=== PATIENT | female | born 1970 | race Caucasian/White ===

== ENCOUNTER 2018-10-07 07:32 | Outpatient (CLI) | payer BC, SELFPAY ==
[2018-10-07 10:44] LABS: ALT 25 U/L (12-78); AST 12 U/L (15-37); Albumin 3.5 g/dL (3.4-5.0); Alkaline Phosphatase 85 U/L (46-116); Anion Gap 7.2 mmol/L (3-11); BUN 14 mg/dL (7-18); Bilirubin, Total 0.3 mg/dL (0.2-1.0); CO2 27.8 mmol/L (21.0-32.0); CREATININE 0.94 mg/dL (0.55-1.02); Chloride 106 mmol/L (98-107); Cholesterol 191 mg/dL (50-200); Glucose 101 mg/dL (70-100); HDL Cholesterol 56 mg/dL (40-60); LDL CHOLESTEROL 108 mg/dL (<100); Potassium 4.4 mmol/L (3.5-5.1); Sodium 141 mmol/L (136-145); Total Protein 6.4 g/dL (6.4-8.2); Triglyceride 106 mg/dL (30-150)
== END 2018-10-07 07:52 ==
PROVIDERS: PCP Family Medicine; Visit Provider Family Medicine
DX: E78.5 Hyperlipidemia, unspecified (principal); I51.9 Heart disease, unspecified
CPT/HCPCS: 36415; 80053; 80061; 83721

== ENCOUNTER 2019-01-09 00:27 | Outpatient (CLI) | payer BC, SELFPAY ==
--- NOTE | 2019-01-09 14:17 | DI.US_ITS ---
SYMPTOMS/DIAGNOSIS: 6 MOS BULGE/PAIN RIGHT LATERAL TO UMBILICUS, ? 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 A reducible fat-containing hernia was demonstrated, increasing with Valsalva. IMPRESSION: Reducible fatty-containing hernia to the right of the umbilicus.
--- NOTE | 2019-01-09 15:15 | DI.MRI_ITS ---
SYMPTOMS/DIAGNOSIS: RIGHT KNEE PAIN FOR PAST 4 WEKS, INTERNAL DERANGEMENT, M23.91, CLICKS AND LIMITED EXTENSION S/P TWISTING INJURY 1 MO AGO MRI OF THE RIGHT KNEE: Fat-suppressed T2 axial, proton density and fat-suppressed T2 sagittal and coronal and proton density oblique sagittal sequences were performed. There are no plain films available for comparison. The cruciate and collateral ligaments and extensor mechanism appear intact. There is a moderate-sized joint effusion. There is also some edema seen anterior to the patellar tendon, as well as throughout the subcutaneous fat. There is abnormal signal in the posterior horn of the medial meniscus with both horizontal components as well as a radially oriented tear at the medial posterior horn. The medial meniscus is mildly peripherally displaced, particularly at the anterior horn. There are osteophytes from the medial femoral condyle and medial tibial plateau. There is mild degenerative signal change in the marrow, as well as mild cartilage thinning. Minimal cartilage thinning is seen involving the patellar cartilage inferiorly. The lateral meniscus appears intact. There is a tiny Anna's cyst. IMPRESSION: Complex tear of the posterior horn of the medial meniscus. Degenerative changes of the medial femorotibial joint. Mild patellofemoral degenerative changes.
== END 2019-01-09 00:47 ==
PROVIDERS: PCP Family Medicine; Visit Provider Family Medicine
DX: K45.8 Other specified abdominal hernia without obstruction or gangrene (principal); M25.561 Pain in right knee; M23.91 Unspecified internal derangement of right knee; S83.241A Other tear of medial meniscus, current injury, right knee, initial encounter; M17.11 Unilateral primary osteoarthritis, right knee
CPT/HCPCS: 73721; 76705

== ENCOUNTER 2019-03-07 08:12 | Day surgery (SDC) | payer BC, SELFPAY ==
[2019-03-07] VITALS (10 sets, daily range): BP systolic 90–132; BP diastolic 50–89; PULSE 62–83; RESP 9–18; TEMP 35–36.5; O2SAT 92–99
[2019-03-07] MEDS: Lactated Ringers 1,000 ML 80 ML IV (09:00)
[2019-03-07] MEDS: ceFAZolin 2 GM/50 ML BAG IVPB (09:26)
[2019-03-07] MEDS: Bupivacaine 0.5% Pres-Free 30 ML VIAL (10:18)
--- NOTE | 2019-03-07 10:28 | PDOC.DSDIS_ITS ---
Documented by User: YOMAIRA Galindo 03/07/19 10:33 Discharge Plan Disposition Patient Disposition: HOME Condition: Good Discharge Details Reason For Visit: Right knee arthroscopy Attending Provider: Jorge Lanza Primary Care Provider: Rubi Fernandez Home Meds and New Rx's Prescriptions: New hydrocodone-acetaminophen 5-325 mg tablet 1 tab PO Q6H PRN (Reason: pain) Qty: 6 RF: 0 acetaminophen 500 mg tablet 500 mg PO Q6H PRN (Reason: pain) Qty: 60 RF: 0 ondansetron 4 mg tablet,disintegrating 4 mg PO QID PRN (Reason: nausea and vomiting) Qty: 8 RF: 0 Continued lisinopril 20 mg tablet 20 mg PO DAILY Qty: 90 RF: 4 furosemide 40 mg tablet See Rx Instructions PO DAILY Qty: 135 RF: 5 potassium chloride 20 MEQ tablet,ER particles/crystals 20 meq PO DAILY Qty: 90 RF: 4 nitroglycerin 0.4 MG tablet, sublingual 0.4 mg Sublingual PRN Qty: 25 RF: 11 aspirin [Aspir-81] 81 MG tablet,delayed release (DR/EC) 81 mg PO DAILY Qty: 1 RF: 0 cetirizine [Zyrtec] 10 mg tablet 10 mg PO DAILY Qty: 90 RF: 12 atorvastatin 40 mg tablet 40 mg PO DAILY Qty: 90 RF: 11 ranitidine HCl 300 mg capsule 300 mg PO DAILY Qty: 90 RF: 3 ibuprofen 600 mg Tablet 600 mg PO TID PRNQty: 60 RF: 0 Discharge Instructions Stand Alone Forms: Pool Knee Arthroscopy, DSU Post op Instructions, Rosa Johnson (DSU) Referrals: Jorge Lanza MD [ [facility] STAFF PHYSICIAN] - Equipment/Supplies: Partial Weight Bearing Crutches Activity:: Activity as Tolerated Remove Dressings/Wound Care:: 72 hours Shower/Bathe:: 72 hours Diet:: As Tolerated Discharge Orders Discharge Orders: Discharge Order (Routine); Ordered 03/07/19 Ordered By: Kendell Marie Discharge Data Discharge Date/Time-TO BE ENTERED AT DEPARTURE: 03/07/19 14:15 DS: Diagnosis Discharge Diagnosis (1) Tear of medial meniscus of right knee: Status: Acute Documented by User: Jorge Lanza MD 03/08/19 06:41 Discharge Plan Disposition Patient Disposition: HOME Condition: Good Discharge Details Reason For Visit: Right knee arthroscopy Attending Provider: Jorge Lanza Primary Care Provider: Rubi Fernandez Home Meds and New Rx's Prescriptions: New hydrocodone-acetaminophen 5-325 mg tablet 1 tab PO Q6H PRN (Reason: pain) Qty: 6 RF: 0 acetaminophen 500 mg tablet 500 mg PO Q6H PRN (Reason: pain) Qty: 60 RF: 0 ondansetron 4 mg tablet,disintegrating 4 mg PO QID PRN (Reason: nausea and vomiting) Qty: 8 RF: 0 Continued lisinopril 20 mg tablet 20 mg PO DAILY Qty: 90 RF: 4 furosemide 40 mg tablet See Rx Instructions PO DAILY Qty: 135 RF: 5 potassium chloride 20 MEQ tablet,ER particles/crystals 20 meq PO DAILY Qty: 90 RF: 4 nitroglycerin 0.4 MG tablet, sublingual 0.4 mg Sublingual PRN Qty: 25 RF: 11 aspirin [Aspir-81] 81 MG tablet,delayed release (DR/EC) 81 mg PO DAILY Qty: 1 RF: 0 cetirizine [Zyrtec] 10 mg tablet 10 mg PO DAILY Qty: 90 RF: 12 atorvastatin 40 mg tablet 40 mg PO DAILY Qty: 90 RF: 11 ranitidine HCl 300 mg capsule 300 mg PO DAILY Qty: 90 RF: 3 ibuprofen 600 mg Tablet 600 mg PO TID PRNQty: 60 RF: 0 Discharge Instructions Stand Alone Forms: Pool Knee Arthroscopy, DSU Post op Instructions, Rosa Johnson (DSU) Referrals: Jorge Lanza MD [ [facility] STAFF PHYSICIAN] - Equipment/Supplies: Partial Weight Bearing Crutches Activity:: Activity as Tolerated Remove Dressings/Wound Care:: 72 hours Shower/Bathe:: 72 hours Diet:: As Tolerated Discharge Orders Discharge Orders: Discharge Order (Routine); Ordered 03/07/19 Ordered By: Kendell Marie Discharge Data Discharge Date/Time-TO BE ENTERED AT DEPARTURE: 03/07/19 14:15
[2019-03-07] MEDS: fentaNYL 100 MCG/2 ML VIAL IVP (11:14)
[2019-03-07] MEDS: Droperidol 5 MG/2 ML VIAL 0.625 MG IVP (12:39)
[2019-03-07] MEDS: HYDROcodone 5/Acetaminophen 325 TAB PO (12:57)
--- NOTE | 2019-03-08 06:47 | ROE_ITS ---
Date of service: 03/07/19 Time of Service: 12:42 Operative Note DATE OF PROCEDURE: 03/07/19 PRE-OP DIAGNOSIS: Right knee medial meniscus tear POST-OP DIAGNOSIS: other (Right knee medial meniscus tear involving the meniscal root) PROCEDURE: Arthroscopic partial medial meniscectomy, medial compartment chondroplasty SURGEON: Jorge Lanza ANESTHESIA: GETA ESTIMATED BLOOD LOSS: 0 PATHOLOGY: none sent COMPLICATIONS: None Patient was transported to: PACU Patient's condition: stable Indications: I have seen Silvia in clinic for symptoms of a meniscus tear. This was confirmed based on MRI and exam findings. Nonoperative measures were exhausted but disability and pain persisted. I discussed knee arthroscopy with meniscal intervention with the patient. I reviewed the risks of the procedure to include, but not limited to, bleeding, infection, pain, stiffness, damage to nerves or vessels, recurrence, blood clot. Despite these risks, the patient elected to proceed. Findings: A diagnostic arthroscopy was performed with the following findings: Suprapatellar Pouch: Some mild diffuse inflammatory change, no loose bodies Medial Compartment: Complex medial meniscal tear with both vertical and horizontal components along with a radial tear just medial to the meniscal root, grade II chondromalacia, no loose bodies Notch: ACL and PCL were intact Lateral Compartment: No meniscal tear, intact meniscal root, no significant chondromalacia or signs of arthritis, no loose bodies Patellofemoral Compartment: No significant chondromalacia, no apparent patellar maltracking Procedure Description: Silvia was greeted in the preoperative holding area where the correct side was identified and marked. The consent was reviewed with the patient and signed. The history and physical was updated. All questions were answered. Silvia was taken back to the operating room. The patient was placed into the reeder pine position on the operating room table. A nonsterile tourniquet was placed high onto the leg but not used. All bony prominences were well padded. Prophylactic antibiotics in the form of cefazolin were administered. The right leg was then prepped with Chloraprep and draped in a standard fashion with stockinette and extremity drape. A timeout to confirm correct identity, side and site, procedure, allergies, anesthesia, and medical concerns was performed. The leg was placed into a pneumatic leg alfredo, [id number]. A standard lateral portal was made at the lateral border of the patella tendon in line with the inferior pole of the patella, soft spot. The skin and deep tissue was incised sharply and the blunt trochar was inserted atraumatically. A diagnostic arthroscopy was performed and the findings are listed above. The suprapatellar pouch had mild inflammatory change. The patellofemoral articulation showed no articular damage as well as good tracking. The lateral gutter had no loose bodies and the medial gutter had no loose bodies. The knee was brought into some valgus stress in extension to open the medial compartment. A medial portal was made, localized by a spinal needle. The portal was created with an #11 blade through skin and capsule under direct visualization avoiding any meniscal injury. A probe was then inserted into the medial compartment. The medial com partment was fully inspected. The chondral surface of the tibia showed grade I/II chondromalacia and the surface of the femur showed grade II/III chondromalacia. The medial meniscus had a complex meniscal tear. This had free fragment seen at the posterior horn with both horizontal and vertical components. These were debrided down. However, and probing the meniscus there is seem to be some extra motion to the meniscus and I would expect. With further debridement I was able to expose a radial tear which was just medial to the posterior root. There are signs of attempted healing at this site. The periphery was still slightly attached to the capsule which prevented gross mobility. I used a shaver to debride down the radial tear. I also trephinated the area with a spinal needle to hopefully encourage some healing potential. Using a notable stitch device, I tried to place a suture for a [id number] radial repair. However, the stump attached to the posterior tibia was too small. Given some of the mild to moderate arthritic changes, her age, and the plan for a faster recovery and return to work, I did not perform any meniscal root repair. Cartilage surfaces were debrided of any flaps, leaving any intact fibers. The notch was then inspected which showed an intact ACL and an intact PCL. The leg was then brought into a figure of 4 position. The lateral compartment was fully inspected with the arthroscope and a probe. The chondral surface of the lateral femur showed no significant chondromalacia. The chondral surface of the lateral tibia showed no significant chondromalacia. The lateral meniscus had no meniscal tear. The arthroscope was brought back into the suprapatellar pouch and the leg was in full extension. The knee was thoroughly irrigated with the arthroscopic fluid on high flow and pressure. Inflow was stopped and excess fluid was removed. The wounds were closed with 4-0 Nylon. They were dressed with Xeroform, 4x4 gauze, ABD pad, Kerlix and an MADELYN wrap. A cryo-cuff was applied. The patient tolerated the procedure well and was returned to the Same Day Surgery area in a stable condition suffering no known complication. After she had awake from anesthesia I did inform her about the discovery of a radial tear at the level of the meniscal root. I also discussed how I did not do a complete repair given the situation. She expressed understanding and was happy that we did not move forward with meniscal repair as she is uncertain if she wants to go through that rehabilitation.
== END 2019-03-07 14:15 | disposition home or self-care (01) ==
PROVIDERS: PCP Family Medicine; Visit Provider Student in an Organized Health Care Education/Training Program
PROC: (CPT 29870; principal; 2019-03-07 09:30)
DX: S83.231A Complex tear of medial meniscus, current injury, right knee, initial encounter (principal); X58.XXXA Exposure to other specified factors, initial encounter; M94.261 Chondromalacia, right knee; I10 Essential (primary) hypertension
CPT/HCPCS: 29881; E0114; J0690; J1100; J1790; J1885; J2250; J2405; J3010

== ENCOUNTER 2019-08-29 08:12 | Day surgery (SDC) | payer BC, SELFPAY ==
[2019-08-29] VITALS (11 sets, daily range): BP systolic 87–130; BP diastolic 48–90; PULSE 57–80; RESP 12–17; TEMP 36–36.6; O2SAT 97–100
[2019-08-29] MEDS: Lactated Ringers 1,000 ML 80 ML IV (08:58)
--- NOTE | 2019-08-29 09:00 | ROE_ITS ---
DATE: AUGUST 29, 2019 Preoperative Diagnosis: Incisional hernia Postoperative Diagnosis: Same Operation: Incisional hernia repair with mesh Surgeon: Ena Regan M.D. Fine Arts Chair: YOMAIRA Martinez Indications: This is a 49 year-old woman with a tender lump at her umbilicus. The patient has had multiple prior surgeries with incisions utilizing the umbilical area primarily for laparoscopy. Procedure: She was placed supine on the operating table. Under general anesthetic, she was prepped and draped sterilely. The patient had several small infra-umbilical incisions present that could not be utilized to repair the hernia. I therefore made a curvilinear incision extending vertically to the right of the umbilicus. This was done after injecting local anesthetic. The subcutaneous tissue was divided with cautery down to a moderate sized hernia sac. This was dissected free of the surrounding subcutaneous tissue and the umbilical sac was divided and elevated to fully expose the fascial defect. There was an approximately 3 cm. fascial defect. The hernia sac had a trapped piece of omentum that was freed up from the sac and reduced. I amputated the majority of the hernia sac which was not sent to pathology. The undersurface of the fascia was cleared off and then a medium Ventralex mesh was placed under the fascia to cover the hernia defect. This was sutured in four quadrants with #0 Prolene sutures in a buried mattress pattern. I then closed the redundant hernia sac and fascia over the mesh with a running #0 Vicryl stitch. The pocket was irrigated. Hemostasis was achieved with cautery. A #3-0 Vicryl stitch was used to suture down the umbilical sac and then to reapproximate the subcutaneous tissue. The skin was closed with a running #4-0 Monocryl subcuticular stitch. She tolerated the procedure well and was stable to recovery.
[2019-08-29] MEDS: ceFAZolin 2 GM/50 ML BAG IVPB (09:32)
[2019-08-29] MEDS: Lidocaine 2% Multi-Dose 50 ML VIAL (09:46)
--- NOTE | 2019-08-29 11:01 | W.PM.DSUDISC ---
Discharge Plan Disposition Patient Disposition: HOME Condition: Good Discharge Details Reason For Visit: Incisional hernia repair with mesh Attending Provider: Ena Regan Primary Care Provider: Rubi Fernandez Home Meds and New Rx's Prescriptions: Continued nitroglycerin 0.4 MG tablet, sublingual 0.4 mg Sublingual PRN Qty: 25 RF: 11 aspirin [Aspir-81] 81 MG tablet,delayed release (DR/EC) 81 mg PO DAILY Qty: 1 RF: 0 cetirizine [Zyrtec] 10 mg tablet 10 mg PO DAILY Qty: 90 RF: 12 atorvastatin 40 mg tablet 40 mg PO DAILY Qty: 90 RF: 11 potassium chloride 20 mEq tablet,ER particles/crystals 20 meq PO DAILY Qty: 90 RF: 4 furosemide 40 mg tablet See Rx Instructions PO DAILY Qty: 135 RF: 5 lisinopril 20 mg tablet 20 mg PO DAILY Qty: 90 RF: 4 acetaminophen 500 mg tablet 500 mg PO Q6H PRN (Reason: pain) Qty: 60 RF: 0 Discharge Instructions Additional Instructions: The top bandage can be removed tomorrow. The steri strips will usually stick for about a week. When the edges start to curl up, they can be removed. It is okay to shower tomorrow, the water can run over the steri strips Do not swim or soak in a tub for two weeks Call for any concerns including fever, increased pain, vomiting, incision redness or drainage. Do not lift more than 15 pounds for four weeks. Walking and stairs are fine. Do not drive if on narcotic pain meds or if limited by pain. May use Tylenol alternating with ibuprofen for pain control. Ice is also an option. The maximum dose for Tylenol is 4000 mg/day. May use ibuprofen 800 mg every 8 hours as needed. If concerned about constipation, you may use a stool softener or milk of magnesia. Referrals: Ena Regan MD [ [facility] STAFF PHYSICIAN] - (Return for a postop check in 10-14 days) Activity:: Do not lift more than 15 pounds for four weeks Remove Dressings/Wound Care:: 24 hours Shower/Bathe:: 24 hours Diet:: As Tolerated Discharge Orders Discharge Orders: Discharge Order (Routine); Ordered 08/29/19 Ordered By: Ena Regan DS: Diagnosis Discharge Diagnosis (1) Incisional hernia: Status: Acute
[2019-08-29] MEDS: Normal Saline Flush 10 ML SYR IV (11:32)
[2019-08-29] MEDS: fentaNYL 100 MCG/2 ML VIAL IVP ×2 (11:32→12:00)
== END 2019-08-29 13:41 | disposition home or self-care (01) ==
PROVIDERS: PCP Family Medicine; Visit Provider Surgery
PROC: (CPT 49560; principal; 2019-08-29 09:30)
DX: K43.2 Incisional hernia without obstruction or gangrene (principal); I10 Essential (primary) hypertension
CPT/HCPCS: 49560; 49568; C1781; J0690; J1100; J1885; J2405; J3010

== ENCOUNTER 2020-05-18 17:43 | Emergency (ER) | payer OTHER, SELFPAY ==
--- NOTE | 2020-05-18 17:45 | DI.US_ITS ---
EXAM: US LOWER EXTREMITY VENOUS RT CLINICAL HISTORY: R/O DVT TECHNIQUE: Right lower extremity venous ultrasound performed using grayscale, color-flow, and spectr al Doppler analysis. COMPARISON: No exams were available for comparison FINDINGS: The right common femoral, femoral and popliteal veins demonstrate normal compressibility, augmentatio n, and color Doppler. The posterior tibial veins are patent. The saphenofemoral junction is unremark able. There is no evidence of a Anna cyst. Edema in the soft tissues of the calf. IMPRESSION: No DVT. DATA REPOSITORY:
[2020-05-18 17:50] VITALS: BP 183/95; PULSE 109; TEMP 37.1; O2SAT 97
--- NOTE | 2020-05-18 17:57 | ED.GENADUL_ITS ---
Discharge Plan Disposition Patient Disposition: HOME Condition: Stable Discharge Details Chief Complaint: Vascular Clinical Impression: Cellulitis of leg, right Primary Care Provider: Rubi Fernandez ED Provider: Deborah Littlejohn Home Meds and New Rx's Prescriptions: New cephalexin 500 mg tablet 500 mg PO BID 7 Days Qty: 14 RF: 0 No Action nitroglycerin 0.4 MG tablet, sublingual 0.4 mg Sublingual PRN Qty: 25 RF: 11 aspirin [Aspir-81] 81 MG tablet,delayed release (DR/EC) 81 mg PO DAILY Qty: 1 RF: 0 cetirizine [Zyrtec] 10 mg tablet 10 mg PO DAILY Qty: 90 RF: 12 atorvastatin 40 mg tablet 40 mg PO DAILY Qty: 90 RF: 11 potassium chloride 20 mEq tablet,ER particles/crystals 20 meq PO DAILY Qty: 90 RF: 4 furosemide 40 mg tablet See Rx Instructions PO DAILY Qty: 135 RF: 5 lisinopril 20 mg tablet 20 mg PO DAILY Qty: 90 RF: 4 acetaminophen 500 mg tablet 500 mg PO Q6H PRN (Reason: pain) Qty: 60 RF: 0 Discharge Instructions Instructions: Cellulitis (ED) Additional Instructions: The Doppler of your right lower extremity was negative for DVT at this time. At this time we will treat you for possible cellulitis. Please keep an eye on the redness and swelling. Should be getting better in the next 2 to 3 days. Return to the ER for any fever, worsening redness, worsening swelling, chest pain or shortness of breath. Follow up with primary care provider in 3-5 days. Return to ED sooner if any worsening or concerns. Increase oral fluids. Please take Tylenol or Ibuprofen with food every 4-6 hours as needed for pain and swelling. Referrals: Rubi Fernandez MD, [place] [Primary Care Provider] - Discharge Data Discharge Date/Time-TO BE ENTERED AT DEPARTURE: 05/18/20 20:50 Medical Decision Making Labs ordered to rule out cellulitis or infectious nature. CBC, CMP, d-dimer, and IV. Ultrasound venous Doppler right lower extremity ordered. Tach has been called and and is due to be here at approximately 1845. Differential diagnosis includes DVT, cellulitis, muscle strain. Doppler is negative for DVT at this time discussed results with patient, verbalized understanding. At this time will treat as a cellulitis. Will give cephalexin 5 mg twice a day x7 days. Discussed strict return instructions and instructed to return or be seen sooner if any worsening. Patient remained hemodynamically stable throughout stay denies chest pain or shortness of breath. This text was generated using [employer] system, please disregard any oddities of phrase or misspellings. HPI General Mode of arrival: ambulatory . Date/Time Provider Initiated Documentation: 05/18/20 17:46 . Limitations to Documentation: no limitations . Information obtained by: patient . HPI Narrative: 50-year-old female presents to the ER with right lower extremity swelling, mild erythema, warmth, and tenderness which began on Wednesday. Patient denies any chest pain, shortness of breath, fever or chills. She does have some small superficial abrasions noted to her anterior cooley which she reports is from weed whacking. She does report calf tenderness and increased tenderness with plantar flexion. She is a non-smoker, denies any long trips in a car or plane. Past medical history includes hypertension, hyperlipidemia, ovarian cyst, SVT and tricuspid valve insufficiency. She does have a past surgical history of vaginal hysterectomy, cholecystectomy, appendectomy, cardiac ablation. Related Data Home Medications Medication Instructions Recorded Confirmed aspirin [Aspir-81] 81 mg PO DAILY #1 tab-cap 03/14/18 05/18/20 nitroglycerin 0.4 mg SUBLINGUAL PRN #25 tab-cap 03/14/18 05/18/20 atorvastatin 40 mg tablet 40 mg PO DAILY #90 tab-cap 01/16/19 05/18/20 cetirizine 10 mg tablet 10 mg PO DAILY #90 tab-cap 01/16/19 05/18/20 acetaminophen 500 mg PO Q6H PRN #60 tab 03/07/19 05/18/20 potassium chloride 20 mEq 20 meq PO DAILY #90 tab-cap 03/09/19 05/18/20 tablet,extended release(part/cryst) furosemide 40 mg tablet See Rx Instructions PO DAILY #135 07/27/19 05/18/20 tab lisinopril 20 mg tablet 20 mg PO DAILY #90 tab 07/27/19 05/18/20 cephalexin 500 mg PO BID 7 Days #14 tab 05/18/20 Previous Rx's Medication Instructions Recorded aspirin [Aspir-81] 81 mg PO DAILY #1 tab-cap 03/14/18 nitroglycerin 0.4 mg SUBLINGUAL PRN #25 tab-cap 03/14/18 atorvastatin 40 mg tablet 40 mg PO DAILY #90 tab-cap 01/16/19 cetirizine 10 mg tablet 10 mg PO DAILY #90 tab-cap 01/16/19 acetaminophen 500 mg PO Q6H PRN #60 tab 03/07/19 potassium chloride 20 mEq 20 meq PO DAILY #90 tab-cap 03/09/19 tablet,extended release(part/cryst) furosemide 40 mg tablet See Rx Instructions PO DAILY #135 07/27/19 tab lisinopril 20 mg tablet 20 mg PO DAILY #90 tab 07/27/19 cephalexin 500 mg PO BID 7 Days #14 tab 05/18/20 Allergies Allergy/AdvReac Type Severity Reaction Status Date / Time No Known Allergies Allergy Verified 05/18/20 17:55 General Stated Complaint: Vascular DARSHAN: 3 Review of Systems Narrative: Constitutional: Negative for weight loss, alert and oriented, well groomed, normal body habitus, appears comfortable. HEENT: Denies trauma, headaches, blurry vision, nasal discharge, sore throat, trouble swallowing. Chest: Denies chest pain, palpitations, irregular rhythm, hypertension. Respiratory: Denies Shortness of breath, cough, hemoptysis. GI: Denies abdominal pain, nausea, vomiting, diarrhea, constipation. : Denies dysuria, hematuria, flank pain, rectal bleeding. Musculoskeletal: Right lower extremity swelling, erythema, tenderness x4 to 5 days. Neuro: Denies dizziness, blurry vision, weakness, syncope, headache or facial numbness. Hematologic: Denies easy bruising, intolerance to heat or cold, hair loss. [facility] Medical History Abnormal uterine bleeding (AUB) Depression (Chronic 12/03/14) Diastolic dysfunction (Chronic 01/03/15) chest tightness, wheezing, relieved by lasix Fibroid uterus Fibroid, uterine (Resolved) 07/08/11 multiple fibroids. Uterus measures [id number] Gastritis (Chronic 05/20/09) 05/29 EGD: Chronic active gastritis; no HPylori History of postoperative nausea and vomiting (Acute) Hyperlipidemia (Chronic) Hypertension (Chronic) Pelvic pain in female (Resolved) 07/08/11 Right ovarian cyst (Resolved) 07/08/11 RLQ abdominal pain (Resolved) 08/17/11 Supraventricular tachycardia (Resolved) S/P ablation in 2003; punctured aorta secondary to ablation; 2010 - second ablation - successful Tricuspid valve insufficiency (Chronic 04/07/18) Pt. states PCP Rubi Fernandez f/u with pt. Surgical History BLADDER CYSTOSCOPY 03/10/17 cardiac ablation 2003 with rutptured aorta, 2010 successful procedure History of appendectomy (Chronic) History of cholecystectomy (Chronic) History of incisional hernia repair (Acute) S/P endometrial ablation (Resolved) Status post arthroscopy of right knee (Chronic 03/07/19) Partial medial meniscectomy Medial chondroplasty Trigger Finger release 08/12/16;THUMB ON RIGHT HAND Vaginal hysterectomy (03/10/17) Family History Mother Diabetes Essential hypertension Heart disease Hyperlipidemia Myocardial infarction Father Diabetes Alcohol abuse Essential hypertension Heart disease Hyperlipidemia Myocardial infarction Neoplasm THROAT/LUNG COPD (chronic obstructive pulmonary disease) Sister Depression Stroke Brother Diabetes Essential hypertension Heart disease Myocardial infarction Brother Essential hypertension Heart disease Myocardial infarction Brother Myocardial infarction Brother Alcohol abuse Depression Social History Smoking/Tobacco Use Status: Never Alcohol Intake: current Alcohol Intake frequency: a few times a month Alcohol type: wine Drug use: Never Substance use type: does not use 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 Appears stated age. Obese body habitus. Head: Normocephalic, no trauma. Eyes: Pupils PERRLA, Red reflex noted, EOM's intact. Eyelids symmetrical without lesions, discharge, or swelling. ENT: Bilateral TM's WNL, External ear normal to inspection, no mastoid TTP, swelling, or erythema, Nasal turbinates WNL, no nasal discharge. Normal dentition, Posterior pharynx WNL, no exudate. Chest: RRR, Normal S1, S2, distal pulses intact. Resp: Lungs clear to auscultation bilaterally, no wheezes, rales, or rhonchi. Musculoskeletal: Normal gait, 5/5 strength to all four extremities. Right lower extremity mildly swollen compared to left, some superficial abrasions noted to the anterior cooley, mild erythema and warmth noted. Increased tenderness with plantar flexion. Negative Homans sign. Skin: Capillary refill less than 2 sec. Neurologic: Cranial nerves II-XII intact. Alert and oriented x 3. DTR's intact. Hematologic/Lymphatic: No ecchymosis, no lymphadenopathy. Course Vital Signs Vital signs: Vital Signs Temperature 37.1 C 05/18/20 17:50 Pulse 109 H 05/18/20 17:50 Blood Pressure 183/95 H 05/18/20 17:50 Pulse Oximetry 97 05/18/20 17:50 Temperature 37.1 C 05/18/20 17:50 Temperature Source Temporal Artery Scan 05/18/20 17:50 Pulse 109 H 05/18/20 17:50 Respiratory Effort Non-Labored 05/18/20 17:53 Blood Pressure 183/95 H 05/18/20 17:50 Blood Pressure Position Sitting 05/18/20 17:50 Pulse Oximetry 97 05/18/20 17:50 Oxygen Delivery Method Room Air 05/18/20 17:50 Oxygen Flow Rate 0 05/18/20 17:50 Pain Level 3 05/18/20 17:50
[2020-05-18 18:30] VITALS: RESP 16
[2020-05-18 18:42] LABS: Abs Immature Grans 0.04 10^3/uL (0.0-0.06); Absolute Basophil Count 0.02 10^3/uL (0.0-0.2); Absolute Eosinophil Count 0.89 10^3/uL (0.0-0.7); Absolute Lymphocyte Count 1.41 10^3/uL (1.2-3.4); Absolute Monocyte Count 0.64 10^3/uL (0.1-0.8); Absolute Neutrophil Count 4.66 10^3/uL (1.2-6.7); Basophils % 0.3; Eosinophils % 11.6; HCT 37.9 % (36.0-46.0); HGB 12.6 g/dL (11.2-15.7); Immature Grans % 0.5; Lymphocytes % 18.4; MCH 30.3 pg (27.0-33.0); MCHC 33.2 % (32.0-36.0); MCV 91.1 fL (80-95); MPV 9.2 fL (8.0-11.0); Monocytes % 8.4; Neutrophils % 60.8; Nucleated RBC 0 %; Platelet Count 246 10^3/uL (130-400); RBC 4.16 10^6/uL (3.93-5.22); RDW 13.1 % (11.7-14.6); RDW-SD 43.6 fL; WBC 7.66 10^3/uL (4.4-10.8)
[2020-05-18 18:54] LABS: ALT 35 U/L (14-59); AST 22 U/L (15-37); Albumin 3.6 g/dL (3.4-5.0); Alkaline Phosphatase 86 U/L (46-116); Anion Gap 9.2 mmol/L (3-11); BUN 13 mg/dL (7-18); Bilirubin, Total 0.4 mg/dL (0.2-1.0); CO2 28.8 mmol/L (21.0-32.0); CREATININE 1.01 mg/dL (0.55-1.02); Calcium 8.4 mg/dL (8.5-10.1); Chloride 104 mmol/L (98-107); Estimated GFR 58.02 (mL/min/1.73m2); Glucose 104 mg/dL (74-106); Potassium 3.3 mmol/L (3.5-5.1); Sodium 142 mmol/L (136-145); Total Protein 6.7 g/dL (6.4-8.2)
[2020-05-18 19:25] LABS: D-Dimer 835 ng/mlFEU (<500)
[2020-05-18 19:26] VITALS: BP 148/88; PULSE 88; RESP 16; O2SAT 98
--- NOTE | 2020-05-18 19:58 | DI.VRAD_ITS ---
PROCEDURE INFORMATION: Exam: US Duplex Right Lower Extremity Veins, Limited Exam date and time: 05/18/2020 17:59 Age: 50 years old Clinical indication: Edema, localized; Lower extremity, right; Patient HX: RT calf swelling and tenderness. TECHNIQUE: Imaging protocol: Real-time Duplex ultrasound of the Right Lower Extremity with 2-D dangelo scale, color Doppler flow and spectral waveform analysis with image documentation. Limited exam was focused on the right lower extremity veins. COMPARISON: No relevant prior studies available. FINDINGS: Right deep veins: The common femoral, femoral and popliteal veins are patent without thrombus. Normal compressibility, augmentation response and Doppler waveforms. Visualized calf veins are patent. Right superficial veins: Saphenofemoral junction is patent without thrombus. Soft tissues: Superficial swelling distally. No focal fluid collections. IMPRESSION: No deep venous thrombus. Dictated and Authenticated by: Nelly Bergman MD. Ordering:ISAK Cabrera MD
[2020-05-18 20:45] VITALS: BP 140/83; PULSE 80; RESP 16; TEMP 36.8; O2SAT 98
== END 2020-05-18 20:50 | disposition home or self-care (01) ==
PROVIDERS: Emergency Provider Registered Nurse Emergency; PCP Family Medicine
DX: L03.115 Cellulitis of right lower limb (principal); I10 Essential (primary) hypertension
CPT/HCPCS: 36415; 80053; 99284; 85025; 85379; 93971

== ENCOUNTER 2020-05-23 20:33 | Outpatient (REF) | payer OTHER, SELFPAY ==
[2020-05-23 21:06] LABS: Anion Gap 6.7 mmol/L (3-11); BUN 15 mg/dL (7-18); CO2 31.3 mmol/L (21.0-32.0); Calcium 9.1 mg/dL (8.5-10.1); Chloride 105 mmol/L (98-107); Glucose 97 mg/dL (74-106); Magnesium 2.2 mg/dL (1.8-2.4); Potassium 4.4 mmol/L (3.5-5.1); Sodium 143 mmol/L (136-145)
== END 2020-05-23 20:53 ==
LOC: LBN 20:33
PROVIDERS: PCP Nurse Practitioner Family; Visit Provider Nurse Practitioner Family
DX: E87.6 Hypokalemia (principal)
CPT/HCPCS: 80048; 83735

== ENCOUNTER 2020-06-04 07:47 | Outpatient (CLI) | payer OTHER, SELFPAY ==
[2020-06-05 12:54] LABS: COVID-19 RT-PCR Result NEGATIVE (Negative)
== END 2020-06-04 08:07 ==
PROVIDERS: PCP Nurse Practitioner Family; Visit Provider Surgery
DX: Z11.59 Encounter for screening for other viral diseases (principal); Z01.818 Encounter for other preprocedural examination
CPT/HCPCS: U0003

== ENCOUNTER 2020-06-07 09:12 | Day surgery (SDC) | payer OTHER, SELFPAY ==
[2020-06-07 09:24] VITALS: BP 126/87; PULSE 98; RESP 16; TEMP 36; O2SAT 99
[2020-06-07] MEDS: Lactated Ringers 1,000 ML 80 ML IV (09:56)
--- NOTE | 2020-06-07 11:02 | W.PM.DSUDISC ---
Discharge Plan Disposition Patient Disposition: HOME Condition: Good Discharge Details Reason For Visit: EGD, Colonoscopy Attending Provider: Ena Regan Primary Care Provider: Erin Velez Home Meds and New Rx's Prescriptions: Continued polyethylene glycol 3350 17 gram/dose powder 17 g PO ONCE Qty: 238 RF: 0 nitroglycerin 0.4 MG tablet, sublingual 0.4 mg Sublingual PRN Qty: 25 RF: 11 aspirin [Aspir-81] 81 MG tablet,delayed release (DR/EC) 81 mg PO DAILY Qty: 1 RF: 0 atorvastatin 40 mg tablet 40 mg PO DAILY Qty: 90 RF: 4 lisinopril 20 mg tablet 20 mg PO DAILY Qty: 90 RF: 4 furosemide 40 mg tablet 20 - 40 mg PO BID Qty: 135 RF: 4 cetirizine [Zyrtec] 10 mg tablet 10 mg PO DAILY Qty: 90 RF: 4 potassium chloride 20 mEq tablet,ER particles/crystals 20 meq PO DAILY Qty: 90 RF: 4 acetaminophen 500 mg tablet 500 mg PO Q6H PRN (Reason: pain) Qty: 60 RF: 0 Discontinued polyethylene glycol 3350 17 gram/dose powder 238 g PO ONCE Qty: 238 RF: 0 bisacodyl 5 mg tablet,delayed release (DR/EC) 5 mg PO ONCE Qty: 4 RF: 0 Discharge Instructions Additional Instructions: Findings: The stomach and esophagus looked normal. Routine biopsies were taken. Two small polyps were removed from the colon. My office will send a letter with biopsy results. Follow up: If the biopsy shows adenomatous polyps you will need a colonoscopy in 5-7 years. Please call if you develop: fevers >101.5 Nausea or Vomiting Abdominal pain that is not transient DAY SURGERY UNIT POST EGD/COLONOSCOPY INSTRUCTIONS 1. Because there will be medication in your system for the next 24 hours, you may feel a little sleepy. Your coordination will be affected. Therefore: a. Do not drive or operate dangerous equipment for 24 hours. b. Do not drink alcohol beverages for 24 hours (not even beer). c. Plan to go home and rest for the day. 2. Generally there are no restrictions on your activity after a day or so has gone by, but you may feel a bit fatigued for a few days. 3 After you arrive home you may have a light meal and return to a normal diet as you can tolerate it without feeling sick to your stomach. 4. After surgery, you may feel pain or discomfort. This should be only transient, but if it persists please contact your doctor. 5. If there are any questions regarding the findings of your procedure, please feel free to contact your doctor. 6. If you are unable to contact your doctor with a problem, contact the hospital at [phone]. 7. Continue all your regular medications unless directed otherwise. I understand the above instructions and have no questions. Signature of Patient or Responsible Adult Escort Date/Time Name of Responsible Adult Escort Signature of Nurse Date/Time Activity:: Activity as Tolerated Diet:: As Tolerated Discharge Orders Discharge Orders: Discharge Order (Routine); Ordered 06/07/20 Ordered By: Ena Regan DS: Diagnosis Discharge Diagnosis (1) Mild chronic gastritis: Status: Acute (2) Colon polyps: Status: Acute
--- NOTE | 2020-06-07 11:03 | W.COLOREPORT ---
Date of service: 06/07/20 Time of Service: 12:06 Colonoscopy Report Date of procedure: 06/07/20 Pre-op diagnosis general: Dysphagia, screening Post-op diagnosis procedure note: other (Minimal gastritis, colon polyps) Procedure: EGD with duodenal and gastric biopsy Colonoscopy with random biopsies and cold forceps polypectomy Surgeon: Ena Regan Anesthesia proc note operative: MAC Indications: This 50 year old woman presents for EGD to evaluate dysphagia. She also complains of diarrhea. This is her first colonoscopy. No FH colon cancer. Procedure Description: The patient was placed in the left lateral position and propofol titrated to sedation. The endoscope was advanced into the esophagus under direct visualization. The scope was passed through the stomach and into the duodenum. There was no duodenitis or ulceration noted. Biopsies were taken from the second portion of the duodenum to evaluate for celiac disease. The stomach itself showed minimal inflammation. Retroflexed view of the fundus and lesser curvature were normal. Routine biopsies were taken from the gastric antrum. The GE junction was inspected and showed no significant stricture, inflammation, masses or Barretts. The scope was slowly withdrawn with no other esophageal lesions found. Digital rectal examination revealed no abnormalities. The scope was advanced to the cecum without difficulty. The ileocecal valve and appendiceal orifice were clearly identified. The prep was good. The scope was slowly withdrawn over the course of greater than 6 minutes with random biopsies performed to evaluated for microscopic colitis. No abnormalities were seen in the ascending, transverse, descending colon. A diminuitive polyp was removed from the sigmoid colon and from the rectum with the cold forceps. The rectum was otherwise normal including on retroflexed view. The patient tolerated the procedure well and was stable to recovery. If the polyps are adenomatous, plan for a colonoscopy in 5-7 years.
--- NOTE | 2020-06-07 11:24 | BOWEL_PTH ---
PATIENT: Silvia Shirley LOC: [facility] U#:[id number] AGE/SX: 50/F ROOM: RE06/07/[address]: Ena Regan MD : 1970 BED: DIS: 06/07/2020 SPEC #: [id number] RECD: 06/07/20 12:59 STATUS: THANH REAnnie #: [id number] NAHUM: 06/07/20 11:[address]: Ena Regan DEPT: Surgical Specimen RECD BY: Aneta Szymanski ENTERED: 06/07/20 13:01 SP TYPE: Bowel OTHR DR: Erin Velez, TRENT Tissues: 1 - BIOPSY BOWEL 2 - STOMACH BIOPSY 3 - BIOPSY BOWEL 4 - BIOPSY BOWEL 5 - BIOPSY BOWEL Procedures: GROSS AND MICRO LEVEL 4 Comments: [id number]
[2020-06-07 12:25] VITALS: BP 138/86; PULSE 90; RESP 16; TEMP 36.5; O2SAT 99
== END 2020-06-07 12:57 | disposition home or self-care (01) ==
PROVIDERS: PCP Nurse Practitioner Family; Visit Provider Surgery
PROC: (CPT 45380; principal; 2020-06-07 10:45)
DX: Z12.11 Encounter for screening for malignant neoplasm of colon (principal); R13.10 Dysphagia, unspecified; D12.5 Benign neoplasm of sigmoid colon; K62.1 Rectal polyp; K29.70 Gastritis, unspecified, without bleeding
CPT/HCPCS: 45380; 43239; 88305; J2001

== ENCOUNTER 2020-11-15 03:07 | Outpatient (CLI) | payer OTHER, SELFPAY ==
--- NOTE | 2020-11-15 07:30 | DI.RAD_ITS ---
EXAM: XR CHEST 2V PA LATERAL CLINICAL HISTORY: persistent dry cough,r05 TECHNIQUE: 2D digital imaging was performed. COMPARISON: CR CHEST 2 VIEWS PA,LAT from 06/30/2013 FINDINGS: The heart size is normal. Sternal wires are noted. The lungs are well inflated and clear. No infil trate, effusion, mass or adenopathy is seen. There are minimal degenerative changes in the thoracic spine. IMPRESSION: No acute pulmonary findings. DATA REPOSITORY: RADIATION DOSE DELIVERED:
== END 2020-11-15 03:08 ==
LOC: DI 03:07
PROVIDERS: PCP Nurse Practitioner Family; Visit Provider Nurse Practitioner Family
DX: R05 Cough (principal)
CPT/HCPCS: 71046

== ENCOUNTER 2020-12-12 16:15 | Outpatient (REF) | payer OTHER, SELFPAY ==
[2020-12-12 15:13] LABS: Bilirubin Negative (Negative); Blood Negative (Negative); Clarity Clear (Clear); Glucose Negative (Negative); Ketones Negative (Negative); Leukocyte Esterase Negative (Negative); Nitrite Negative (Negative); Specific Gravity 1.025 (1.005-1.025); Urobilinogen 0.2 EU/dL (Up TO 0.2)
== END 2020-12-12 16:16 | disposition home or self-care (01) ==
LOC: LBN 16:15
PROVIDERS: PCP Nurse Practitioner Family; Visit Provider Nurse Practitioner Family
DX: R39.15 Urgency of urination (principal)
CPT/HCPCS: 81003

== ENCOUNTER 2021-01-01 01:56 | Outpatient (CLI) | payer OTHER, SELFPAY ==
--- NOTE | 2021-01-01 06:00 | DI.MAMMO_ITS ---
EXAM: MG MAMMO SCREENING CLINICAL HISTORY: screening,z12.39. TECHNIQUE: Bilateral full field digital CC and MLO mammographic images were obtained with 3D tomosyn thesis and utilizing computer aided detection (CAD). COMPARISON: Prior mammograms dating back to 2014, the most recent being December 2016. FINDINGS: There are no CAD designations. There are no new spiculated masses nor malignant appearing microcalcification groups. There is no significant architectural distortion nor skin thickening-retraction. IMPRESSION: No radiographic evidence of malignancy. BI-RADS Category 1 - Negative Breast Density - Category A - Almost entirely fatty Breast density Category C or D implies that the patient has dense breast tissue. Dense breast tissue can make it harder to find cancer on a mammogram. Dense breast tissue is also associated with an incr eased risk of breast cancer. This information about the result of the mammogram report was provided to the patient to raise their awareness. Use this report when you speak with the patient about their risks for breast cancer, which includes their family history. At that time, you may recommend additional screening tests (Ultrasoun d or MRI) as these tests may add significant information. A negative radiographic report should not delay biopsy if a dominant or clinically suspicious mass is present. Up to ten percent of cancers are not identified on mammography. A negative report may reinforce clinical impression. Adenosis and dense breasts may obscure an underlying neoplasm. False positive reports average 6 to 10%. Patient will receive a letter notifying them of these results.
--- NOTE | 2021-01-01 07:26 | DI.US_ITS ---
APPROVED REPORT EXAM: Comprehensive 2D, Doppler, and color-flow Echocardiogram Patient Location: Out-Patient Apprentice Photographer: Angelina Brewer RDCS (AE) Indications: Tricuspid Regurgitation, HX of SVT, CRUZ Other Information Study Quality: Adequate Conclusion Normal left ventricular wall thickness and chamber size. Estimated ejection fraction is 60%. There are no segmental wall motion abnormalities Normal right ventricular size and systolic function Both atria are normal in size There are no structural valvular abnormalities Mild mitral and tricuspid regurgitation. Estimated right ventricular systolic pressure is normal, 23 mmHg Mildly dilated ascending aorta measuring 3.58 cm Wall motion Left Ventricle The left ventricle is normal size. The left ventricular systolic function is normal. The left ventric ular ejection fraction is within the normal range. There is normal left ventricular wall thickness. T here is normal LV segmental wall motion. There is no ventricular septal defect visualized. LVEF is 59 %. Right Ventricle The right ventricle is normal size. The right ventricular systolic function is normal. The RVSP is 22 .7 mmHg. Atria The left atrium size is normal. Left atrium is not well visualized. Left atrium is borderline dilated . Left atrium is mildly dilated. The right atrium size is normal. The interatrial septum is intact wi th no evidence for an atrial septal defect. Aortic Valve The aortic valve is normal in structure. Aortic valve is trileaflet. There is no aortic valvular sten osis. No aortic regurgitation is present. Mitral Valve The mitral valve is normal in structure. No evidence of mitral valve stenosis. Mild mitral regurgitat ion. Tricuspid Valve The tricuspid valve is normal in structure. There is no tricuspid valve stenosis. Mild tricuspid regu rgitation. Pulmonic Valve The pulmonary valve is normal in structure. There is no pulmonic valvular stenosis. There is no pulmo marie valvular regurgitation. Great Vessels The aortic root is normal in size. The ascending aorta is mildly dilated.3.58 cm Aortic arch is mari l in caliber. IVC is normal in size and collapses >50% with inspiration. Pericardium There is no pericardial effusion. 2D Dimensions IVSD d PLAX 1.00 cm F: 0.6-1.0 LV Vol A2C d MOD 119.6 mL LVPW d PLAX 1.02 cm F: 0.6 - 1.0 LV Vol A4C d MOD 150.4 mL LVID d PLAX 4.63 cm F: 3.8 - 5.2 LA vol/ BSA A4C s A-L 31.6 mL/m2 LVDs 3.30 cm F: 2.2 - 3.5 LA Area A4C s MOD 21.99 cm2 Ao Root d 2.72 cm F: 2.7 - 3.3 LV EF A4C MOD 59.8 % RA Area A4C 13.02 cm2 LV EF A2C MOD 58.7 % RA Vol/ BSA A4C s A-L 13.3 mL/m2 LV EF Biplane MOD 59.0 % Ao Asc Diam d 3.58 cm F: 2.3 - 3.1 SV 79.83 mL LV EF Teichholz 55.1 % SV Index 35.91 mL/m2 LVEF (Fink's) 58.97 % F: 54 - 74 LV Volume 98.13 mL F: 46 - 106 LV Volume Index 44.20 mL/m2 F: 29 - 61 LV Vol Biplane MOD 135.4 mL FS 28.55 % M-Mode TAPSE 1.89 cm (M/F) >1.7 LV Diastology MV E' medial 0.087 (>0.07 m/s) E/A Ratio 1.5 LV E/e MED 9.40 (<14) MV E Vmax 0.82 (0.4-1.3 m/s) MV E' lateral 0.127 (>0.1 m/s) MV A Vmax 0.55 (0.4-1.3 m/s) LV E/e LAT 6.40 (<14) MV E/A Ratio 1.43 MV E/E' medial 9.42 MV E/E' lateral 6.45 Aortic Valve LVOT Area 3.71 cm2 AoV Area Vmax 2.37 cm2 LVOT Vmax 0.77 m/s AoV Area/ BSA (Vmax) 1.07 cm2/m2 LVOT Mean Perez. 0.52 m/s ASHLEY Mean Perez. 2.43 cm2 LVOT Peak Grad 2.4 mmHg ASHLEY Mean Perez. Index 1.09 cm2/m2 LVOT Mean Grad 1.2 mmHg LVOT VTI 0.165 m LVOT Diam s 2.15 cm AoV Vmax 1.20 m/s Velocity Ratio 0.64 AoV Mean Perez. 0.79 m/s AoV Peak Grad 5.8 mmHg LVOT SV 61.18 mL AoV Mean Grad 2.9 mmHg AoV VTI 0.253 m AoV Area VTI 2.42 cm2 AoV Area/ BSA (VTI) 1.09 cm/m2 Mitral Valve MV DT 186 (160-240 msec) MR Vmax 4.91 m/s MV PHT 54 msec MR VTI 1.924 m MV Area PHT 4.07 cm2 MR Peak Grad 96.6 mmHg MV VTI 0.260 m MR Mean Grad 71.5 mmHg MV VTI Annulus 0.266 m MV Area VTI 2.41 (4.0-6.0 cm2) Pulmonary Valve PV Vmax 0.94 (0.5-1.5 m/s) RVOT Peak Gr. 1.35 mmHg PV Peak Grad 3.5 mmHg RVOT Mean Gr. 0.70 mmHg PV Mean Grad 2.3 mmHg RVOT VTI 0.132 m PV VTI 0.215 m RVOT Vmax 0.58 m/s Tricuspid Valve TR Peak Grad 19.7 mmHg TR Vmax 2.22 m/s RA Pressure 3.00 mmHg RVSP (TR) 22.7 mmHg
== END 2021-01-01 02:16 ==
PROVIDERS: PCP Nurse Practitioner Family; Visit Provider Nurse Practitioner Family
DX: Z12.31 Encounter for screening mammogram for malignant neoplasm of breast (principal); I07.1 Rheumatic tricuspid insufficiency; R06.09 Other forms of dyspnea; Z86.718 Personal history of other venous thrombosis and embolism; I77.810 Thoracic aortic ectasia
CPT/HCPCS: 77063; 77067; 93306

== ENCOUNTER 2021-01-01 03:14 | Outpatient (CLI) | payer OTHER, SELFPAY ==
[2021-01-01 09:30] LABS: HCT 38.5 % (36.0-46.0); HGB 12.6 g/dL (11.2-15.7); MCHC 32.7 % (32.0-36.0); MCV 91.7 fL (80-95); MPV 9.6 fL (8.0-11.0); Platelet Count 269 10^3/uL (130-400); RDW 12.9 % (11.7-14.6); RDW-SD 43.3 fL
[2021-01-01 09:38] LABS: Hemoglobin A1C 5.7 % (<5.7)
[2021-01-01 10:42] LABS: Anion Gap 7.9 mmol/L (3-11); BUN 12 mg/dL (7-18); CO2 29.1 mmol/L (21.0-32.0); CREATININE 0.9 mg/dL (0.55-1.02); Calcium 9.4 mg/dL (8.5-10.1); Calculated LDL 113 mg/dL (<100); Chloride 104 mmol/L (98-107); Cholesterol 208 mg/dL (<200); Glucose 97 mg/dL (74-106); HDL Cholesterol 53 mg/dL (40-60); Potassium 4.3 mmol/L (3.5-5.1); Sodium 141 mmol/L (136-145); TSH 2.05 uIU/mL (0.36-3.74); Triglyceride 212 mg/dL (<150)
[2021-01-01 11:02] LABS: FREE T4 0.99 ng/dL (0.76-1.46)
== END 2021-01-01 03:15 | disposition home or self-care (01) ==
LOC: LBO 03:14
PROVIDERS: PCP Nurse Practitioner Family; Visit Provider Nurse Practitioner Family
DX: E78.5 Hyperlipidemia, unspecified (principal); I07.1 Rheumatic tricuspid insufficiency
CPT/HCPCS: 36415; 80048; 80061; 85027; 83036; 84439; 84443

== ENCOUNTER 2021-03-08 11:24 | Outpatient (CLI) | payer OTHER, SELFPAY ==
--- NOTE | 2021-03-08 | DI.RAD_ITS ---
Exam(s) XR CHEST 2V PA LATERAL EXAM: XR CHEST 2V PA LATERAL CLINICAL HISTORY: COUGH. TECHNIQUE: 2D digital imaging was performed. COMPARISON: CR XR CHEST 2V PA LATERAL from 11/15/2020 FINDINGS: Sternotomy wires again noted. Heart size remains normal mediastinum is not widened. Lungs are clear. No infiltrates nor pleural effusions. No pulmonary edema. No pneumothorax. IMPRESSION: No acute pulmonary findings.Sternotomy wires again noted. Normal heart size. DATA REPOSITORY: RADIATION DOSE DELIVERED:
--- NOTE | 2021-03-08 13:05 | DI.VRAD_ITS ---
PROCEDURE INFORMATION: Exam: XR Chest Exam date and time: 03/08/2021 11:27 AM Age: 50 years old Clinical indication: Patient HX: PT tested for covid-19. SOB, cough TECHNIQUE: Imaging protocol: XR of the chest. Views: 2 views. COMPARISON: CR XR CHEST 2V PA LATERAL 11/15/2020 9:57 AM FINDINGS: Lungs: Unremarkable. No consolidation. Pleural spaces: Unremarkable. No pleural effusion. No pneumothorax. Heart/Mediastinum: The cardiomediastinal silhouette is fairly stable in appearance. Bones/joints: Median sternotomy wires are again present. Degenerative changes again involve the spine. IMPRESSION: No evidence for acute pulmonary disease. Dictated and Authenticated by: Gerardo Almaguer MD. Ordering:RITO Rosen MD
== END 2021-03-08 11:44 ==
PROVIDERS: PCP Nurse Practitioner Family; Visit Provider Physician Assistant Medical
DX: R05 Cough (principal)
CPT/HCPCS: 71046

== ENCOUNTER 2021-03-08 15:58 | Outpatient (REF) | payer OTHER, SELFPAY ==
[2021-03-09 13:28] LABS: COVID-19 RT-PCR UVMMC Result Negative (Negative)
== END 2021-03-09 15:39 | disposition home or self-care (01) ==
LOC: LBN 15:58
PROVIDERS: PCP Nurse Practitioner Family; Visit Provider Physician Assistant Medical
DX: Z20.822 Contact with and (suspected) exposure to COVID-19 (principal); J06.9 Acute upper respiratory infection, unspecified
CPT/HCPCS: U0003

== ENCOUNTER 2022-01-05 16:20 | Outpatient (CLI) | payer OTHER, SELFPAY ==
--- NOTE | 2022-01-05 16:15 | RT.EKG_ITS ---
APPROVED REPORT Exam: Resting ECG Reason for Exam: ADHD Patient Location: O HR:93 bpm ECG Measurements Heart Rate 93 AXIS SC 204 P 48 QRSd 106 QRS 25 QT 387 T 158 QTc 481 Conclusion Sinus rhythm...normal P axis, V-rate 60- 99 Borderline prolonged SC interval...SC >197, V-rate 91-[address]-T abnormalities
== END 2022-01-05 16:21 | disposition home or self-care (01) ==
LOC: DI.CM 16:21
PROVIDERS: PCP Nurse Practitioner Family; Visit Provider Nurse Practitioner Family
DX: F90.9 Attention-deficit hyperactivity disorder, unspecified type (principal); I10 Essential (primary) hypertension; Z79.899 Other long term (current) drug therapy; Z13.6 Encounter for screening for cardiovascular disorders
CPT/HCPCS: 93010

== ENCOUNTER 2022-01-15 03:06 | Outpatient (CLI) | payer OTHER, SELFPAY ==
[2022-01-15 08:51] LABS: Hemoglobin A1C 6.3 % (<5.7)
[2022-01-15 08:56] LABS: Anion Gap 6.5 mmol/L (3-11); BUN 20 mg/dL (7-18); CO2 35.5 mmol/L (21.0-32.0); CREATININE 1.1 mg/dL (0.55-1.02); Calcium 9.5 mg/dL (8.5-10.1); Chloride 99 mmol/L (98-107); Estimated GFR 52.36 (mL/min/1.73m2); Glucose 121 mg/dL (74-106); Potassium 3.1 mmol/L (3.5-5.1); Sodium 141 mmol/L (136-145)
== END 2022-01-15 03:07 | disposition home or self-care (01) ==
LOC: LBO 03:06
PROVIDERS: PCP Nurse Practitioner Family; Visit Provider Nurse Practitioner Family
DX: I10 Essential (primary) hypertension (principal); R73.03 Prediabetes
CPT/HCPCS: 36415; 80048; 83036

== ENCOUNTER 2022-01-28 00:07 | Outpatient (CLI) | payer OTHER, SELFPAY ==
--- NOTE | 2022-01-28 06:45 | DI.MAMMO_ITS ---
Exam(s) MAMMO SCREENING EXAM: MAMMO SCREENING CLINICAL HISTORY: screening,z12.39 TECHNIQUE: Mammograms were interpreted according to the usual protocol including computer analysis w [employer] CAD system, tomosynthesis and C-view imaging. COMPARISON: 2014 through 2020 FINDINGS: The breasts are composed of mainly fatty density , Breast Density category A. No suspicious masses or suspicious microcalcifications are seen. No skin thickening or abnormal axillary lymph nodes are seen. There has been no significant change from prior exams. IMPRESSION: BI-RADS Category 1, Negative mammogram Yearly screening mammography is recommended. Breast Density - Category A, fatty density. A negative radiographic report should not delay biopsy if a dominant or clinically suspicious mass is present. Up to ten percent of cancers are not identified on mammography. A negative report may reinforce clinical impression. Adenosis and dense breasts may obscure an underlying neoplasm. False positive reports average 6 to 10%. Patient will receive a letter notifying them of these results.
== END 2022-01-28 00:27 ==
PROVIDERS: PCP Nurse Practitioner Family; Visit Provider Nurse Practitioner Family
DX: Z12.31 Encounter for screening mammogram for malignant neoplasm of breast (principal)
CPT/HCPCS: 77063; 77067

== ENCOUNTER 2022-04-29 15:19 | Emergency (ER) | payer OTHER, SELFPAY ==
[2022-04-29] VITALS (46 sets, daily range): BP systolic 116–152; BP diastolic 73–104; PULSE 85–112; RESP 10–27; TEMP 36.2; O2SAT 94–100
--- NOTE | 2022-04-29 15:15 | RT.EKG_ITS ---
APPROVED REPORT Exam: Resting ECG Reason for Exam: chest pain Patient Location: E HR:117 bpm ECG Measurements Heart Rate 117 AXIS VT 141 P -4 QRSd 103 QRS 19 QT 297 T 194 QTc 413 Conclusion Sinus tachycardia...rate> 99 Repol abnrm suggests ischemia, anterolateral...ST dep, T neg, I aVL V2-V6 sinus tach, normal axis, normal intervals, consider rate related st depressions
--- NOTE | 2022-04-29 15:30 | DI.CT_ITS ---
Exam(s) CT CHEST PE CTA EXAM: CT CHEST PE CTA CLINICAL HISTORY: CP/SOB/Tachy. TECHNIQUE: Imaging Protocol: CT angiography of the chest was performed using pulmonary embolus dalia col. Multi planar reconstructions were performed. CONTRAST MATERIAL: Intravenous: Omnipaque 350 Contrast volume: 100 cc COMPARISON: No exams were available for comparison FINDINGS: CHEST: PULMONARY ARTERIES: There are no intraluminal filling defects to suggest acute pulmonary emboli. LUNGS: There are no infiltrates nor evidence of pulmonary infarction.. There is a tiny calcified gran uloma in the posterior basal segment of the right lower lobe. There is a 2 millimeter noncalcified n odule in the lateral aspect of the right upper lobe (series 5/image 32). No other focal pulmonary fi ndings and no pleural effusions. No pneumothorax. MEDIASTINUM: There is no hilar nor mediastinal adenopathy. Visualized thyroid unremarkable. CARDIAC: Sternotomy wires. Heart size upper normal. Mediastinum not widened.Caliber of the thoracic aorta is within normal limits. No dissection. There is no significant shift of the interventricular septum. PARTIALLY VISUALIZED UPPERMOST ABDOMEN: No obvious findings OSSEOUS: No significant osseous lesions.. IMPRESSION: 1. No evidence of acute pulmonary emboli. No evidence of pulmonary infarction.No pleural effusions. 2. There is a 2 millimeter noncalcified nodule lateral aspect of the right upper lobe. Follow-up CT in 1 year recommended. 3. Sternotomy wires. No aortic dilatation nor dissection nor pericardial effusion. RADIATION DOSE DELIVERED: 650.36mGy.cm Total DLP DATA REPOSITORY: All CT scans at this facility are submitted to the National Radiology Data Registry (NRDR) Dose Index Registry (DIR) with the [employer] (ACR). RADIATION OPTIMIZATION: All CT scans at this facility use at least one of these dose optimization te chniques: automated exposure control; mA and/or kV adjustment per patient size (includes targeted exa ms where dose is matched to clinical indication); or iterative reconstruction.
--- NOTE | 2022-04-29 15:44 | W.ED.GENAD ---
Discharge Plan Disposition Patient Disposition: HOME Condition: Improving Discharge Details Clinical Impression: Chest pain, Hypokalemia Primary Care Provider: Erin Velez ED Provider: Kashif Mathias Home Meds and New Rx's Prescriptions: Continued chlorthalidone 25 mg tablet 25 mg PO DAILY Qty: 90 3RF Rx Instructions: Take 1 tablet daily omeprazole 20 mg capsule,delayed release(DR/EC) 20 mg PO DAILY losartan 100 mg tablet 100 mg PO DAILY Qty: 90 4RF Rx Instructions: Take 1 tablet once a day atorvastatin 40 mg tablet 40 mg PO DAILY Qty: 90 4RF cetirizine [Zyrtec] 10 mg tablet 10 mg PO DAILY Qty: 90 4RF dextroamphetamine-amphetamine 10 mg capsule,extended release 24hr 10 mg PO BID MDD 20mg Qty: 56 0RF Discharge Instructions Instructions: Chest Pain (ED), Hypokalemia (ED) Additional Instructions: Laboratory values here in the ER do not reveal any obvious emergent process. Rapid cardiac rule out in the ER has been negative. We discussed observation versus admission and you prefer to be discharged home. I believe this to be a reasonable plan but please watch for new or worsening symptoms and return immediately to the ER. Otherwise please contact your primary care tomorrow to discuss her ER visit, ongoing symptoms, need for outpatient reevaluation. As we discussed outpatient stress test is likely indicated for further evaluation of your symptoms. Discharge Data Discharge Date/Time-TO BE ENTERED AT DEPARTURE: 04/29/22 20:17 Medical Decision Making This is a 52-year-old female who reports a past medical history of SVT that resulted in ablation, depression, GERD, hyperlipidemia, obesity, tricuspid valve regurgitation, hypertension presented to the ER reporting initially chest pain that began about 4 hours ago but did not keep her conversation and actually had symptoms last night that resolved spontaneously and then again began today, generally simply not feeling well. Reports her pain currently at a 6 out of 10, more of a pressure as opposed to a true pain. She reports that her other symptoms that she felt such as radiation of her anterior neck, nausea, diaphoresis, etc. have resolved completely. Clinically she appears slightly anxious, her pulse in triage was 112 but during my evaluation was in the 90s. We will initiate a cardiac work-up, give full dose aspirin and reassess. Patient reports that with full dose aspirin pain went from a 6 down to a 3 Patient reports pain went from a 3 to a 0 after a single nitro Laboratory values reveal no evidence of leukocytosis, anemia, thrombocytopenia. Did INR 1.0, D-dimer is 266, but given her initial presentation with tachycardia, I did pursue CTA.. Sodium 142, potassium 2.9, will replenish the potassium both orally and through the IV. Anion gap normal at 6.5 creatinine 0.9 with a GFR greater than 60. Calcium 9.5 magnesium 1.9 total bili 0.5. ALT minimally elevated at 64, alk phosphatase minimally elevated at 137. Troponin is less than 50. TSH of 2.57. Urinalysis unremarkable. COVID negative Discussed initial work-up with patient, she continues to be asymptomatic, awaiting results of her CTA and she is agreeable to awaiting a delta troponin and EKG. CTA reveals no PE but is suggestive of a bronchitis. Certainly bronchitis could present with chest pressure and symptoms increasing with a deep breath. Repeat EKG performed 1900 reveals sinus rhythm, ventricular rate of 86. No STEMI. Delta troponin was less than 50 Using shared decision making we discussed cardiac observation admission, serial troponins, hopefully expedite echo and stress test versus discharge home and prompt outpatient follow-up. At this time patient remains asymptomatic, hemodynamically stable, and requesting discharge. I believe this to be a reasonable plan and she did ensure me that she would return to the ER for new or evolving symptoms. Patient does understand that there is an inherent risk of choosing to be discharged home with outpatient follow-up. Standard discharge and return precautions were provided. Patient understands, is agreeable to this plan, and has no additional questions or concerns upon discharge. This documentation was generated using [employer] dictation system, please disregard any oddities of phrase or misspellings. Medical Records Medical records reviewed: Yes I reviewed the patient's medical records. Imaging Data Radiologic Study: Attestation: I personally reviewed and interpreted this imaging study as follows: Imaging: CT Scan Radiologist's impression: PROCEDURE INFORMATION: Exam: CTA Chest With Contrast Exam date and time: 04/29/2022 5:02 PM Age: 52 years old Clinical indication: Other: Cp/sob/tachy TECHNIQUE: Imaging protocol: Computed tomographic angiography of the chest with contrast. 3D rendering (Not supervised by radiologist): MIP and/or 3D reconstructed images were created by the technologist. Contrast material: 350; Contrast volume: 90 ml; Contrast route: INTRAVENOUS (IV); COMPARISON: CR XR CHEST 2V PA LATERAL 03/08/2021 11:38 AM FINDINGS: Tubes, catheters and devices: There are multiple sternal wires which appear intact. Pulmonary arteries: No filling defects within the pulmonary arteries are identified to suggest pulmonary embolism. Aorta: There is focal atherosclerotic calcification involving the proximal descending thoracic aorta with minimal focal bulging of the aortic contour in this region. No aortic dissection is identified. There is no thoracic aortic aneurysm. Lungs: There are scattered regions of mild pulmonary parenchymal scarring/subsegmental atelectasis. There is mild central peribronchial thickening. The central airways are patent. Pleural spaces: There are no pleural effusions present. Heart: Heart size is normal. There is no pericardial effusion. Lymph nodes: There is no evidence of lymphadenopathy. Gallbladder and bile ducts: There has been a cholecystectomy.Bones/joints: There is multilevel [id number] spondylosis of the lower thoracic spine. No acute fractures are identified. Soft tissues: Unremarkable. IMPRESSION: 1. No pulmonary embolism identified. 2. Mild central peribronchial thickening suggesting bronchitis. Recommend clinical correlation. Lab Data Lab results reviewed: Yes I reviewed the patient's lab results. Labs: Laboratory Tests Range/Units 04/29/22 04/29/22 04/29/22 15:50 15:50 15:50 WBC (4.4-10.8) 10^3/uL 8.58 RBC (3.93-5.22) 10^6/uL 4.51 Hgb (11.2-15.7) g/dL 13.4 Hct (36.0-46.0) % 39.7 MCV (80-95) fL 88 MCH (27.0-33.0) pg 29.7 MCHC (32.0-36.0) % 33.8 RDW (11.7-14.6) % 13.0 Plt Count (130-400) 10^3/uL 265 MPV (8.0-11.0) fL 9.6 Immature Gran % 0.3 Neutrophils % 68.0 Lymphocytes % 20.2 Monocytes % 8.9 Eosinophils % 2.1 Basophils % 0.5 Nucleated RBC % (0.0-0.3) % 0.0 Absolute Neutrophils (1.2-6.7) 10^3/uL 5.84 Absolute Lymphocytes (1.2-3.4) 10^3/uL 1.73 Absolute Monocytes (0.1-0.8) 10^3/uL 0.76 Absolute Eosinophils (0.0-0.7) 10^3/uL 0.18 Absolute Basophils (0.0-0.2) 10^3/uL 0.04 PT (9.3-11.0) sec 9.8 INR (0.9-1.1) 1.0 APTT (21.0-27.5) sec 25.8 D-Dimer (<500) ng/mlFEU 266 Sodium (136-145) mmol/L 142 Potassium (3.5-5.1) mmol/L 2.9 L Chloride (98-107) mmol/L 102 Carbon Dioxide (21.0-32.0) mmol/L 33.5 H Anion Gap (3-11) mmol/L 6.5 BUN (7-18) mg/dL 15 Creatinine (0.55-1.02) mg/dL 0.9 Estimated GFR/1.73 m2 (mL/min/1.73m2) >= 60.00 Glucose (74-106) mg/dL 140 H Calcium (8.5-10.1) mg/dL 9.5 Magnesium (1.8-2.4) mg/dL 1.9 Total Bilirubin (0.2-1.0) mg/dL 0.5 AST (15-37) U/L 27 ALT (14-59) U/L 64 H Alkaline Phosphatase (46-116) U/L 137 H Troponin I (<or=60) ng/L < 50 NT-Pro-B Natriuret Pep (<300) pg/mL 78 Total Protein (6.4-8.2) g/dL 7.5 Albumin (3.4-5.0) g/dL 4.0 TSH (0.36-3.74) uIU/mL 2.57 Urine Color (Yellow) Urine Clarity (Clear) Urine pH (5-8) Ur Specific [place] (1.005-1.025) Urine Protein (Negative) mg/dL Urine Ketones (Negative) mg/dL Urine Blood (Negative) Urine Nitrite (Negative) Urine Bilirubin (Negative) Urine Urobilinogen (Up TO 0.2) EU/dL Ur Leukocyte Esterase (Negative) Urine Glucose (Negative) mg/dL COVID-19 Source SARS-CoV-2 (PCR) (Negative) Range/Units 04/29/22 04/29/22 04/29/22 16:00 18:25 18:50 WBC (4.4-10.8) 10^3/uL RBC (3.93-5.22) 10^6/uL Hgb (11.2-15.7) g/dL Hct (36.0-46.0) % MCV (80-95) fL MCH (27.0-33.0) pg MCHC (32.0-36.0) % RDW (11.7-14.6) % Plt Count (130-400) 10^3/uL MPV (8.0-11.0) fL Immature Gran % Neutrophils % Lymphocytes % Monocytes % Eosinophils % Basophils % Nucleated RBC % (0.0-0.3) % Absolute Neutrophils (1.2-6.7) 10^3/uL Absolute Lymphocytes (1.2-3.4) 10^3/uL Absolute Monocytes (0.1-0.8) 10^3/uL Absolute Eosinophils (0.0-0.7) 10^3/uL Absolute Basophils (0.0-0.2) 10^3/uL PT (9.3-11.0) sec INR (0.9-1.1) APTT (21.0-27.5) sec D-Dimer (<500) ng/mlFEU Sodium (136-145) mmol/L Potassium (3.5-5.1) mmol/L Chloride (98-107) mmol/L Carbon Dioxide (21.0-32.0) mmol/L Anion Gap (3-11) mmol/L BUN (7-18) mg/dL Creatinine (0.55-1.02) mg/dL Estimated GFR/1.73 m2 (mL/min/1.73m2) Glucose (74-106) mg/dL Calcium (8.5-10.1) mg/dL Magnesium (1.8-2.4) mg/dL Total Bilirubin (0.2-1.0) mg/dL AST (15-37) U/L ALT (14-59) U/L Alkaline Phosphatase (46-116) U/L Troponin I (<or=60) ng/L < 50 NT-Pro-B Natriuret Pep (<300) pg/mL Total Protein (6.4-8.2) g/dL Albumin (3.4-5.0) g/dL TSH (0.36-3.74) uIU/mL Urine Color (Yellow) Yellow Urine Clarity (Clear) Clear Urine pH (5-8) 8.5 H Ur Specific [place] (1.005-1.025) 1.020 Urine Protein (Negative) mg/dL Negative Urine Ketones (Negative) mg/dL Negative Urine Blood (Negative) Negative Urine Nitrite (Negative) Negative Urine Bilirubin (Negative) Negative Urine Urobilinogen (Up TO 0.2) EU/dL 1.0 H Ur Leukocyte Esterase (Negative) Negative Urine Glucose (Negative) mg/dL Negative COVID-19 Source Nasal/Nares SARS-CoV-2 (PCR) (Negative) Negative ECG Data Attestation: I personally reviewed and interpreted this ECG (s) as follows: Interpretation: Sinus tachycardia, ventricular of 117, repolarization abnormalities, ST depression, negative T waves, no STEMI. HPI General Mode of arrival: ambulatory. Date/Time Provider Initiated Documentation: 04/29/22 15:31. Limitations to Documentation: no limitations. Information obtained by: patient. HPI Narrative: This is a 52-year-old female, past medical history of hypertension, hyperlipidemia, tricuspid valve regurgitation, GERD, gastritis, prediabetes, presenting to the ER for evaluation of what she describes as substernal chest pain that actually began last night, subsequently resolved, then again began today this morning around 1130, was sitting at rest when it began, has progressively become worse throughout the day and is now currently a 6 out of 10, occasionally radiates to her left neck and is made worse with a deep breath. She reports she had occasional nausea but no vomiting. History of SVT with ablation. Patient reports family history of her parents having MIs in their 50s. Patient denies ever having any symptoms like this previously. She denies recent illness, trauma, headache, visual changes, sore throat, shortness of breath, abdominal pain, vomiting, change of bowel or bladder function, and, tingling, weakness, pain or swelling in her legs. She has not taken any medication prior to arrival. Related Data Home Medications Medication Instructions Recorded Confirmed omeprazole 20 mg capsule,delayed 20 mg PO DAILY 12/12/20 04/29/22 release atorvastatin 40 mg tablet 40 mg PO DAILY #90 tab-caps 05/29/21 04/29/22 losartan 100 mg tablet 100 mg PO DAILY #90 tabs 05/29/21 04/29/22 cetirizine 10 mg tablet (Zyrtec) 10 mg PO DAILY #90 tab-caps 08/06/21 04/29/22 chlorthalidone 25 mg tablet 25 mg PO DAILY #90 tabs 12/24/21 04/29/22 dextroamphetamine-amphetamine ER 10 mg PO BID #56 caps 04/01/22 04/29/22 10 mg 24hr capsule,extend release Previous Rx's Medication Instructions Recorded atorvastatin 40 mg tablet 40 mg PO DAILY #90 tab-caps 05/29/21 losartan 100 mg tablet 100 mg PO DAILY #90 tabs 05/29/21 cetirizine 10 mg tablet (Zyrtec) 10 mg PO DAILY #90 tab-caps 08/06/21 chlorthalidone 25 mg tablet 25 mg PO DAILY #90 tabs 12/24/21 dextroamphetamine-amphetamine ER 10 mg PO BID #56 caps 04/01/22 10 mg 24hr capsule,extend release Allergies Allergy/AdvReac Type Severity Reaction Status Date / Time No Known Allergies Allergy Verified 04/29/22 15:34 General Stated Complaint: Chest Pain DARSHAN: 2 Review of Systems Constitutional Constitutional: Denies fatigue, Denies fever(s), Denies headache(s) and Denies weakness Eyes Eyes: Denies change in vision ENT Ears, Nose, Mouth, and Throat: Denies headache(s) and Reports neck pain Cardiovascular Cardiovascular: Reports chest pain and Denies dyspnea Respiratory Respiratory: Denies cough and Denies dyspnea Gastrointestinal Gastrointestinal: Denies abdominal pain, Reports nausea and Denies vomiting Musculoskeletal Musculoskeletal: Denies back pain and Reports neck pain Integumentary/Breasts Skin/Breast: Denies rash Neurologic Neurologic: Denies headache(s) and Denies weakness Endocrine Endocrine: Denies fatigue Hematologic/Lymphatic Hematologic/Lymphatic: Denies easy bleeding and Denies easy bruising PFSH All Active Problems (Updated 04/29/22 @ 20:03 by YOMAIRA Garcia) Chest pain (Acute) Hypokalemia (Acute) ADHD (attention deficit hyperactivity disorder) (Chronic) Essential hypertension (Chronic) Hyperlipidemia (Chronic) Prediabetes (Chronic) Tricuspid valve regurgitation (Chronic) GERD (gastroesophageal reflux disease) (Chronic) Gastritis (Chronic) Chronic cough (Chronic) Cxray 11/2020 benign Tubular adenoma of colon (Chronic) On colonoscopy in 2019 Obesity (Chronic) Medical History Abnormal uterine bleeding Diastolic dysfunction Major depressive disorder Supraventricular tachycardia s/p ablation in 2004 (aortic perforation during procedure) and 2011 (successful) Surgical History History of appendectomy History of cholecystectomy History of esophagogastroduodenoscopy (EGD) (06/07/20) History of incisional hernia repair (08/29/19) History of radiofrequency ablation procedure for cardiac arrhythmia (09/28/11) For SVT S/P colonoscopy (06/07/20) S/P laparoscopic assisted vaginal hysterectomy (LAVH) (03/11/17) For AUB S/P right knee arthroscopy (03/07/19) Partial medial meniscectomy, Medial chondroplasty S/P trigger finger release (08/12/16) Right thumb Family History Mother , 71 from colon cancer Diabetes Heart disease Hyperlipidemia Myocardial infarction Colon cancer Hypertension Father , 73 Diabetes Alcohol abuse Heart disease Hyperlipidemia Myocardial infarction COPD (chronic obstructive pulmonary disease) Lung cancer Throat cancer Hypertension Sister Depression Stroke Brother Diabetes Heart disease Myocardial infarction Hypertension Brother Heart disease Myocardial infarction Diabetes Brother Myocardial infarction Heart disease Brother , at 29 from snow machine accident Alcohol abuse Depression Son No problems noted. Son No problems noted. Maternal Grandfather No problems noted. 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 Pets and animals: Yes Pets and animals: cat(s) and dog(s) Sexually active: Yes Do you think of yourself as: straight/heterosexual Current gender identity: female What is your relationship status?: How often do you talk on the phone with friends or family?: twice per week How often do you get together with friends or relatives?: once per week Do you belong to any clubs or organized social groups?: no Panel score (0-1 are the most socially isolated patients): 2 What type of physical activity do you participate in: none Deepika/Religious: Congregation Seatbelt use: always Drive intox or ride w/intox shuttle driver: No Do you feel safe at home: Yes Do you feel safe in your relationship?: Yes History History 2 Para 2 Hx # Term Pregnancies Multiple births Hx # Pregnancies Ectopic pregnancies AB induced Hx Number of Living Children 2 AB spontaneous Exam Const General: cooperative, healthy appearing, comfortable, no acute distress and anxious (Slightly) Orientation: alert, awake and oriented x3 HENMT Head: normal to inspection, normocephalic and atraumatic Face and sinus: normal facial exam Mouth: moist mucous membranes Eyes General: appearance normal, both eyes and all related structures Conjunctivae: conjunctivae normal Neck Neck: normal visual inspection, full ROM, trachea midline, supple and nontender Carotids: pulses diminished and no bruits Chest Chest: normal palpation of entire chest wall Resp Effort & Inspection: normal respiratory effort and able to speak in complete sentences Auscultation: clear to auscultation bilaterally Cardio Rate: regular rate Rhythm: regular rhythm GI Palpation: soft, not firm, no guarding, no pulsatile masses and nontender Auscultation: normal bowel sounds Back/Spine/Pelvis Back: No back tenderness Skin General skin exam: no rashes or lesions noted Neuro General: patient alert, patient awake, moves all extremities and no focal motor deficits Cognition: normal cognition Speech: speech normal Gait: normal gait Motor: muscle tone normal throughout Sensory Exam: no sensory deficits noted Extrem General: normal to inspection, full ROM, capillary refill normal, no pedal edema and no calf tenderness Psych Appearance: grossly normal Mental Status: mental status grossly normal Course Vital Signs Vital signs: Vital Signs Temperature 36.2 C L 04/29/22 15:25 Pulse 112 H 04/29/22 15:25 Respiratory Rate 18 04/29/22 15:25 Blood Pressure 146/93 H 04/29/22 15:25 Pulse Oximetry 99 04/29/22 15:25 Temperature 36.2 C L 04/29/22 15:25 Temperature Source Temporal Artery Scan 04/29/22 15:25 Pulse 112 H 04/29/22 15:25 Respiratory Rate 16 04/29/22 15:37 Respiratory Effort Non-Labored 04/29/22 15:37 Respiratory Depth Normal 04/29/22 15:37 Respiratory Pattern Normal 04/29/22 15:37 Blood Pressure 146/93 H 04/29/22 15:25 Blood Pressure Position Supine 04/29/22 15:25 Pulse Oximetry 99 04/29/22 15:25 Oxygen Delivery Method Room Air 04/29/22 15:25 Oxygen Flow Rate 0 04/29/22 15:25 Pain Level 7 04/29/22 15:37
[2022-04-29] MEDS: Aspirin 81 MG CHEW 324 MG CH (15:56)
[2022-04-29 15:59] LABS: Abs Immature Grans 0.03 10^3/uL (0.0-0.06); Absolute Basophil Count 0.04 10^3/uL (0.0-0.2); Absolute Eosinophil Count 0.18 10^3/uL (0.0-0.7); Absolute Lymphocyte Count 1.73 10^3/uL (1.2-3.4); Absolute Monocyte Count 0.76 10^3/uL (0.1-0.8); Absolute Neutrophil Count 5.84 10^3/uL (1.2-6.7); Basophils % 0.5; Eosinophils % 2.1; HCT 39.7 % (36.0-46.0); HGB 13.4 g/dL (11.2-15.7); Immature Grans % 0.3; Lymphocytes % 20.2; MCH 29.7 pg (27.0-33.0); MCHC 33.8 % (32.0-36.0); MCV 88 fL (80-95); MPV 9.6 fL (8.0-11.0); Monocytes % 8.9; Platelet Count 265 10^3/uL (130-400); RBC 4.51 10^6/uL (3.93-5.22); RDW-SD 41.9 fL; WBC 8.58 10^3/uL (4.4-10.8)
[2022-04-29 16:18] LABS: PTT Activated 25.8 sec (21.0-27.5); Prothrombin Time 9.8 sec (9.3-11.0)
[2022-04-29 16:21] LABS: ALT 64 U/L (14-59); AST 27 U/L (15-37); Alkaline Phosphatase 137 U/L (46-116); Anion Gap 6.5 mmol/L (3-11); BUN 15 mg/dL (7-18); Bilirubin, Total 0.5 mg/dL (0.2-1.0); CO2 33.5 mmol/L (21.0-32.0); CREATININE 0.9 mg/dL (0.55-1.02); Calcium 9.5 mg/dL (8.5-10.1); Chloride 102 mmol/L (98-107); Glucose 140 mg/dL (74-106); Magnesium 1.9 mg/dL (1.8-2.4); NT-proBNP 78 pg/mL (<300); Sodium 142 mmol/L (136-145); TSH (W/Ref FT4) 2.57 uIU/mL (0.36-3.74); Total Protein 7.5 g/dL (6.4-8.2); Troponin I < 50 ng/L (<or=60)
[2022-04-29 16:23] LABS: Potassium 2.9 mmol/L (3.5-5.1)
[2022-04-29 16:24] LABS: Bilirubin Negative (Negative); Blood Negative (Negative); Clarity Clear (Clear); Glucose Negative (Negative); Ketones Negative (Negative); Leukocyte Esterase Negative (Negative); Nitrite Negative (Negative); pH 8.5 (5-8)
--- NOTE | 2022-04-29 16:28 | PDOC.ERCMPRO ---
- If Service Date Differs Date of service: 04/29/22 Time of Service: 16:28 Care Management Progress Note SBIRT screen: negative Pt reports no substance use or mental health symptoms.
[2022-04-29 16:33] LABS: D-Dimer 266 ng/mlFEU (<500)
[2022-04-29] MEDS: Potassium Chloride 20 MEQ TABCR 40 MEQ PO (16:55)
[2022-04-29] MEDS: nitroGLYcerin 0.4 MG TAB SL (17:00)
[2022-04-29] MEDS: Omnipaque 350 MG/ML 100 ML BTL IJ (17:08)
[2022-04-29] MEDS: POTASSIUM CHLORIDE 10 MEQ/100 ML BAG 100 MEQ IVPB (17:18)
--- NOTE | 2022-04-29 17:40 | DI.VRAD_ITS ---
PROCEDURE INFORMATION: Exam: CTA Chest With Contrast Exam date and time: 04/29/2022 5:02 PM Age: 52 years old Clinical indication: Other: Cp/sob/tachy TECHNIQUE: Imaging protocol: Computed tomographic angiography of the chest with contrast. 3D rendering (Not supervised by radiologist): MIP and/or 3D reconstructed images were created by the technologist. Contrast material: 350; Contrast volume: 90 ml; Contrast route: INTRAVENOUS (IV); COMPARISON: CR XR CHEST 2V PA LATERAL 03/08/2021 11:38 AM FINDINGS: Tubes, catheters and devices: There are multiple sternal wires which appear intact. Pulmonary arteries: No filling defects within the pulmonary arteries are identified to suggest pulmonary embolism. Aorta: There is focal atherosclerotic calcification involving the proximal descending thoracic aorta with minimal focal bulging of the aortic contour in this region. No aortic dissection is identified. There is no thoracic aortic aneurysm. Lungs: There are scattered regions of mild pulmonary parenchymal scarring/subsegmental atelectasis. There is mild central peribronchial thickening. The central airways are patent. Pleural spaces: There are no pleural effusions present. Heart: Heart size is normal. There is no pericardial effusion. Lymph nodes: There is no evidence of lymphadenopathy. Gallbladder and bile ducts: There has been a cholecystectomy. Bones/joints: There is multilevel [id number] spondylosis of the lower thoracic spine. No acute fractures are identified. Soft tissues: Unremarkable. IMPRESSION: 1. No pulmonary embolism identified. 2. Mild central peribronchial thickening suggesting bronchitis. Recommend clinical correlation. Dictated and Authenticated by: Jax Beasley MD. Ordering:JANEEN Rowland MD
[2022-04-29 18:28] LABS: Source Nasal/Nares
--- NOTE | 2022-04-29 18:45 | RT.EKG_ITS ---
APPROVED REPORT Exam: Resting ECG Reason for Exam: repeat Patient Location: E HR:86 bpm ECG Measurements Heart Rate 86 AXIS WV 183 P 2 QRSd 109 QRS 28 QT 407 T 20 QTc 488 Conclusion Sinus rhythm...normal P axis, V-rate 60- 99 sinus rhythm, normal axis, normal inretvals, non ischemic
[2022-04-29 19:06] LABS: COVID-19 PCR Negative (Negative)
[2022-04-29 19:24] LABS: Troponin I < 50 ng/L (<or=60)
== END 2022-04-29 20:17 | disposition home or self-care (01) ==
PROVIDERS: Emergency Provider Physician Assistant; PCP Nurse Practitioner Family
DX: E87.6 Hypokalemia (principal); R07.2 Precordial pain; I10 Essential (primary) hypertension; R00.0 Tachycardia, unspecified; Z20.822 Contact with and (suspected) exposure to COVID-19; Z77.22 Contact with and (suspected) exposure to environmental tobacco smoke (acute) (chronic)
CPT/HCPCS: 71275; 80053; 87635; 93005; 96365; 96366; 99285; 81003; 83735; 83880; 84443; 84484; 85025; 85379; 85610; 85730; 93010; J3480; J3490

== ENCOUNTER 2022-07-03 01:49 | Outpatient (CLI) | payer OTHER, SELFPAY ==
[2022-07-03 12:45] LABS: Hemoglobin A1C 6.2 % (<5.7)
[2022-07-03 13:23] LABS: Anion Gap 3.6 mmol/L (3-11); BUN 18 mg/dL (7-18); CO2 34.4 mmol/L (21.0-32.0); Calcium 9.6 mg/dL (8.5-10.1); Chloride 102 mmol/L (98-107); Estimated GFR 67.78 (mL/min/1.73m2); Glucose 111 mg/dL (74-106); Potassium 3.8 mmol/L (3.5-5.1); Sodium 140 mmol/L (136-145)
== END 2022-07-03 01:50 | disposition home or self-care (01) ==
LOC: LBO 01:49
PROVIDERS: PCP Nurse Practitioner Family; Visit Provider Nurse Practitioner Family
DX: R73.03 Prediabetes (principal); E87.6 Hypokalemia
CPT/HCPCS: 36415; 80048; 83036

== ENCOUNTER 2022-09-25 02:36 | Outpatient (CLI) | payer OTHER, SELFPAY ==
[2022-09-25 07:53] LABS: Anion Gap 5.6 mmol/L (3-11); BUN 17 mg/dL (7-18); CO2 34.4 mmol/L (21.0-32.0); Calcium 9.3 mg/dL (8.5-10.1); Chloride 99 mmol/L (98-107); Estimated GFR 67.78 (mL/min/1.73m2); Glucose 103 mg/dL (74-106); Potassium 3.2 mmol/L (3.5-5.1); Sodium 139 mmol/L (136-145)
== END 2022-09-25 02:37 | disposition home or self-care (01) ==
PROVIDERS: PCP Nurse Practitioner Family; Visit Provider Nurse Practitioner Family
DX: F90.9 Attention-deficit hyperactivity disorder, unspecified type (principal); E66.8 Other obesity; Z79.899 Other long term (current) drug therapy
CPT/HCPCS: 36415; 80048

== ENCOUNTER 2023-05-14 01:01 | Outpatient (CLI) | payer OTHER, SELFPAY ==
[2023-05-14 07:57] LABS: Anion Gap 5.6 mmol/L (3-11); BUN 18 mg/dL (7-18); CO2 33.4 mmol/L (21.0-32.0); Calcium 9.4 mg/dL (8.5-10.1); Calculated LDL 238 mg/dL (<100); Chloride 101 mmol/L (98-107); Cholesterol 323 mg/dL (<200); Estimated GFR 67.36 (mL/min/1.73m2); Glucose 110 mg/dL (74-106); HDL Cholesterol 55 mg/dL (40-60); Potassium 3.7 mmol/L (3.5-5.1); Sodium 140 mmol/L (136-145); Triglyceride 153 mg/dL (<150)
[2023-05-14 07:59] LABS: Hemoglobin A1C 5.7 % (<5.7)
== END 2023-05-14 01:02 | disposition home or self-care (01) ==
PROVIDERS: PCP Nurse Practitioner Family; Visit Provider Nurse Practitioner Family
DX: E78.5 Hyperlipidemia, unspecified (principal)
CPT/HCPCS: 36415; 80048; 80061; 83036

== ENCOUNTER 2023-06-07 16:08 | Emergency (ER) | payer OTHER, SELFPAY ==
[2023-06-07] VITALS (16 sets, daily range): BP systolic 151–162; BP diastolic 104–106; PULSE 75–101; RESP 11–20; TEMP 36.2; O2SAT 98–100
--- NOTE | 2023-06-07 16:00 | RT.EKG_ITS ---
APPROVED REPORT Exam: Resting ECG Reason for Exam: palpitations Patient Location: E HR:96 bpm ECG Measurements Heart Rate 96 AXIS NH 185 P 50 QRSd 112 QRS 40 QT 410 T 44 QTc 516 Conclusion Sinus rhythm...normal P axis, V-rate 60- 99 Atrial premature complexes...SV complexes w/ short R-R intvls Prolonged QT interval...QTc >510mS Normal sinus rhythm at a rate of 96 with interventricular conduction delay and prolonged QTc. Normal axis. No ST segment abnormalities. T wave flattening in V2. No acute injury pattern. Compared to prior dated last year QTc has lengthened and QRS is similar.
[2023-06-07 17:13] LABS: Abs Immature Grans 0.01 10^3/uL (0.0-0.06); Absolute Basophil Count 0.06 10^3/uL (0.0-0.2); Absolute Eosinophil Count 0.24 10^3/uL (0.0-0.7); Absolute Lymphocyte Count 1.62 10^3/uL (1.2-3.4); Absolute Monocyte Count 0.56 10^3/uL (0.1-0.8); Absolute Neutrophil Count 3.17 10^3/uL (1.2-6.7); Basophils % 1.1; Eosinophils % 4.2; HCT 39.5 % (36.0-46.0); HGB 13.7 g/dL (11.2-15.7); Immature Grans % 0.2; Lymphocytes % 28.6; MCH 30.5 pg (27.0-33.0); MCHC 34.7 % (32.0-36.0); MCV 88 fL (80-95); MPV 9.3 fL (8.0-11.0); Monocytes % 9.9; Platelet Count 243 10^3/uL (130-400); RBC 4.49 10^6/uL (3.93-5.22); RDW 12.8 % (11.7-14.6); RDW-SD 41.7 fL; WBC 5.66 10^3/uL (4.4-10.8)
[2023-06-07] MEDS: Normal Saline 1,000 ML 1000 ML IV (17:15)
[2023-06-07 17:36] LABS: ALT 26 U/L (14-59); AST 13 U/L (15-37); Alkaline Phosphatase 119 U/L (46-116); Anion Gap 9.1 mmol/L (3-11); BUN 21 mg/dL (7-18); Bilirubin, Total 0.4 mg/dL (0.2-1.0); CO2 28.9 mmol/L (21.0-32.0); Calcium 9.7 mg/dL (8.5-10.1); Chloride 101 mmol/L (98-107); Estimated GFR 67.36 (mL/min/1.73m2); Glucose 116 mg/dL (74-106); Magnesium 1.9 mg/dL (1.8-2.4); Potassium 3.1 mmol/L (3.5-5.1); Sodium 139 mmol/L (136-145); TSH (W/Ref FT4) 2.96 uIU/mL (0.36-3.74); Total Protein 7.6 g/dL (6.4-8.2); Troponin I < 50 ng/L (<or=60)
--- NOTE | 2023-06-07 18:32 | ED.GENADUL_ITS ---
Discharge Plan Disposition Patient Disposition: Home Discharge Details Clinical Impression: Palpitation, Essential hypertension Primary Care Provider: Erin Velez ED Provider: Juan Antonio Fernandez Home Meds and New Rx's Prescriptions: Continued omeprazole 20 mg capsule,delayed release(DR/EC) 20 mg PO DAILY losartan 100 mg tablet 100 mg PO DAILY Qty: 90 3RF Rx Instructions: Take 1 tablet once a day semaglutide (weight loss) 0.25 mg/0.5 mL pen injector 0.25 mg subcut QWEEK Qty: 2 0RF Rx Instructions: Week 1 through week 4: 0.25 mg once weekly cetirizine [Zyrtec] 10 mg tablet 10 mg PO DAILY Qty: 90 4RF chlorthalidone 25 mg tablet 25 mg PO DAILY Qty: 90 3RF Rx Instructions: Take 1 tablet daily potassium chloride 20 mEq tablet extended release 20 meq PO DAILY Qty: 90 3RF atorvastatin 40 mg tablet 40 mg PO DAILY Qty: 90 3RF dextroamphetamine-amphetamine 20 mg tablet 20 mg PO DAILY MDD 1 tab Qty: 28 0RF Rx Instructions: 1 tablet daily in the afternoon dextroamphetamine-amphetamine 20 mg capsule,extended release 24hr 40 mg PO DAILY MDD 40 Qty: 56 0RF Discharge Instructions Instructions: Heart Palpitations (ED), Hypertension (ED) Additional Instructions: As discussed return immediately to the emergency department for any new or significant worsening of symptoms which will include chest pain, syncope or pass ing out, shortness of breath or other further concerns. Otherwise please continue to take your normally prescribed medications and follow-up with primary care provider for reassessment and ordering a outpatient heart monitor as needed. Also it was noted that your blood pressure was elevated. Please continue to take your hypertension medication and follow-up with your primary care provider to further discuss medication changes as needed Referrals: Erin Velez NP [Primary Care Provider] - 2 days Medical Decision Making Patient presenting to the emergency department for chief complaint of palpitations. Patient reports this morning she began having palpitations that have lasted throughout the day. She had some slight lightheadedness but denies all other symptoms. Patient has significant past medical history of SVT with ablations, prediabetes, hypertension, ADHD. Physical exam is unremarkable and shows no obvious findings and patient shows no signs of acute distress. We will perform EKG and labs. Pending results will give IV fluids. Please see physician interpretation for full interpretation of EKG but upon my review patient has some PACs, otherwise sinus rhythm with a prolonged QTc noted. Reviewed patient's labs and CBC is unremarkable, CMP does show low potassium at 3.1 which we will orally replete, BUN slightly elevated at 21 otherwise labs are nondiagnostic. Troponin is negative and nondetected, TSH is 2.96. Reassessed patient and she is continuing to feel about the same after fluid completion. While discussing patient she did have some noted QTc below 500 but would intermittently rise above. Given that patient is not having syncope or any other concerning findings I do feel that she can monitor symptoms at home and return for any new or worsening symptoms otherwise we will place patient on a urgent referral to primary care for ordering a outpatient Holter monitor or Zio patch for further investigation of her palpitations. After discussion of diagnosis and plan of care patient has no further needs, questions, or concerns and states clear understanding to return to the emergency department for any worsening symptoms. It was noted that patient had hypertension in the emergency department. Given that patient has no chest pain headache or endorgan damage I do not feel that further investigation is needed but will have patient follow-up with primary care provider for any medication changes as needed. This was discussed with patient This documentation was generated using [employer] dictation system, please disregard any oddities of phrase or misspellings. Lab Data Lab results reviewed: Yes I reviewed the patient's lab results. HPI General Mode of arrival: ambulatory . Date/Time Provider Initiated Documentation: 06/07/23 16:16 . Limitations to Documentation: no limitations . Information obtained by: patient and RN notes reviewed . History of Present Illness 53 year old F presents to the emergency department with the chief complaint of Palpitations, described as mild, Patient started experiencing this hour(s) (10) and it has been constant. No relieving factors improve symptom(s), No exacerbating factors reported . Patient did receive the following treatments prior to arrival, none Related Data Home Medications Medication Instructions Recorded Confirmed omeprazole 20 mg capsule,delayed 20 mg PO DAILY 12/12/20 06/07/23 release cetirizine 10 mg tablet (Zyrtec) 10 mg PO DAILY #90 tab-caps 08/06/21 06/07/23 chlorthalidone 25 mg tablet 25 mg PO DAILY #90 tabs 07/14/22 06/07/23 potassium chloride 20 mEq 20 meq PO DAILY #90 tabs 09/28/22 06/07/23 tablet,extended release atorvastatin 40 mg tablet 40 mg PO DAILY #90 tab-caps 03/24/23 06/07/23 dextroamphetamine-amphetamine 20 20 mg PO DAILY #28 tabs 03/24/23 04/30/23 mg tablet losartan 100 mg tablet 100 mg PO DAILY #90 tabs 04/30/23 06/07/23 semaglutide (weight loss) 0.25 0.25 mg (0.5 mL) subcut QWEEK #2 mL 04/30/23 04/30/23 mg/0.5 mL subcutaneous pen injector dextroamphetamine-amphetamine ER 40 mg PO DAILY #56 caps 05/17/23 06/07/23 20 mg 24hr capsule,extend release Previous Rx's Medication Instructions Recorded cetirizine 10 mg tablet (Zyrtec) 10 mg PO DAILY #90 tab-caps 08/06/21 chlorthalidone 25 mg tablet 25 mg PO DAILY #90 tabs 07/14/22 potassium chloride 20 mEq 20 meq PO DAILY #90 tabs 09/28/22 tablet,extended release atorvastatin 40 mg tablet 40 mg PO DAILY #90 tab-caps 03/24/23 dextroamphetamine-amphetamine 20 20 mg PO DAILY #28 tabs 03/24/23 mg tablet losartan 100 mg tablet 100 mg PO DAILY #90 tabs 04/30/23 semaglutide (weight loss) 0.25 0.25 mg (0.5 mL) subcut QWEEK #2 mL 04/30/23 mg/0.5 mL subcutaneous pen injector dextroamphetamine-amphetamine ER 40 mg PO DAILY #56 caps 05/17/23 20 mg 24hr capsule,extend release Allergies Allergy/AdvReac Type Severity Reaction Status Date / Time No Known Allergies Allergy Verified 06/07/23 16:14 General Stated Complaint: Palpitatns DARSHAN: 3 Review of Systems Constitutional Constitutional: Denies chills, Denies fever(s) and Denies malaise Cardiovascular Cardiovascular: Reports as per HPI, Denies chest pain, Denies chest pain with activity, Denies syncope, Reports lightheadedness, Reports palpitations and Denies dyspnea Respiratory Respiratory: Denies cough, Denies hemoptysis and Denies dyspnea Gastrointestinal Gastrointestinal: Denies abdominal pain, Denies nausea and Denies vomiting Neurologic Neurologic: Denies syncope Psychiatric Psychiatric: Denies anxiety Endocrine Endocrine: Denies cold intolerance, Denies heat intolerance and Reports palpitations PFS All Active Problems (Updated 06/07/23 @ 19:10 by Juan Antonio Fernandez NP) Palpitation (Acute) ADHD (attention deficit hyperactivity disorder) (Chronic) Essential hypertension (Chronic) Hyperlipidemia (Chronic) Prediabetes (Chronic) Tricuspid valve regurgitation (Chronic) GERD (gastroesophageal reflux disease) (Chronic) Gastritis (Chronic) Chronic cough (Chronic) Cxray 11/2020 benign Obesity (Chronic) Medical History Abnormal uterine bleeding Diastolic dysfunction Major depressive disorder Supraventricular tachycardia s/p ablation in 2003 (aortic perforation during procedure) and 2011 (successful) Tubular adenoma of colon On colonoscopy in 2019 Surgical History History of appendectomy History of cholecystectomy History of esophagogastroduodenoscopy (EGD) (06/07/20) History of incisional hernia repair (08/29/19) History of radiofrequency ablation procedure for cardiac arrhythmia (09/28/11) For SVT S/P colonoscopy (06/07/20) S/P laparoscopic assisted vaginal hysterectomy (LAVH) (03/11/17) For AUB S/P medial meniscus repair of left knee (03/09/23) S/P right knee arthroscopy (03/07/19) Partial medial meniscectomy, Medial chondroplasty S/P trigger finger release (08/12/16) Right thumb Family History Mother , 71 from colon cancer Diabetes Heart disease Hyperlipidemia Myocardial infarction Colon cancer Hypertension Father , 73 Diabetes Alcohol abuse Heart disease Hyperlipidemia Myocardial infarction COPD (chronic obstructive pulmonary disease) Lung cancer Throat cancer Hypertension Sister Depression Stroke Brother Diabetes Heart disease Myocardial infarction Hypertension Brother Heart disease Myocardial infarction Diabetes Brother Myocardial infarction Heart disease Brother , at 29 from snow machine accident Alcohol abuse Depression Son No problems noted. Son No problems noted. Maternal Grandfather No problems noted. Maternal Grandmother Uterine cancer Paternal Grandfather Heart disease Paternal Grandmother Myocardial infarction Heart disease Social History Smoking/Tobacco Use Status: Never Second Hand Exposure: Yes Smoking risk assessment performed?: Yes Alcohol Intake: current Alcohol Intake frequency: a few times a month Alcohol type: wine Drug use: Never Substance use type: does not use Household members: spouse and foster family Communication Needs: None Do you need help understanding health information?: Rarely current occupation: [employer] OPERATOR Pets and animals: Yes Pets and animals: cat(s) and dog(s) Sexually active: Yes Do you think of yourself as: straight/heterosexual Current gender identity: female What is your relationship status?: How often do you talk on the phone with friends or family?: twice per week How often do you get together with friends or relatives?: once per week Do you belong to any clubs or organized social groups?: no Panel score (0-1 are the most socially isolated patients): 2 What type of physical activity do you participate in: none Deepika/Synagogue: Rastafari Seatbelt use: always Drive intox or ride w/intox diesel truck driver: No Do you feel safe at home: Yes Do you feel safe in your relationship?: Yes History History 2 Para 2 Hx # Term Pregnancies Multiple births Hx # Pregnancies Ectopic pregnancies AB induced Hx Number of Living Children 2 AB spontaneous Exam Const General: cooperative, healthy appearing, comfortable, no acute distress, not diaphoretic and not ill appearing Nutritional Appearance: average body habitus Orientation: alert, awake and oriented x3 Limitations: mental status not altered Neck Neck: normal visual inspection, full ROM, trachea midline, supple and no anterior neck swelling Carotids: normal carotid upstroke and no bruits Chest Chest: normal inspection of the chest Resp Effort & Inspection: normal respiratory effort and able to speak in complete sentences Auscultation: clear to auscultation bilaterally Cardio Jugular venous pressure: no JVD Palpation: normal PMI Rate: regular rate Rhythm: regular rhythm Heart Sounds: S1 normal, S2 normal, no click, no gallops, no murmurs and no rubs Bruits: no abdominal aortic bruits and no carotid bruits Pulses: radial pulses present bilaterally 2+ Skin General skin exam: no rashes or lesions noted Neuro General: patient alert, patient awake, patient oriented x3, tone normal and moves all extremities Course Vital Signs Vital signs: Vital Signs Temperature 36.2 C L 06/07/23 16:10 Pulse 101 H 06/07/23 16:10 Respiratory Rate 20 06/07/23 16:10 Blood Pressure 151/104 H 06/07/23 16:10 Pulse Oximetry 100 06/07/23 16:10 Temperature 36.2 C L 06/07/23 16:10 Temperature Source Skin 06/07/23 16:10 Pulse 101 H 06/07/23 16:10 Pulse 75 06/07/23 17:30 Respiratory Rate 11 L 06/07/23 17:30 Respiratory Effort Normal 06/07/23 17:36 Blood Pressure 151/104 H 06/07/23 16:10 Blood Pressure Position Sitting 06/07/23 16:10 Pulse Oximetry 100 06/07/23 17:30 Oxygen Delivery Method Room Air 06/07/23 16:10 Oxygen Flow Rate 0 06/07/23 16:10 Pain Level 0 06/07/23 16:10 Lab/Test Results Lab/Test Results: Laboratory Tests Range/Units 06/07/23 06/07/23 17:05 17:05 WBC (4.4-10.8) 10^3/uL 5.66 RBC (3.93-5.22) 10^6/uL 4.49 Hgb (11.2-15.7) g/dL 13.7 Hct (36.0-46.0) % 39.5 MCV (80-95) fL 88 MCH (27.0-33.0) pg 30.5 MCHC (32.0-36.0) % 34.7 RDW (11.7-14.6) % 12.8 Plt Count (130-400) 10^3/uL 243 MPV (8.0-11.0) fL 9.3 Immature Gran % 0.2 Neutrophils % 56.0 Lymphocytes % 28.6 Monocytes % 9.9 Eosinophils % 4.2 Basophils % 1.1 Nucleated RBC % (0.0-0.3) % 0.0 Absolute Neutrophils (1.2-6.7) 10^3/uL 3.17 Absolute Lymphocytes (1.2-3.4) 10^3/uL 1.62 Absolute Monocytes (0.1-0.8) 10^3/uL 0.56 Absolute Eosinophils (0.0-0.7) 10^3/uL 0.24 Absolute Basophils (0.0-0.2) 10^3/uL 0.06 Sodium (136-145) mmol/L 139 Potassium (3.5-5.1) mmol/L 3.1 L Chloride (98-107) mmol/L 101 Carbon Dioxide (21.0-32.0) mmol/L 28.9 Anion Gap (3-11) mmol/L 9.1 BUN (7-18) mg/dL 21 H Creatinine (0.55-1.02) mg/dL 1.0 Est GFR (CKD-EPI 2020) (mL/min/1.73m2) 67.36 Glucose (74-106) mg/dL 116 H Calcium (8.5-10.1) mg/dL 9.7 Magnesium (1.8-2.4) mg/dL 1.9 Total Bilirubin (0.2-1.0) mg/dL 0.4 AST (15-37) U/L 13 L ALT (14-59) U/L 26 Alkaline Phosphatase (46-116) U/L 119 H Troponin I (<or=60) ng/L < 50 Total Protein (6.4-8.2) g/dL 7.6 Albumin (3.4-5.0) g/dL 4.0 TSH (0.36-3.74) uIU/mL 2.96
[2023-06-07] MEDS: Potassium Chloride 20 MEQ TABCR 40 MEQ PO (18:33)
--- NOTE | 2023-06-07 19:10 | NUR.NOTE ---
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
== END 2023-06-07 19:16 | disposition home or self-care (01) ==
PROVIDERS: Emergency Provider Nurse Practitioner Family; PCP Nurse Practitioner Family
DX: R00.2 Palpitations (principal); R42 Dizziness and giddiness; R94.31 Abnormal electrocardiogram [ECG] [EKG]; I49.1 Atrial premature depolarization; E87.6 Hypokalemia; I10 Essential (primary) hypertension; E78.5 Hyperlipidemia, unspecified; Z79.899 Other long term (current) drug therapy
CPT/HCPCS: 80053; 93005; 99283; 83735; 84443; 84484; 85025; 93010

== ENCOUNTER 2023-07-06 02:27 | Outpatient (CLI) | payer OTHER, SELFPAY ==
[2023-07-06 08:32] LABS: Anion Gap 7.4 mmol/L (3-11); BUN 16 mg/dL (7-18); CO2 30.6 mmol/L (21.0-32.0); CREATININE 0.9 mg/dL (0.55-1.02); Calcium 9.5 mg/dL (8.5-10.1); Calculated LDL 149 mg/dL (<100); Chloride 102 mmol/L (98-107); Cholesterol 245 mg/dL (<200); Estimated GFR 76.44 (mL/min/1.73m2); Glucose 127 mg/dL (74-106); HDL Cholesterol 65 mg/dL (40-60); Potassium 3.5 mmol/L (3.5-5.1); Sodium 140 mmol/L (136-145); Triglyceride 158 mg/dL (<150)
== END 2023-07-06 02:28 | disposition home or self-care (01) ==
LOC: LBO 02:27
PROVIDERS: PCP Nurse Practitioner Family; Visit Provider Nurse Practitioner Family
DX: E78.5 Hyperlipidemia, unspecified (principal); R00.2 Palpitations
CPT/HCPCS: 36415; 80048; 80061

== ENCOUNTER 2023-07-27 08:23 | Outpatient (CLI) | payer OTHER, SELFPAY | END 2023-07-27 08:24 | disposition home or self-care (01) | PROVIDERS: PCP Nurse Practitioner Family; Visit Provider Nurse Practitioner Family | DX: I47.10 Supraventricular tachycardia, unspecified (principal); R00.2 Palpitations | CPT/HCPCS: 93246 ==

== ENCOUNTER → 2023-08-11 01:48 | Outpatient (CLI) | payer OTHER, SELFPAY ==
--- NOTE | 2023-08-11 07:45 | DI.MAMMO_ITS ---
Exam(s) MAMMO SCREENING EXAM: MAMMO SCREENING CLINICAL HISTORY: screening,z12.39 TECHNIQUE: Mammograms were interpreted according to the usual protocol including computer analysis w [employer] CAD system, tomosynthesis and C-view imaging. COMPARISON: 2014 through 2021 FINDINGS: The breasts are composed of mainly fatty density , Breast Density category A. No suspicious masses or suspicious microcalcifications are seen. No skin thickening or abnormal axillary lymph nodes are seen. There has been no significant change from prior exams. IMPRESSION: BI-RADS Category 1, Negative mammogram Yearly screening mammography is recommended. Breast Density - Category A, fatty density. A negative radiographic report should not delay biopsy if a dominant or clinically suspicious mass is present. Up to ten percent of cancers are not identified on mammography. A negative report may reinforce clinical impression. Adenosis and dense breasts may obscure an underlying neoplasm. False positive reports average 6 to 10%. Patient will receive a letter notifying them of these results.
== END ==
PROVIDERS: PCP Nurse Practitioner Family; Visit Provider Nurse Practitioner Family
DX: Z12.31 Encounter for screening mammogram for malignant neoplasm of breast (principal)
CPT/HCPCS: 77063; 77067

== ENCOUNTER 2023-08-19 08:26 | Outpatient (CLI) | payer OTHER, SELFPAY ==
--- NOTE | 2023-08-19 09:09 | W.CARDEVENT ---
Date of service: 08/19/23 Time of Service: 09:09 Cardiac Event Recorder Referring Provider:: Erin Velez Indications:: Palpitations Cardiac Event Note: This is a cardiac event monitor. Patient was monitored for 4 days and 21 hours Rhythm throughout was sinus. Average heart rate was 85. Minimum was 55, maximum 133 A total of 9 isolated ventricular ectopic beats were recorded there were very rare isolated atrial premature beats There were several self-limited atrial runs the longest of which was 9 beats in duration. There was no atrial fibrillation, no high-grade AV block, no pauses greater than 3 seconds Patient symptoms were reported which had no correlation to any dysrhythmia
== END 2023-08-19 08:27 | disposition home or self-care (01) ==
LOC: CARDOPNVT 08:26
PROVIDERS: PCP Nurse Practitioner Family; Visit Provider Internal Medicine Cardiovascular Disease
DX: R00.2 Palpitations (principal); I49.3 Ventricular premature depolarization; I49.1 Atrial premature depolarization

== ENCOUNTER 2024-08-11 02:43 | Outpatient (CLI) | payer OTHER, SELFPAY ==
[2024-08-11 13:44] LABS: Hemoglobin A1C 5.9 % (<5.7)
[2024-08-11 13:47] LABS: ALT 58 U/L (14-59); AST 32 U/L (15-37); Albumin 4.1 g/dL (3.4-5.0); Alkaline Phosphatase 154 U/L (46-116); Anion Gap 9.5 mmol/L (3-11); BUN 13 mg/dL (7-18); Bilirubin, Total 0.73 mg/dL (0.2-1.0); CO2 30.5 mmol/L (21.0-32.0); Calcium 9.7 mg/dL (8.5-10.1); Calculated LDL 139 mg/dL (<100); Chloride 100 mmol/L (98-107); Cholesterol 238 mg/dL (<200); Estimated GFR 66.95 (mL/min/1.73m2); Glucose 111 mg/dL (74-106); HDL Cholesterol 65 mg/dL (40-60); Potassium 3.1 mmol/L (3.5-5.1); Sodium 140 mmol/L (136-145); Total Protein 8.3 g/dL (6.4-8.2); Triglyceride 174 mg/dL (<150)
[2024-08-11 22:48] LABS: Hepatitis C Ab w Rflx HCV PCR Negative (Negative)
[2024-08-11 22:52] LABS: HBs Antibody, Quant <3.1 mIU/mL (See Note); Hep B Surface Ab Negative (See Note); Hepatitis B Core Antibody Negative (Negative); Hepatitis B Surface Antigen Negative (Negative)
[2024-08-11 23:08] LABS: HIV-1/2 Ag & Ab Screen Negative (Negative)
== END 2024-08-11 02:44 | disposition home or self-care (01) ==
LOC: LBO 02:43
PROVIDERS: PCP Nurse Practitioner Family; Visit Provider Nurse Practitioner Family
DX: I10 Essential (primary) hypertension (principal); R73.03 Prediabetes; E78.5 Hyperlipidemia, unspecified; Z11.59 Encounter for screening for other viral diseases; Z11.4 Encounter for screening for human immunodeficiency virus [HIV]
CPT/HCPCS: 36415; 80053; 80061; 86704; 86706; 86803; 87340; 87389; 83036

== ENCOUNTER 2024-08-16 00:53 | Outpatient (CLI) | payer OTHER, SELFPAY ==
--- NOTE | 2024-08-16 07:45 | DI.RAD_ITS ---
Exam(s) RF BARIUM SWALLOW EXAM: RF BARIUM SWALLOW CLINICAL HISTORY: hx of hiatal hernia, more abd bloating, hiatal hernia, GERD TECHNIQUE: 2D and realtime digital imaging was performed. CONTRAST MATERIAL: Oral barium contrast was administered. COMPARISON: No exams were available for comparison FINDINGS: CHEST X-RAY: The heart and pulmonary vasculature are within normal limits. The lungs are clear. No pl eural effusion or pneumothorax is present. The bones are within normal limits for the patient's age. Sternal wires are in place. ESOPHAGRAM: The esophagus is patent with no evidence for erosions, fold thickening, strictures, or ma sses. With regards to the motility, there is a normal primary stripping wave. No tertiary contraction s were noted. Note is made of a small hiatal hernia. No gastroesophageal reflux was noted during the examination. IMPRESSION: Findings of a small hiatal hernia. No gastroesophageal reflux was noted. RADIATION DOSE DELIVERED: arlin Hernandez=30.6 mGy
[2024-08-16] MEDS: Barium Sulfate 98% W/W 140 ML BTL PO (10:49)
[2024-08-16] MEDS: Barium Sulfate 60% W/V 355 ML BTL 250 ML PO (10:50)
[2024-08-16] MEDS: Simethicone/Sod Bicarb/Cit Ac, 4 gram PACKET 1 PACKET PO (10:50)
== END 2024-08-16 01:13 ==
LOC: DI 00:53
PROVIDERS: PCP Nurse Practitioner Family; Visit Provider Nurse Practitioner Family
DX: K44.9 Diaphragmatic hernia without obstruction or gangrene (principal); K21.9 Gastro-esophageal reflux disease without esophagitis
CPT/HCPCS: 74221; J3490

== ENCOUNTER 2024-09-01 11:25 | Outpatient (CLI) | payer OTHER, SELFPAY ==
--- OUTSIDE RECORDS SUMMARY | 2024-09-01 11:45 | XMS_ITS | Encounter Summary ---
Author Organization [facility] Address [address] [place] [address] Care Team Providers Care Nut Blanker Operator Name Role Phone Rubi Fernandez MD Primary Care Provider [phone] Encounter Details Date Type Department Care Team (Late st Contact Info) Description 09/28/2011 10:37 EST - 09/28/2011 17:00 EST Hospital Encounter [facility] [address] [place] [address] Lloyd Hernandes MD [address] [facility] [address] [place] [address] Discharge Disposition: Home or Self Care Social History Tobacco Use Types Packs/Day Years Used Date Smoking Tobacco: Never Alcohol Use Standard Drinks/Week Comments Yes 0 (1 standard drink = 0.6 oz pur e alcohol) 2 x month Comments Unknown Sex and Gender Information Value Date Recorded Sex Assigned at Not on file Legal Sex Female 18:12 EST Gender Identity Not on file Sexual Orientation Not on file documented as of this encounter Last Filed Vital Signs Vital Sign Reading Time Taken Comments Blood Pressure 97/67 09/28/2011 1600 EST Pulse - - Temperature 36.8 ??C (98.2 ??F) 09/28/2011 1428 EST Respiratory Rate 18 09/28/2011 1600 EST Oxygen Saturation 100% 09/28/2011 1600 EST Inhaled Oxygen Concentration - - Weight 86.2 kg (190 lb) 09/28/2011 1119 EST Height 170.2 cm (5' 7) 09/28/2011 1119 EST Body Mass Index 29.76 09/28/2011 1119 EST documented in this encounter Discharge Instructions * Discharge Instructions* Rachael Caba RN - 09/28/2011 15:58 EST [facility] Discharge Instructions for Non Anesthesia Ablation Patients 1. Wound Care - You may remove the Band-Aids/Dressings from the sites the next morning - You may shower the next day - No tub bathing for five days, including hot tubs and pools 2. Call your physician or nurse if: - You develop drainage, redness, or swelling at any of the sites - You develop a fever - You develop increased tenderness and/or increased bruising over sites which doesn't resolve in 2 days - You develop a persistent and/or productive cough - Your symptoms reoccur 3. Activity: - You can resume your normal activities in one week, unless you have been instructed otherwise. - If you are traveling by car or airplane in the next week, you will need to stand and move around every 2 hours to promote circulation. - No vigorous activity for one week after your ablation. This includes running, squatting and heavylifting (>l0 lbs). - You may resume driving after 24 hours. - You may return to work after 5 days if your work demands are not physical. If your job entails strenuous activity, a two week waiting period is recommended. 4. Medications: - Resume prior medications unless otherwise instructed. If you have any questions or concerns, please don't hesitate to call [facility] [place] [phone], or dial direct and leave a message for Courtney Abdalla RN and she will return your call as soon as possible. * Attachments The following attachments cannot be sent through Care Everywhere. * ELECTROPHYSIOLOGY STUDY AND CATHETER ABLATION: WHAT TO EXPECT AT HOME (SERBIAN) documented in this encounter Medications at Time of Discharge furosemide (LASIX) 40 mg tablet Take 40 mg by mouth daily. POTASSIUM ORAL Take 20 mg by mouth daily. documented as of this encounter Discharge Disposition Disposition Code Departure Means Destination Home or Self Care documented in this encounter Progress Notes * Rachael Caba RN - 09/28/2011 1511 EST At 1423 pt admitted to CVU per stretcher from EP lab status post ablation. Bed in lowest position. Side rails up. Call feldman within reach. Mayuri PO food & liquids. Right groin dressing was saturatedon arrival. Dressing changed and pressure held by EP nurse.12 lead EKG done on arrival. Pt given drinks and a sandwich. Pt denies pain 1530 Quarter size stain on dressing and this was changed. 1615 Dr. Hernandes here to see pt Per Dr. Hernandes may get up at 1630 and leave around 1700 1630 Pt OOB slowly and dressing is CDI. Pt up and walked to the BR with assist 1645 AVS copy given to pt and family. Signed AVS copy placed in the chart 1655 Dressing with small spot/shadow noted. Dressing removed and new dressing replaced * Michelle Jackson RN - 09/28/2011 1151 EST Silvia Shirley arrived to the Cardiovascular Unit via ambulatory. Patient identified per [facility] policy and oriented to Unit. Reviewed pre-procedure instructions with Silvia Shirley. Discussed history, med list, Allergies, NPO, Sedation,& Procedure information. All questions answered & patient verbalizes understanding. Pre-SVT ablation prep completed per protocol. Stretcher in low position with side rails up & call feldman within patient reach. All questions answered. Patient's family is at bedside. 1150 Patient off to procedure via stretcher with transport & family.Patient states she hadepisode of SVT yesterday but not today. documented in this encounter H&P Notes * Lloyd Hernandes MD - 09/28/2011 1201 EST Date of Service: 09/28/2011 Subjective: Chief Complaint: svt Patient is a 41 y.o. female scheduled for svt ablation. Indications for procedure are symptomatic svt, see note below. Has left sided ap, with hx of ra and aortic perforation at [facility] in 2003. Here for repeat attempt atablation. Did not tolerate cardizem, felt poor. Silvia Shirley is a pleasant 41-year-old woman with a long history of supraventricular tachycardia. She underwent attempted catheter ablation at [facility] in 2003. Unfortunately, the procedure resulted in perforation of the aorta and open chest repair. Silvia continues to have difficulty with supraventricular tachycardia and has not been well suppressed with oral atenolol. She has never been tried on a long-acting calcium channel mal. Understandably, she has been somewhat reluctant to come back to the EP lab for another attempt at catheter ablation. I do not have any of the records from [facility] to know if the aortic perforation was secondary to a retrograde aortic approach to an accessory pathway or from an attempt at transseptal puncture. In any event, she continues to have more difficulty with supraventricular tachycardia and this has been negatively impacting her quality of life. She has not had syncope or presyncope but notices the palpitations. The SVT hasbeen sensitive to adenosine in the past. She otherwise has no complaints and is known to have normal heart function by echo. PMH: SVT S/p attempted ablation at [facility], S/p cardiac / aortic perforation and open chest repair gerd Soc: no cigs, occ etoh, lives in [place] All: nkda Social History Substance Use Topics ??? Smoking status: Not on file ??? Smokeless tobacco: Not on file ??? Alcohol Use: Not on file Current Outpatient Prescriptions on File Prior to Visit Medication Sig Dispense Refill ??? furosemide (LASIX) 40 mg tablet Take 40 mg by mouth daily. No Known Allergies There are no active problems to display for this patient. Past Medical History Diagnosis Date ??? SVT (supraventricular tachycardia) ??? Hypertension ??? Blood transfusion 2004 ??? CHF (congestive heart failure) 2006 was told CHF Past Surgical History Procedure Date ??? Cholecystectomy ??? Appendectomy ??? Aorta surgery 2003 repair post ablation tear in [place] Prescriptions prior to admission Medication Sig Dispense Refill ??? POTASSIUM ORAL Take 20 mg by mouth daily. ??? DISCONTD: DILTiazem (CARDIZEM CD) 180 mg ER capsule Take 1 Cap by mouth daily. 30 Cap 5 ??? furosemide (LASIX) 40 mg tablet Take 40 mg by mouth daily. Allergies Allergen Reactions ??? Diltiazem Other (See Comments) [place] weak-pulse very slow ??? No Known Drug Allergies History Substance Use Topics ??? Smoking status: Never Smoker ??? Smokeless tobacco: Not on file ??? Alcohol Use: Yes 2 x month History reviewed. No pertinent family history. Review of Systems Pertinent items are noted in Subjective/HPI Objective: VS: Patient Vitals for the past 8 hrs: BP Temp Temp src Resp SpO2 Height Weight 09/28/11 1119 127/79 mmHg 36.7 ??C (98.1 ??F) Temporal 22 100 % 170.2 cm (67) 86.183 kg (190 lb) Exam: General appearance: alert, cooperative Lungs: clear to auscultation bilaterally Heart: regular rate and rhythm, S1, S2 normal, no murmur, click, rub or gallop Abdomen: soft, non-tender; bowel sounds normal; no masses, no organomegaly Mental Status: awake and alert; oriented to person, place, and time Pulses: 2+ and symmetric ECG: otherwise WNL. Data Review CBC: Lab Results Component Value Date WBC 3.93* 09/28/2011 RBC 3.92 09/28/2011 HGB 12.4 09/28/2011 HCT 35.7 09/28/2011 MCV 91 09/28/2011 MCH 31.6 09/28/2011 MCHC 34.7 09/28/2011 PLT 238 09/28/2011 BMP: No results found for this basename: NA, K, CL, CO2, BUN, Creatinine, GLUCOSEFINGE, Calcium, MG, PHOS, LABALBU Coagulation: No results found for this basename: PROTIME, INR, PTT Assessment: Svt, probable ort with left sided ap Plan: Ep study +/- ablation svt Date of Surgery Update There have been no significant clinical changes since the completion of the above H&P. Lloyd Hernandes MD 09/28/2011 12:01 documented in this encounter Procedure Notes * [employer] Tuber Machine Operator, Scan - 10/05/2011 0751 ESTAssociated Order(s): ECG REPORT - SCANNED * [employer] Tuber Machine Operator, Scan - 10/01/2011 1741 ESTAssociated Order(s): CARDIAC CATHERIZATION REPORT - SCANNED * Lloyd Hernandes MD - 09/28/2011 1532 EST Cardiac Arrhythmia Service Tonny Brody M.D. Kendell Castillo M.D. Nigel Lee M.D., Ph.D. Lloyd Hernandes M.D. Prisca Alonso N.P. 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 She had EPstudy at [facility] several years ago, demonstrating a Left sided AP and SVT. The procedure was complicated by tamponade, and no ablation was performed. She is now re-referred for EP study and possible catheter ablation. Anesthesia: Conscious sedation & topical anesthetic Procedure: The patient was brought to the Cardiac Electrophysiology Lab - [place] [address] in the fasting state. After informed consent was obtained, the patient was prepped and draped in the usual sterile fashion. Access was obtained using a modified Seldinger technique. All catheters were placed under fluoroscopicguidance. The Attending physician was present for the entire procedure. Pacing and recording were carried out from: the right atrium the his bundle the coronary sinus the right ventricle Catheters: RAA: #6 Fr hexapolar electrode catheter (2 mm spacing; proximal ring 25 cm from tip) RV/Para-Hisian: #7 Fr deflectable quadrapolar electrode catheter (2mm spacing) His: #7 Fr deflectable octapolar electrode catheter (2 mm spacing) CS: #7 Fr deflectable electrode catheter 20 electrodes (1 mm-5mm-1mm spacing) Ablation: #7 Fr deflectable Bi-directional Irrigated tip catheter, 3.5 mm spacing. Findings: Baseline Rhythm: Sinus Rhythm Cycle length: 870 ms AH interval: 155 ms HV interval: 35 ms Electrophysiology Study: At baseline, the patient was in Sinus Rhythm without evidence of pre-excitation. Pacing from the right atrial appendage demonstrated 1:1 antegrade conduction over the AV node fast pathway to 360 ms at which point Wenckebach was noted. There was not a discrete jump to the AV node slow pathway. Pacing from the distal coronary sinus catheter revealed no pre-excitation. Pacing from the right ventricle demonstrated 1:1 retrograde conduction over a left sided accessory pathway, to 320 ms. Tachycardiawas easily induced with catheter manipulation and pacing from the RA, as well as from the RV. LA pacing did not demonstrate any pre-excitation The tachycardia cycle length was 410 ms. AH 270ms HV 40ms VA 95 ms Mapping of the SVT was performed . Atrial activation was eccentric, with the earliest site at the distal CS electrode, 3 O???clock position on the mitral annulus as viewed in the PALEST[place]IAN projection. The retrograde activation sequences during SVT and during ventricular entrainment from the RV anterior wall were identical. His-synchronous PVC???s were introduced during tachycardia. The PVC???s advanced the timing of atrial activation, with identical activation sequence. 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 Ablation Procedure: A transseptal puncture was performed. An SL#1 sheath and dilator were placed in the SVC over an 0.32 wire under fluoroscopic guidance. A BRK1 needle was the positioned 2mm proximal to the tip of the dilator and flushed. The needle/sheath/dilator were then positioned in the fossa ovalis under fluoros copic, ultrasound, and pressure guidance. The needle was advanced into the left atrium. The dilatorwas advanced over the needle and the sheath advanced over the wire. The needle and dilator were then removed and the sheath was flushed. Heparin bolus and infusion were begun to keep the ACT > 300seconds. Right atrial Systolic Pressure (mmHg): 11 Right atrial Diastolic Pressure (mmHg): 5 Right atrial mean Pressure (mmHg): 7 Left atrial Systolic Pressure (mmHg): 28 Left atrial Diastolic Pressure (mmHg): 4 Left atrial mean Pressure (mmHg): 12 A 3.5mm tip Celsius ThermoCool bi-directional ablation catheter was inserted and advanced into the left atrium. Mapping of the -lateral mitral annulus was performed during SVT. The site of earliest atrial activation was mapped and RF energy was applied (power limited to 35 vargas max, temperature limited to 42 ?? Celsius). 30 sec into the energy application, retrograde block was noted in the pathway. There was no VA conduction following block of the AP. RF continued for 2.5 minutes. Subsequently, SVT could not be reinduced with either burst pacing or extrastimuli. The patient was monitored for40 minutes. There was no VA conduction. No further SVT was noted. At the end of the procedure the rhythm was sinus. There were no changes of the baseline intervals. Pacing from the right atrial appendage demonstrated 1:1 antegrade conduction over the AV node fast pathway to 330 msec with a gradual prolongation of the AH interval and Wenckebach at 320 msec. Pacingfrom the right ventricle demonstrated VA block. The sinus cycle length was 970ms, AH interval 150 ms, and HV interval 40 ms. At the conclusion of the procedure, protamine was given to reverse the heparin anticoagulation. Thecatheters were removed, the sheaths were pulled, and hemostasis was achieved with manual compression. No complications were noted. Summary: 1. Orthodromic reentrant tachycardia 2. Successful ablation of the left lateral concealed accessory pathway 3. No inducible SVT post ablation 4. No VA conduction post ablation. 5. No complications Lloyd Hernandes MD Attending Physician cc. Rubi Fernandez MD documented in this encounter Miscellaneous Notes * Scanned Note-Null - [employer] Tuber Machine Operator, Scan - 10/01/2011 1741 EST * Scanned Note-Null - [employer] Tuber Machine Operator, Scan - 10/01/2011 1741 EST * Scanned Note-Null - [employer] Tuber Machine Operator, Scan - 10/01/2011 1741 EST * Scanned Note-Null - [employer] Tuber Machine Operator, Scan - 09/28/2011 1040 EST * Scanned Note-Null - [employer] Tuber Machine Operator, Scan - 09/28/2011 1040 EST documented in this encounter Plan of Treatment Pending Results Name Type Priority Associated Diagnoses Date /Time ACT, CELITE ISTAT Point of Care Testing Routine 09/28/2011 13:47 EST documented as of this encounter Procedures Procedure Name Priority Date/Time Associated Diagnosis Comments ECG REPORT - SCANNED 10/05/2011 7:51 EST INVASIVE CARDIOLOGY REPORT-SCANNED 10/01/2011 17:41 EST EKG 12-LEAD Routine 09/28/2011 14:17 EST ACT, CELITE ISTAT Routine 09/28/2011 13: 47 EST PTT STAT 09/28/2011 11:30 EST PROTIME STAT 09/28/2011 11:30 EST COMPLETE BLOOD COUNT STAT 09/28/2011 11:30 EST QUANT BETA HCG, STAT 09/28/2011 11:30 EST BUN STAT 09/28/2011 11:30 EST CREATININE STAT 09/28/2011 11:30 EST ELECTROLYTES STAT 09/28/2011 11:30 EST TEST, URINE STAT 09/28/2011 11:05 EST documented in this encounter Results * ECG REPORT - SCANNED (10/05/2011 7:51 EST) 10/05/2011 7:51 EST Narrative Transcriptions [employer] Tuber Machine Operator, Scan - 10/05/2011 7:51 EST us Scan [employer] Tuber Machine Operator PROCEDURE/MINOR SURGICAL ORDE RABLES Final Result * CARDIAC CATHERIZATION REPORT - SCANNED (10/01/2011 17:41 EST) 10/01/2011 17:4 1 EST Narrative Transcriptions [employer] Tuber Machine Operator, Scan - 10/01/2011 17:41 EST us Scan [employer] Tuber Machine Operator PROCEDURE/MINOR SURGICAL ORDE RABLES Final Result * ACT, CELITE ISTAT (09/28/2011 13:47 EST) Activated Clotting Time [address] [facility] residential designer [place] [id number] [facility] Comment: Test performed by Cardiology. Baseline ref range for ACT = 84 to 139 seconds For non baseline ref ranges see procedure. 09/28/2011 13:4 7 EST 09/28/2011 14:14 EST us Lloyd Hernandes MD POINT OF CARE TEST ORDER UVALDO Final Result [facility] [address] [place] [address] * HCG (09/28/2011 11:30 EST) Quant Beta HCG, Preg <5 <5 mIU/ml [facility] Comment: Reference Range: Negative = <5 Indeterminate = 5-25 recommend repeat in 48 hours. Positive = >25 Note new reference range. Note new assay 07/28/11 Blood specimen (specimen) 09/28/2011 11:30 EST 09/28/2011 11:38 EST us Lloyd Hernandes MD CHEMISTRY & BLOOD GAS OR DERABLES Final Result Performing Organization Address [facility] Co de Phone Number [facility] [address] [place] [address] * (ABNORMAL) HEMAGRAM (09/28/2011 11:30 EST) [facility] WBC 3.93(L) 4.0 - 12.4 K/cmm [facility] RBC 3.92 3.86 - 5.04 M/cmm [facility] Hemoglobin 12.4 11.6 - 15.2 gm/dl [facility] HCT 35.7 34.9 - 44.4 % [facility] MCV 91 81 - 98 fl [facility] MCH 31.6 26.7 - 33.3 pg [facility] MCHC 34.7 32.1 - 35.9 gm/dl [facility] PLT 238 141 - 320 K/cmm [facility] RDW-CV 13.2 11.7 - 14.6 % [facility] Blood specimen (specimen) 09/28/2011 11:30 EST 09/28/2011 11:38 EST us Lloyd Hernandes MD HEMATOLOGY & PF4 ORDERAB LES Final Result Performing Organization Address [facility] de Phone Number [facility] [address] [place] [address] * PTT (09/28/2011 11:30 EST) [facility] PTT 28 24 - 35 secs [facility] Comment:Therapeutic Heparin range: 60-90 seconds Blood specimen (specimen) 09/28/2011 11:30 EST 09/28/2011 11:38 EST us Lloyd Hernandes MD HEMATOLOGY & PF4 ORDERAB LES Final Result Performing Organization Address [facility] de Phone Number [facility] [address] [place] [address] * PROTIME (09/28/2011 11:30 EST) Pro Time 10.3 9.5 - 13.1 secs [facility] I.N.R. 0.9 0.9 - 1.1 Ratio [facility] Comment: Moderate Intensity Coumadin INR = 2.0-3.0 Adjustments in anticoagulant therapy dose should be based upon the INR and NOT the Pro Time. Blood specimen (specimen) 09/28/2011 11:30 EST 09/28/2011 11:38 EST us Lloyd Hernandes MD HEMATOLOGY & PF4 ORDERAB LES Final Result Performing Organization Address [facility] de Phone Number [facility] [address] [place] [id number] * CREATININE (09/28/2011 11:30 EST) Creatinine 0.90 0.7 - 1.5 mg/dl [facility] GFR, Calculated >60 >60 ml/min/1.7 3m2 [facility] Blood specimen (specimen) 09/28/2011 11:30 EST 09/28/2011 11:38 EST us Lloyd Hernandes MD CHEMISTRY & BLOOD GAS OR DERABLES Final Result Performing Organization Address [facility] de Phone Number [facility] [address] [place] [address] * BUN (09/28/2011 11:30 EST) BUN 13 10 - 26 mg/dl [facility] Blood specimen (specimen) 09/28/2011 11:30 EST 09/28/2011 11:38 EST us Lloyd Hernandes MD CHEMISTRY & BLOOD GAS OR DERABLES Final Result Performing Organization Address [facility] Phone Number [facility] [address] [place] [address] * ELECTROLYTES (09/28/2011 11:30 EST) Pathologist [facility] Sodium 141 136 - 145 mEq/L [facility] Potassium 4.1 3.5 - 5.0 mEq/L [facility] Chloride 105 96 - 110 mEq/L [facility] CO2 30 24 - 32 mEq/L [facility] Blood specimen (specimen) 09/28/2011 11:30 EST 09/28/2011 11:38 EST Lloyd Hernandes MD CHEMISTRY & BLOOD GAS OR DERABLES Final Result Performing Organization Address [facility] Phone Number [facility] [address] [place] [address] * TEST, URINE (09/28/2011 11:05 EST) Pathologist [facility] Result- Test, Ur Negative [facility] Comment: NOTE: False negative results may occur in women who are beyond 5-8 weeks gestation. Diagnosis of should be based on a correlation of test results with typical clinical signs and symptoms. Urine specimen (specimen) 09/28/2011 11:05 EST 09/28/2011 11:11 EST Lloyd Hernandes MD URINALYSIS ORDERABLES Fi nal Result Performing Organization Address [facility] Phone Number [facility] [address] [address] documented in this encounter Visit Diagnoses Not on filedocumented in this encounter Administered Medications Inactive Administered Medications - up to 3 most recent administrations Medication Order MAR Action Action Date Dose Rate Site acetaminophen (TYLENOL) tablet 650 mg 650 mg, oral, EVERY 4 HOURS PRN, Starting on Wed09/28/11 at 1417, Until Wed09/28/11 at 1910, Pain, Routine, Postprocedure Given 09/28/2011 16:51 EST 650 mg sodium chloride 0.9 % (NS) infusion 30 mL/hr, intravenous, CONTINUOUS, Starting on Wed09/28/11 at 1130, Until 09/28/11 at 1910, Routine, Preprocedure Rate Documented 09/28/2011 14:45 EST 30 mL/hr 30 mL/hr New Bag 09/28/2011 11:36 EST 30 mL/hr 30 mL/hr documented in this encounter Discontinued Medications Medication Sig Discontinue Reason Start Date End Da te DILTiazem (CARDIZEM CD) 180 mg ER capsule Take 1 Cap by mouth daily. Patient Stopped Taking 08/07/2011 09/28/2011 documented as of this encounter Active and Recently Administered Medications Times are shown in EST. Continuous Medication Order 09/26/2011 09/27/2011 09/28/2011 sodium chloride 0.9 % (NS) infusion (CANCELED) 30 mL/hr, intravenous, CONTINUOUS, Starting on Wed09/28/11 at 1130, Until Wed09/28/11 at 1910, Routine, Preprocedure 1136 (New Bag - Prov ider: Michelle Jackson RN)1445 (Rate Documented - Provider: Rachael Caba RN) PRN Medication Order 09/26/2011 09/27/2011 09/28/2011 acetaminophen (TYLENOL) tablet 650 mg (CANCELED) 650 mg, oral, EVERY 4 HOURS PRN, Starting on Wed09/28/11 at 1417, Until Wed09/28/11 at 1910, Pain, Routine, Postprocedure 1651 (Given - Provid er: Rachael Caba RN) documented in this encounter Orders Medications Ordered That Kailash ht Not Have Been Administered Count Last Ordered Date First Ordered Date fentanyl citrate (PF) 50 mcg/mL injection 1 09/28/2011 heparin 1,000 unit/mL injection 1 2 heparin in D5W 25,000 unit/250 mL infusion 1 09/28/2011 isoproterenol (ISUPREL) 0.2 mg/mL injection 1 09/28/2011 lidocaine 10 mg/mL (1 %) injection 1 2011 midazolam (VERSED) 1 mg/mL injection 2 05/2012 oxycodone-acetaminophen (PER COCET) 5-325 mg per tablet 1-2 Tab 1 09/28/2011 protamine 10 mg/mL injection 1 09/28/2011 Lab Orders Without Results Count Last Ordered D ate First Ordered Date POCT GLUCOSE 1 09/28/2011 EKG Orders Without Results Count Last Ordered D ate First Ordered Date EKG 12-LEAD 1 09/28/2011 Nursing Count Last Ordered Date First Orde red Date BEDREST 1 09/28/2011 CARDIAC MONITORING 1 09/28/2011 CHANGE IV TO SALINE LOCK 1 09/28/2011 INSERT PERIPHERAL IV 1 09/28/2011 Admission Count Last Ordered Date First Orde red Date ADMIT TO OUTPATIENT 1 09/28/2011 ADMITTING CONDITION 1 09/28/2011 NON-TEACHING SERVICE 1 09/28/2011 NOTIFY PPS OF DISCHARGE COMPLETE 1 09/28/19 12 Discharge Count Last Ordered Date First Orde red Date DISCHARGE PATIENT 2 09/28/2011 documented in this encounter Care Teams Nut Blanker Operator Relationship Specialty Start Date End Date Rubi Fernandez MD [address] [place] [address] PCP - General 04/16/09 06/06/20 documented as of this encounter
--- OUTSIDE RECORDS SUMMARY | 2024-09-01 11:45 | XMS_ITS | Encounter Summary ---
Author Organization [facility] Address [address] [place] [address] Care Team Providers Care Motor Patrol Operator Name Role Phone Rubi Fernandez MD Primary Care Provider [phone] Encounter Details Date Type Department Care Team (Late st Contact Info) Description 08/21/2009 Abstract [facility] Bariatric Surgery [facility] [address] [place] [address] Rubi Fernandez MD [address] [place] [address] [address] [place] [address] Social History Tobacco Use Types Packs/Day Years Used Date Smoking Tobacco: Never Assessed Comments Unknown Sex and Gender Information Value Date Recorded Sex Assigned at Not on file Legal Sex Female 18:12 EST Gender Identity Not on file Sexual Orientation Not on file documented as of this encounter Plan of Treatment Not on file documented as of this encounter Visit Diagnoses Not on filedocumented in this encounter Historical Medications * This list may reflect changes made after this encounter. furosemide (LASIX) 40 mg tablet Take 40 mg by mouth daily. diltiazem (CARDIZEM) 60 mg tablet Take 60 mg by mouth as needed. 08/07/2011 spironolactone (ALDACTONE) 50 mg tablet Take 50 mg by mouth daily. 08/07/2011 added in this encounter Care Teams Motor Patrol Operator Relationship Specialty Start Date End Date Rubi Fernandez MD [address] [place] [id number] PCP - General 04/16/09 06/06/20 documented as of this encounter
--- OUTSIDE RECORDS SUMMARY | 2024-09-01 11:45 | XMS_ITS | Encounter Summary ---
Author Organization [facility] Address [address] [place] [address] Care Team Providers Care Financial Services Auditor Name Role Phone UriahErin alonzo JESICA Primary Care Provider [phone] Encounter Details Date Type Department Care Team (Late st Contact Info) Description 06/07/2020 Lab Requisition [facility] Pathology & Laboratory Medicine - [facility] [address] [place] [address] Ena Regan MD [address] [place], [place] [id number] Unspecified chronic gastritis without bleeding; Polyp of colon Social History Tobacco Use Types Packs/Day Years [...] on file documented as of this encounter Procedures Procedure Name Priority Date/Time Associated Diagnosis Comments SURGICAL PATHOLOGY Today 06/06/2020 11 :30 EDT Unspecified chronic gastritis without bleeding Polyp of colon documented in this encounter Results * SURGICAL PATHOLOGY (06/06/2020 11:30 EDT) Final Diagnosis A. DUODENUM, BIOPSY: - Small intestinal mucosa with no significant diagnostic abnormality. B. STOMACH, BIOPSY: - Transitional and fundic mucosa with mild to moderate parietal-cell hyperplasia. - Negative for Helicobacter pylori microorganisms on H&E stained sections. C. COLON, RANDOM, BIOPSIES: - Colonic mucosa with no significant diagnostic abnormality. D. COLON, 25 CM, POLYP, BIOPSY: - Tubular adenoma. E. RECTUM, POLYP, BIOPSY: - Suggestive of hyperplastic polyp. 06/10/2020 11:09 [facility] Attestation By the signature below, the attending physician certifies that they have 1) personally conducted a gross and/or microscopic examination of the described specimen(s), and/or personally interpreted the results of laboratory testing of the described specimen(s), and 2) personally rendered or confirmed the above diagnosis. 06/10/2020 11:09 [facility] at 1109 Clinical History Diarrhea, dysphagia, minimal gastritis 06/10/2020 11:09 [facility] Gross Description A. Received in formalin labelled with proper patient identification (initials C, L) and duodenal Bx are 2 fragments of moeller tissue measuring 0.3 cm and 0.4 cm in greatest dimension. The specimens are submitted entirely in A1. B. Received in formalin labelled with proper patient identification (initials C, L) and gastric Bx are 2 fragments of moeller tissue; each measuring 0.2 x 0.2 x 0.2 cm. The specimens are submitted entirely in B1. C. Received in formalin labelled with proper patient identification (initials C, L) and random colon Bx are multiple fragments of moeller tissue ranging from 0.2-0.3 cm in greatest dimension. The specimens are submitted entirely in C1-C2. D. Received in formalin labelled with proper patient identification (initials C, L) and colon polyp 25 cm is a single fragment of moeller tissue (0.3 x 0.3 x 0.3 cm). The specimen is submitted entirely in D1. E. Received in formalin labelled with proper patient identification (initials C, L) and rectal polyp is a single fragment of moeller tissue (0.4 x 0.3 x 0.2 cm). The specimen is submitted entirely in E1. 06/07/2020 16:12 06/10/2020 11:09 EDT [facility] Performing Lab [facility] 06/10/2020 11:09 EDT [facility] Scanned Images 06/10/2020 11:09 EDT [facility] Tissue SPECIMEN FROM RECTUM / Unknown 06/07/2020 11:30 EDT 06/07/2020 15:38 EDT Tissue specimen (specimen) STOMACH STRUCTURE / Unknown 06/06/2020 11:30 EDT 06/07/2020 15:38 EDT Tissue specimen (specimen) COLON STRUCTURE / Unknown 06/06/2020 11:30 EDT 06/07/2020 15:38 EDT Tissue specimen (specimen) POLYP OF COLON / Unknown 06/06/2020 11:30 EDT 06/07/2020 15:38 EDT Tissue specimen (specimen) SPECIMEN FROM RECTUM / Unknown 06/06/2020 11:30 EDT 06/07/2020 15:38 EDT us Ena Regan MD PATHOLOGY ORDERABLES Final Resul t [facility] [address] [place] [address] documented in this encounter Visit Diagnoses Diagnosis Unspecified chronic gastritis without bleeding Polyp of colon Benign neoplasm of colon documented in this encounter Care Teams Financial Services Auditor Relationship Specialty Start Date End Date Erin Velez NP [address] [place] [address] PCP - General 06/07/20 documented as of this encounter
--- OUTSIDE RECORDS SUMMARY | 2024-09-01 11:45 | XMS_ITS | Encounter Summary ---
Author Organization [facility] Address [address] [place] [address] Care Team Providers Care Counter Intelligence Agent Name Role Phone Rubi Fernandez MD Primary Care Provider [phone] Reason for Visit * Reason Comments Other 2 weeks post SVT abl ation, doingawesome Encounter Details Date Type Department Care Team (Late st Contact Info) Description 10/12/2011 13:00 EST Office Visit [facility] Cardiology [place] [address] Lloyd Hernandes MD [address] [facility] [place] [address] SVT (supraventricular tachycardia) ([facility]) (Primary Dx) Social History Tobacco Use Types Packs/Day Years [...] Sign Reading Time Taken Comments Blood Pressure 118/78 10/12/2011 1254 EST Pulse 85 10/12/2011 1254 EST Temperature - - Respiratory Rate - - Oxygen Saturation 100% 10/12/2011 1254 EST Inhaled Oxygen Concentration - - Weight 86.2 kg (190 lb) 10/12/2011 1254 EST Height 170.2 cm (5' 7) 10/12/2011 1254 EST Body Mass Index 29.76 10/12/2011 1254 EST documented in this encounter Progress Notes * Lloyd Hernandes MD - 10/12/2011 1337 EST Subjective: Patient ID: Silvia Shirley is an 41 y.o. female. Chief Complaint Patient presents with ??? Other 2 weeks post SVT ablation, doingawesome Here for svt follow up HPI Doing well s/p ablation of sVT. Easily inducible ORT using left lateral AP. Post ablation, she has had no SVT. Feels great. Groin punctures healing without incident. Very happy. Feels like it might start, but has not. Patient Active Problem List Diagnoses ??? SVT (supraventricular tachycardia) Past Medical History Diagnosis Date ??? SVT (supraventricular tachycardia) ??? Hypertension ??? Blood transfusion 2003 ??? CHF (congestive heart failure) 2006 was told CHF Past Surgical History Procedure Date ??? Cholecystectomy ??? Appendectomy ??? Aorta surgery 2003 repair post ablation tear in [place] No family history on file. Social History Substance Use Topics ??? Smoking status: Never Smoker ??? Smokeless tobacco: Not on file ??? Alcohol Use: Yes 2 x month Current Outpatient Prescriptions on File Prior to Visit Medication Sig Dispense Refill ??? POTASSIUM ORAL Take 20 mg by mouth daily. ??? furosemide (LASIX) 40 mg tablet Take 40 mg by mouth daily. Allergies Allergen Reactions ??? Diltiazem Other (See Comments) Jay weak-pulse very slow ??? No Known Drug Allergies ROS - See HPI Objective: BP 118/78 Pulse 85 Ht 170.2 cm (67) Wt 86.183 kg (190 lb) BMI 29.76 kg/m2 SpO2 100% Physical Exam Gen: a/o x 3 Lungs: clear CV: rrr with normal s1s2 ABD: soft, nt, bs+ EXT: No edema Assessment: S/p ablation of left lateral AP, participating in ORT variety of SVT Doing very well Can stay off meds Will follow PRN for recurrent symptoms, Plan: Silvia was seen today for other. Diagnoses and associated orders for this visit: Svt (supraventricular tachycardia) As above Lloyd Hernandes MD documented in this encounter Plan of Treatment Not on file documented as of this encounter Visit Diagnoses Diagnosis SVT (supraventricular tachycardia) ([facility] Primary Other specified cardiac dysrhythmias documented in this encounter Care Teams Counter Intelligence Agent Relationship Specialty Start Date End Date Rubi Fernandez MD [address] [place], [place] [address] [address] [place] [address] PCP - General 04/16/09 06/06/20 documented as of this encounter
--- OUTSIDE RECORDS SUMMARY | 2024-09-01 11:45 | XMS_ITS | Encounter Summary ---
Author Organization [facility] Address [address] [place] [address] Care Team Providers Care Layout Former Name Role Phone Rubi Fernandez MD Primary Care Provider [phone] Encounter Details Date Type Department Care Team (Late st Contact Info) Description 02/18/2015 Results Only [facility] [phone] Rupinder Leach, [address] [place] [address] Social History Tobacco Use Types Packs/Day Years [...] Procedure Name Priority Date/Time Associated Diagnosis Comments PAP TEST- RESULT ONLY Routine 02/18/2015 0:00 EDT documented in this encounter Results * PAP TEST- RESULT ONLY (02/18/2015 0:00 EDT) Pathology Report: CYTOPATHOLOGY REPORT Reports generated via electronic interface contain original data; however they are lacking the format of the original report. Caution should be taken when reading/interpreti ng unformatted reports. Name: ? CALL, SILVIA Ramirez ? Accession #: ? [id number] ? : ? 1970 (Age: 44) ??F ?Collect Date: ? 02/18/2015 ? Location: ? [facility] ? Receive Date: ? 02/19/2015 ? Provider: RUPINDER LEACH [facility] Copy to: RUBI FERNANDEZ MD ? Final Report SPECIMEN ADEQUACY ? Satisfactory for Evaluation - transformation zone component present GENERAL CATEGORIZATION ? Negative for Intraepithelial Lesion or Malignancy ?? Specimen/Source: ??Pap Test, Cervix/Endocervix, ThinPrep Imaging System with manual evaluation Document reviewed and electronically signed by: ? Lloyd Banks, KERMIT(ASCP) ? Report ??Date: 02/26/2015 11:21 HPV with Pap Test ? Date Ordered: ? 02/26/2015 ? Status: ?? Signed Out ?Date Complete: ? 02/28/2015 ? By: ??System Interface ? Date Reported: ? 02/28/2015 ? Interpretation RESULT: Negative for HPV. No E6 or E7 mRNA is detected from HPV types 16,18,31,33,35, 39,45,51,52,56,58, 59,66, and 68 by validation scientist mediated amplification. Comments Document reviewed and electronically signed by: ? System Interface ? Report date: 02/28/2015 By the signature above, the attending physician certifies that he/she has personally conducted a gross and/or microscopic examination of the described specimens and rendered or confirmed the above diagnosis. End of Report [facility] 02/18/2015 02/19/2015 us Rupinder Leach TIN TIE MACHINE OPERATOR AUTOMATIC PATHOLOGY ORDERABLES Final R esult [facility] [address] [place] [address] documented in this encounter Visit Diagnoses Not on filedocumented in this encounter Care Teams Layout Former Relationship Specialty Start Date End Date Rubi Fernandez MD [address] [place] [address] PCP - General 04/16/09 06/06/20 documented as of this encounter
--- OUTSIDE RECORDS SUMMARY | 2024-09-01 11:45 | XMS_ITS | Encounter Summary ---
Author Organization [facility] Address [address] [place] [address] Care Team Providers Care Loom Fixer Helper Name Role Phone Unavailable Primary Care Provider Unavailabl e Encounter Details Date Type Department Care Team (Latest Contact Info) Description 11/01/2005 0:14 EST - 11/01/2005 11:[address] [facility] Emergency Department - [facility] [address] [place] [address] Emergency, Default, MD Discharge Disposition: Home or Self Care Social History Tobacco Use Types Packs/Day Years Used Date Smoking Tobacco: Never Assessed Comments Unknown Sex and Gender Information Value Date Recorded Sex Assigned at Not on file Legal Sex Female 18:12 EST Gender Identity Not on file Sexual Orientation Not on file documented as of this encounter Discharge Disposition Disposition Code Departure Means Destination Home or Self Care documented in this encounter Plan of Treatment Not on file documented as of this encounter Procedures Procedure Name Priority Date/Time Associated Diagnosis Comments HOLD SST Routine 11/01/2005 0:21 EST HOLD PURPLE TOP Routine 11/01/2005 0:21 EST HOLD GREEN TOP Routine 11/01/2005 0:21 EST HOLD BLUE TOP Routine 11/01/2005 0:21 EST documented in this encounter Results * HOLD SST (11/01/2005 0:21 EST) Hold SST Hold for further testing. Specimen will be held for 30 days. [facility] 11/01/2005 0:21 EST 11/01/2005 0:26 EST us Default Emergency MD LAB INFO SERVICE AND SUPPOR T & PHONE RESULT Final Result Performing Organization Address [facility] de Phone Number [facility] [address] [place] [address] * HOLD PURPLE TOP (11/01/2005 0:21 EST) Hold Purple Top EDTA for hematology will be discarded after 48 hours, differential not available after 12 hours. [facility] 11/01/2005 0:21 EST 11/01/2005 0:26 EST us Default Emergency MD LAB INFO SERVICE AND SUPPOR T & PHONE RESULT Final Result Performing Organization Address [facility] Phone Number [facility] [address] [place] [address] * HOLD GREEN TOP (11/01/2005 0:21 EST) Hold Green Top Hold for further testing. Specimen will be held for 30 days. [facility] 11/01/2005 0:21 EST 11/01/2005 0:26 EST us Default Emergency MD LAB INFO SERVICE AND SUPPOR T & PHONE RESULT Final Result Performing Organization Address [facility] de Phone Number [facility] [address] [place] [address] * HOLD BLUE TOP (11/01/2005 0:21 EST) Hold Blue Top Sample for coagulation will be discarded after 4 hours [facility] 11/01/2005 0:21 EST 11/01/2005 0:26 EST us Default Emergency MD LAB INFO SERVICE AND SUPPOR T & PHONE RESULT Final Result Performing Organization Address [facility] de Phone Number [facility] [address] [place] [address] documented in this encounter Visit Diagnoses Not on filedocumented in this encounter
--- OUTSIDE RECORDS SUMMARY | 2024-09-01 11:45 | XMS_ITS | Encounter Summary ---
Author Organization [facility] Address [address] [place] [address] Care Team Providers Care Delivery Manager Name Role Phone Rubi Fernandez MD Primary Care Provider [phone] Encounter Details Date Type Department Care Team (Late st Contact Info) Description 01/13/2017 Results Only [facility] [phone] Heide De La Cruz MD [facility] [place], [place] [address] Social History Tobacco Use Types Packs/Day Years [...] Priority Date/Time Associated Diagnosis Comments SURGICAL PATHOLOGY Routine 01/13/2017 11 :13 EDT documented in this encounter Results * SURGICAL PATHOLOGY (01/13/2017 11:13 EDT) Pathology Report: SURGICAL PATHOLOGY REPORT Reports generated via electronic interface contain original data; however they are lacking the format of the original report. Caution should be taken when reading/interpret ing unformatted reports. Name: ? CALL, SILVIA Ramirez ? Accession #: ? [id number] ? : ? 1970 (Age: 46) ??F ? Collect Date: ? 01/13/2017 ? Location: ? [facility] ? Receive Date: ? 01/14/2017 ? Provider: HEIDE DE LA CRUZ MD Copy to: RUBI FERNANDEZ MD ? Final Pathologic Diagnosis: ENDOMETRIUM, BIOPSY: - Benign endometrial polyp. - Strips of inactive endometrial glands with tubal metaplasia. - Benign endocervical glands. Document reviewed and electronically signed by: Quang Norwood MD Report ??Date: 01/15/2017 12:09 By the signature above, the attending physician certifies that he/she has personally conducted a gross and/or microscopic examination of the described specimens and rendered or confirmed the above diagnosis. Specimen(s) Received: Endometrial biopsy Clinical History: Heavy regular menses; fibroid uterus ? impinging on endometrial cavity Gross Description: ? Received in formalin labelled with proper patient identification (initials C, L) and endometrium is an aggregate of soft moeller-white material admixed with moeller-brown and clear mucinous material (2.0 x 1.7 x 0.4 cm). Submitted in toto in 1 and 2. Milady Nair 01/14/2017 11:59 AM End of Report [facility] 01/13/2017 11:1 3 EDT 01/14/2017 11:13 EDT us Heide De La Cruz MD PATHOLOGY ORDERABLES Final Res ult [facility] [address] [place] [address] documented in this encounter Visit Diagnoses Not on filedocumented in this encounter Care Teams Delivery Manager Relationship Specialty Start Date End Date Rubi Fernandez MD [address] [place] [address] PCP - General 04/16/09 06/06/20 documented as of this encounter
--- OUTSIDE RECORDS SUMMARY | 2024-09-01 11:45 | XMS_ITS | Encounter Summary ---
Author Organization [facility] Address [address] [place] [address] Care Team Providers Care Metal Model Builder Name Role Phone UriahErin alonzo JESICA Primary Care Provider [phone] Encounter Details Date Type Department Care Team (Late st Contact Info) Description 03/08/2021 Lab Requisition [facility] Pathology & Laboratory Medicine - [facility] [address] [place] [address] Outr Resulting Lab, Provider Social History Tobacco Use Types Packs/Day Years Used Date Smoking Tobacco: Never Alcohol Use Standard Drinks/Week Comments Yes 0 (1 standard drink = 0.6 oz pur e alcohol) 2 x month Interpersonal Safety Answer Date Record ed Physically Hurt Never 06/12/2020 Verbally Threaten Not on file 06/12/2020 Comments Unknown Sex and Gender Information Value Date Recorded Sex Assigned at Not on file Legal Sex Female 18:12 EST Gender Identity Not on file Sexual Orientation Not on file documented as of this encounter Plan of Treatment Not on file documented as of this encounter Procedures Procedure Name Priority Date/Time Associated Diagnosis Comments ZZCOVID-19 TEST [facility] PCR Today 03/08/2021 9:00 EDT COVID-19 TESTING Routine 03/08/2021 9:00 EDT documented in this encounter Results * COVID-19 TEST [facility] PCR (03/08/2021 9:00 EDT) Swab ENTIRE NASOPHARYNX / Unknown 03/08/2021 9:00 EDT 03/08/2021 21:39 EDT us Provider Outr Resulting Lab MICROBIOLOGY - GENER AL ORDERABLES Final Result [facility] [address] [place] [address] * COVID-19 TESTING (03/08/2021 9:00 EDT) COVID-19 rt-PCR Result Negative Negative 03/09/2021 13:22 EDT [facility] Comment: This test has not been FDA cleared or approved. This test has been authorized by FDA under an EUA for use by authorized laboratories. This test has been authorized only for detection of nucleic acid from 2019-nCoV, not for any other viruses or pathogens. This test is only authorized for the duration of the declaration that circumstances exist justifying the authorization of emergency use of in vitro diagnostic tests for detection and/or diagnosis of 2019-nCoV under section 564(b)(1) of Act, 21 U.S.C ?? 360bbb-3(b) (1), unless the authorization is terminated or revoked sooner. Negative results do not preclude 2019-nCoV infection and should not be used as the sole basis for treatment or other patient management decisions. Negative results must be combined with clinical observations, patient history, and epidemiological information. This test was developed and its performance characteristics determined by [facility]. It has not been cleared or approved by the US Food and Drug Administration. FDA does not require this test to go through premarket FDA review. This test is used for clinical purposes. It should not be regarded as investigational or for research. This laboratory is certified under the Clinical Laboratory Improvement Amendments (CLIA) as qualified to perform high complexity clinical laboratory testing. This test is based on the [facility] COVID-19 Emergency Use Authorization (EUA) assay, with minor modification as defined by the FDA Performed on the [employer] 7 Pro RT-PCR System. Performing Lab [facility] 03/09/2021 13:22 EDT [facility] Swab 03/08/2021 9:00 EDT 03/08/2021 21:39 EDT us Provider Outr Resulting Lab MICROBIOLOGY - GENER AL ORDERABLES Final Result [facility] [address] [place] [address] documented in this encounter Visit Diagnoses Not on filedocumented in this encounter Care Teams Metal Model Builder Relationship Specialty Start Date End Date Erin Velez NP [address] [place] [address] PCP - General 06/07/20 documented as of this encounter
--- OUTSIDE RECORDS SUMMARY | 2024-09-01 11:45 | XMS_ITS | Encounter Summary ---
Author Organization [facility] Address [address] [place] [address] Care Team Providers Care Director Medical Affairs Name Role Phone Unavailable Primary Care Provider Unavailabl e Encounter Details Date Type Department Care Team (Late st Contact Info) Description 11/26/2008 8:57 EDT Hospital Encounter [facility] [place] [facility] [address] [place] [address] Carolee Hampton, PhD [address] [place] [phone] Social History Tobacco Use Types Packs/Day Years [...]
--- OUTSIDE RECORDS SUMMARY | 2024-09-01 11:45 | XMS_ITS | Referral Summary ---
Author Organization [facility] Address [address] [place] [address] Care Team Providers Care Manager Business Information Name Role Phone Erin Velez JESICA Primary Care Provider Encounters Date Type Department Care Team Description 08/11/2024 Lab Requisition [facility] Pathology & Laboratory [facility] [address] [place] [address] Outr Resulting Lab, Provider 08/11/2024 Lab Requisition [facility] Pathology Laboratory [facility] [address] [place] [address] Outr Resulting Lab, Provider from Last 3 Months Allergies Active Allergy Reactions Criticality Noted Date Comments Diltiazem Other (See Comments) 09/28/2011 [place] weak-pulse very slow No Known Drug Allergies 09/28/2011 Medications furosemide (LASIX) 40 mg tablet Take 40 mg by mouth daily. Active POTASSIUM ORAL Take 20 mg by mouth daily. Active Active Problems Problem Noted Date Diagnosed Date Supraventricular tachycardia ([facility]) 2 Social History Tobacco Use Types Packs/Day Years [...] on file Sexual Orientation Not on file Last Filed Vital Signs Vital Sign Reading Time Taken Comments Blood Pressure 118/78 10/12/2011 1254 EST Pulse 85 10/12/2011 1254 EST Temperature 36.8 ??C (98.2 ??F) 09/28/2011 1428 EST Respiratory Rate 18 09/28/2011 1600 EST Oxygen Saturation 100% 10/12/2011 1254 EST Inhaled Oxygen Concentration - - Weight 86.2 kg (190 lb) 10/12/2011 1254 EST Height 170.2 cm (5' 7) 10/12/2011 1254 EST Body Mass Index 29.76 10/12/2011 1254 EST Plan of Treatment Not on file Procedures Procedure Name Priority Date/Time Associated Diagnosis Comments HEPATITIS C AB W REFLEX TO HCV RNA BY PCR Routine 08/11/2024 13:22 EST HEPATITIS B PROFILE Routine 08/11/2024 1 3:22 EST HIV 1/2 ANTIGEN AND ANTIBODY, 4TH GENERATION Routine 08/11/2024 13:22 EST from Last 3 Months Results * HEPATITIS C AB W REFLEX TO HCV RNA BY PCR (08/11/2024 13:22 EST) Hep C Antibody Negative Negative 08/11/2024 22:44 EST [facility] Blood VENOUS BLOOD / Unknown 08/11/2024 13:22 EST 08/11/2024 21:08 EST us Provider Outr Resulting Lab CHEMISTRY & BLOOD GA S ORDERABLES Final Result [facility] [address] [place] [address] * HEPATITIS B PROFILE (08/11/2024 13:22 EST) Hep B Surface Ag Negative Negative 08/11/20 22:47 EST [facility] Hep B Surface Ab, Quantitative <3.1 See Note mIU/mL 08/11/2024 22:47 [facility] Comment: Reference Range for Hep B Surface Ab, Quant: Positive: >= 10.0 mIU/mL Negative: ??< 10.0 mIU/mL Patient is presumed to not be immune to infection with Hepatitis B Virus. Hep B Surface Ab, Qualitative Negative See Note 08/11/2024 22:47 [facility] Comment: Reference Range for Hep B Surface Ab, Qual: Unvaccinated: ??Negative Vaccinated: ??Positive Hepatitis B Core Ab, Total Negative Negative 08/11/2024 22:47 [facility] Blood VENOUS BLOOD / Unknown 08/11/2024 13:22 EST 08/11/2024 21:08 EST Provider Outr Resulting Lab CHEMISTRY & BLOOD GA S ORDERABLES Final Result Performing Organization Address [facility] Co de Phone Number [facility] [address] [place] [phone] * HIV 1/2 ANTIGEN AND ANTIBODY, 4TH GENERATION (08/11/2024 13:22 EST) Pathologist [facility] HIV 1 and 2 Antibody/p24 Antigen, 4th Generation Negative Negative 08/11/2024 23:03 EST [facility] Comment:If acute HIV-1 infec tion is suspected in a high risk patient, submit plasma specimen for HIV-1 RNA quantitation test. Blood VENOUS BLOOD / Unknown 08/11/2024 13:22 EST 08/11/2024 21:08 EST Narrative [facility] - 08/11/2024 23:03 EST Fourth Generation assay performed on the Siemens Centaur XPT. us Provider Outr Resulting Lab IMMUNOLOGY AND SEROL OGY ORDERABLES Final Result Performing Organization Address City/[facility]/ZIP Co de Phone Number [facility] [address] [place] [phone] from Last 3 Months Insurance [employer] [employer] Advance Directives For more information, please contact: [phone] * Full Code (Latest Code Status on File) Date Activated Date Inactivated Comments 09/28/2011 14:17 09/28/2011 19:10 Care Teams Manager Business Information Relationship Specialty Start Date End Date Erin Velez NP [address] [place] [address] [address] [place] [phone] PCP - General 06/07/20
--- OUTSIDE RECORDS SUMMARY | 2024-09-01 11:45 | XMS_ITS | Encounter Summary ---
Author Organization [facility] Address [address] [place] [address] Care Team Providers Care Charge Coordinator Name Role Phone Rubi Fernandez MD Primary Care Provider Encounter Details Date Type Department Care Team (Latest Contact Info) Description 04/26/2009 7:35 EDT - 04/26/2009 23:59 EDT Hospital Encounter [facility] [address] [place], [place] [address] Lawrence Irby MD [address] [place] [phone] Discharge Disposition: Home or Self Care Social [...] Code Departure Means Destination Home or Self Senior Care documented in this encounter Plan of Treatment Not on file documented as of this encounter Procedures Procedure Name Priority Date/Time Associated Diagnosis Comments SURGICAL PATHOLOGY Routine 06/11/2009 0:00 EDT CYTOPATHOLOGY Routine 05/30/2009 0:00 EDT documented in this encounter Results * SURGICAL PATHOLOGY (06/11/2009 0:00 EDT) Pathology Report: SURGICAL PATHOLOGY REPORT ? Reports generated via electronic interface contain original data; ? however they are lacking the format of the original report. ? Caution should be taken when reading/interpreting unformatted reports. ? Name: ? CALL, SILVIA M ? Accession #: ? [id number] ? : ? 1970 (Age: 39) ??F ? Collect Date: ? 06/11/2009 ? Location: ? [facility] ? Receive Date: ? 06/11/2009 ? Provider: LAWRENCE M FORGIONE MD ? Copy to: RUBI M DOBBERTIN MD ? Final Pathologic Diagnosis: ? Stomach, antrum, biopsy: ? 1. ?Chronic active gastritis. ? 2. ? No Helicobacter pylori organisms identified on immunohistochemical ? staining. ??See comment. ? Comment: ? To rule out MALT lymphoma, a panel of immunohistochemical stains were ? utilized. ??Positive and negative controls stained appropriately. ??(M. Joseph)/ljn ? Antibody (Clone) ? Result ? H. pylori (polyclonal, [facility]) ? Negative ? Keratin AE1-AE3 (AE1-AE3, [facility]) ?No lymph-epithelial ? lesions identified ? CD20 (B-cell) (L26, [facility]) ?Highlights mixed population of ?? lymphoid cells ? CD3 (T-cell) (Rabbit Monoclonal (SP7), [facility]) ? Highlights mixed ? population of lymphoid cells ? NOTE: ??One or more of the reagents used in immunohistochemical testing in this case may not have been cleared or approved by the U.S. Food and Drug ? Administration (FDA). ??The FDA has determined that such clearance or approval is not necessary. ??These tests are used for clinical purposes. ??They should not be regarded as investigational or for research. ??These reagents' ??performance ? characteristics have been determined by [facility]. ??This ? laboratory is certified under the Clinical Laboratory Improvement Amendments of 1988 (CLIA-88) as qualified to perform high complexity clinical laboratory ? testing. ? Document reviewed and electronically signed by: ? KERWIN MOUNT MD ? Report ??Date: 06/14/2009 14:04 ? By the signature above, the attending physician certifies that he/she has ? personally conducted a gross and/or microscopic examination of the described ? specimens and rendered or confirmed the above diagnosis. ? Specimen(s) Received: ? Antrum ? Clinical History: ? R/O H. pylori ? Gross Description: ? Received in Hollande's fixative labelled Call, Silvia and antrum is a ? moeller-pink 0.6 x 0.2 x 0.2 cm soft tissue fragment. ??The specimen is entirely ? submitted in one cassette. ??(Martha Knox)/ljn ? End of Report ? [facility] 06/11/2009 06/11/2009 12: 52 EDT us Lawrence Irby MD PATHOLOGY ORDERABLES Final Result [facility] [address] [place] [address] * CYTOPATHOLOGY (05/30/2009 0:00 EDT) Pathology Report: CYTOPATHOLOGY REPORT ? Reports generated via electronic interface contain original data; ? however they are lacking the format of the original report. ? Caution should be taken when reading/interpreti ng unformatted reports. ? Name: ? CALL, SILVIA Ramirez ? Accession #: ? [id number] ? : ? 1970 (Age: 39) ??F ?Collect Date: ? 05/30/2009 ? Location: ? [facility] ? Receive Date: ? 05/31/2009 ? Provider: ?GREGORY SARAH CAR HIKER ? Copy to: ? Specimen/Source: ?Pap Test, Cervix/Endocervix, ThinPrep Imaging System ? with manual evaluation ? Last Menstrual Period: ? 8/26/09 ? Other: ? HPVA - HPV testing requested if ASC-US on the current ThinPrep Pap test. ? SPECIMEN ADEQUACY ? Satisfactory for Evaluation ? - transformation zone component present ? GENERAL CATEGORIZATION ? Negative for Intraepithelial Lesion or Malignancy ? Document reviewed and electronically signed by: ? Julisa Iker, CT(ASCP) ? Report Date: ??06/05/2009 13:03 ? End of Report ? JUAN C TRINIDAD 05/30/2009 05/31/2009 us Gregory Leach CAR HIKER PATHOLOGY ORDERABLES Final R esult [facility] [address] [place] [address] documented in this encounter Visit Diagnoses Not on filedocumented in this encounter Care Teams Charge Coordinator Relationship Specialty Start Date End Date Rubi Fernandez MD [address] [place] [phone] PCP - General 04/16/09 06/06/20 documented as of this encounter
--- OUTSIDE RECORDS SUMMARY | 2024-09-01 11:45 | XMS_ITS | Encounter Summary ---
Author Organization [facility] Address [address] [place] [address] Care Team Providers Care Sponge Press Operator Name Role Phone UriahErin alonzo JESICA Primary Care Provider [phone] Encounter Details Date Type Department Care Team (Late st Contact Info) Description 08/11/2024 Lab Requisition [facility] Pathology & Laboratory Medicine - [facility] [address] [place] [address] Outr Resulting Lab, Provider Social History Tobacco [...] Procedure Name Priority Date/Time Associated Diagnosis Comments HIV 1/2 ANTIGEN AND ANTIBODY, 4TH GENERATION Routine 08/11/2024 13:22 EST documented in this encounter Results * HIV 1/2 ANTIGEN AND ANTIBODY, 4TH GENERATION (08/11/2024 13:22 EST) HIV 1 and 2 Antibody/p24 Antigen, 4th Generation Negative Negative 08/11/2024 23:03 EST [facility] Comment:If acute HIV-1 infec tion is suspected in a high risk patient, submit plasma specimen for HIV-1 RNA quantitation test. Blood VENOUS BLOOD / Unknown 08/11/2024 13:22 EST 08/11/2024 21:08 EST Narrative [facility] - 08/11/2024 23:03 EST Fourth Generation assay performed on the Siemens Zipfitaur XPT. us Provider Outr Resulting Lab IMMUNOLOGY AND SEROL OGY ORDERABLES Final Result [facility] [address] [place] [address] documented in this encounter Visit Diagnoses Not on filedocumented in this encounter Care Teams Sponge Press Operator Relationship Specialty Start Date End Date Erin Velez NP [address] [place] [address] [address] [place] [phone] PCP - General 06/07/20 documented as of this encounter
--- OUTSIDE RECORDS SUMMARY | 2024-09-01 11:45 | XMS_ITS | Encounter Summary ---
Author Organization [facility] Address [address] [place] [address] Care Team Providers Care [facility] Owner Name Role Phone Rubi Fernandez MD Primary Care Provider [phone] Encounter Details Date Type Department Care Team (Latest Contact Info) Description 03/10/2017 8:09 EDT - 03/10/2017 23:59 EDT Hospital Encounter [address] [address] Unknown, Provider, Discharge Disposition: Home or Self Care Social [...] on file documented as of this encounter Medications at Time of Discharge furosemide (LASIX) 40 mg tablet Take 40 mg by mouth daily. POTASSIUM ORAL Take 20 mg by mouth daily. documented as of this encounter Discharge Disposition Disposition Code Departure Means Destination Home or Self Residential documented in this encounter Plan of Treatment Not on file documented as of this encounter Visit Diagnoses Not on filedocumented in this encounter Care Teams [facility] Owner Relationship Specialty Start Date End Date Rubi Fernandez MD [address] [place] [address] [address] [place] [address] PCP - General 04/16/09 06/06/20 documented as of this encounter
--- OUTSIDE RECORDS SUMMARY | 2024-09-01 11:45 | XMS_ITS | Encounter Summary ---
Author Organization [facility] Address [address] [place] [address] Care Team Providers Care Military Communications Specialist Name Role Phone Rubi Fernandez MD Primary Care Provider [phone] Erin Velez NP Primary Care Provider [phone] Encounter Details Date Type Department Care Team (Late st Contact Info) Description 06/04/2020 Lab Requisition [facility] Pathology & Laboratory Medicine - [facility] [address] [place], [place] [address] Outr Resulting Lab, Provider Social History Tobacco [...] Procedure Name Priority Date/Time Associated Diagnosis Comments DO NOT ORDER STANDALONE - BROAD COVID TEST Today 06/04/2020 9:58 EDT COVID-19 TESTING Routine 06/04/2020 9:58 EDT documented in this encounter Results * DO NOT ORDER STANDALONE - BROAD COVID TEST (06/04/2020 9:58 EDT) COVID-19 rt-PCR Result NEGATIVE Negative 06/05/2020 10:45 EDT [facility] Comment: 2019-novel Coronavirus (2019-nCoV) not detected by the qRT-PCR assay. Consider testing for other respiratory viruses or re-collecting for 2019-nCoV testing. Note: Optimum timing for peak viral levels during infections caused by 2019-nCoV have not been determined. Collection of multiple specimens from the same patient may be necessary to detect the virus. Limitations Positive results are indicative of active infection with SARS-CoV-2 but do not rule out bacterial infection or co-infection with other viruses. The agent detected may not be the definite cause of disease. In addition, detection of viral RNA may not indicate the presence of infectious virus or that SARS-CoV-2 is the causative agent for clinical symptoms. Negative results do not preclude SARS-CoV-2 infection and should not be used as the sole basis for patient management decisions. Negative results must be combined with clinical observations, patient history, and epidemiological information. False negative results may also occur if amplification inhibitors are present in the specimen or if inadequate numbers of organisms are present in the specimen. Optimum specimen types and timing for peak viral levels during infections caused by SARS-CoV-2 have not been fully determined. Collection of multiple specimens (types and time points) from the same patient may be necessary to detect the virus. The test was validated for use with upper respiratory specimens obtained via nasopharyngeal or oropharyngeal swabs in VTM, UTM, M4, M5, M6, saline, and MTM media. The performance of this test has not been established for other specimens. Specimens collected using other FDA recommended Specimen Collection Materials listed in the FDA COVID-19 Diagnostic Technologies communication (December 14, 2019) are processed with the caveat that they were not all validated for use with this test and the result must be interpreted in this context. Furthermore, a false negative results may occur if a specimen is improperly collected, transported or handled. If the virus mutates in the RT-PCR target region, SARS-CoV-2 may not be detected or may be detected less predictably. Inhibitors or other types of interference may produce a false negative result. An interference study evaluating the effect of common cold medications was not performed. This test is not FDA-cleared but its performance characteristics were established by our CLIA-certified, CAP-accredited, high complexity laboratory in accordance with CLIA regulations, College [employer] (CAP) guidelines (Dec 07, 2019), and FDA guidance (Nov 18, 2019). This test is only for use under the Food and Drug Administration's Emergency Use Authorization. Swab ENTIRE NASOPHARYNX / Unknown 06/04/2020 9:58 EDT 06/04/2020 16:32 EDT us Provider Outr Resulting Lab MICROBIOLOGY - GENER AL ORDERABLES Final Result [facility] [place], [place] * COVID-19 TESTING (06/04/2020 9:58 EDT) COVID-19 rt-PCR Result NEGATIVE Negative 06/05/2020 12:49 EDT [facility] Comment: 2019-novel Coronavirus (2019-nCoV) not detected by the qRT-PCR assay. Consider testing for other respiratory viruses or re-collecting for 2019-nCoV testing. Note: Optimum timing for peak viral levels during infections caused by 2019-nCoV have not been determined. Collection of multiple specimens from the same patient may be necessary to detect the virus. Limitations Positive results are indicative of active infection with SARS-CoV-2 but do not rule out bacterial infection or co-infection with other viruses. The agent detected may not be the definite cause of disease. In addition, detection of viral RNA may not indicate the presence of infectious virus or that SARS-CoV-2 is the causative agent for clinical symptoms. Negative results do not preclude SARS-CoV-2 infection and should not be used as the sole basis for patient management decisions. Negative results must be combined with clinical observations, patient history, and epidemiological information. False negative results may also occur if amplification inhibitors are present in the specimen or if inadequate numbers of organisms are present in the specimen. Optimum specimen types and timing for peak viral levels during infections caused by SARS-CoV-2 have not been fully determined. Collection of multiple specimens (types and time points) from the same patient may be necessary to detect the virus. The test was validated for use with upper respiratory specimens obtained via nasopharyngeal or oropharyngeal swabs in VTM, UTM, M4, M5, M6, saline, and MTM media. The performance of this test has not been established for other specimens. Specimens collected using other FDA recommended Specimen Collection Materials listed in the FDA COVID-19 [employer] communication (December 14, 2019) are processed with the caveat that they were not all validated for use with this test and the result must be interpreted in this context. Furthermore, a false negative results may occur if a specimen is improperly collected, transported or handled. If the virus mutates in the RT-PCR target region, SARS-CoV-2 may not be detected or may be detected less predictably. Inhibitors or other types of interference may produce a false negative result. An interference study evaluating the effect of common cold medications was not performed. This test is not FDA-cleared but its performance characteristics were established by our CLIA-certified, CAP-accredited, high complexity laboratory in accordance with CLIA regulations, College of [employer] (CAP) guidelines (Dec 07, 2019), and FDA guidance (Nov 18, 2019). This test is only for use under the Food and Drug Administration's Emergency Use Authorization. Performing Lab [facility] 06/05/2020 12:49 EDT [facility] Swab 06/04/2020 9:58 EDT 06/04/2020 16:32 EDT us Provider Outr Resulting Lab MICROBIOLOGY - GENER AL ORDERABLES Final Result [facility] [address] [place] [address] [facility] [place], [place] documented in this encounter Visit Diagnoses Not on filedocumented in this encounter Care Teams Military Communications Specialist Relationship Specialty Start Date End Date Rubi Fernandez MD [address] [place] [address] PCP - General 04/16/09 06/06/20 Erin Velez NP [address] [place] [address] PCP - General 06/07/20 documented as of this encounter
--- OUTSIDE RECORDS SUMMARY | 2024-09-01 11:45 | XMS_ITS | Encounter Summary ---
Author Organization [facility] Address [address] [place] [address] Care Team Providers Care System Administrator Name Role Phone Rubi Fernandez MD Primary Care Provider [phone] Encounter Details Date Type Department Care Team (Latest Contact Info) Description 06/11/2009 8:49 EDT - 06/11/2009 23:59 EDT Hospital Encounter [facility] [address] [place], [place] [address] Lawrence Irby MD [address] [place] [phone] Discharge Disposition: Home or Self Care [...] Code Departure Means Destination Home or Self [facility]sp documented in this encounter Procedure Notes * Inpatient, Physician - 06/12/2009 0953 EDT * Inpatient, Physician - 06/12/2009 0953 EDTAssociated Order(s): PATHOLOGY - SCANNED * Inpatient, Physician - 06/12/2009 0952 EDTAssociated Order(s): ORDERS - SCANNED documented in this encounter Miscellaneous Notes * Scanned Note-Null - Inpatient, Physician - 06/12/2009 0953 EDT * Scanned Note-Null - Inpatient, Physician - 06/12/2009 0952 EDT * Brief Op Note - Inpatient, Physician - 06/12/2009 0952 EDT documented in this encounter Plan of Treatment Not on file documented as of this encounter Procedures Procedure Name Priority Date/Time Associated Diagnosis Comments PATHOLOGY - SCANNED 06/12/2009 9:53 EDT ORDERS - SCANNED 06/12/2009 9:52 EDT documented in this encounter Results * PATHOLOGY - SCANNED (06/12/2009 9:53 EDT) 06/12/2009 9:53 EDT Narrative Procedure Note Inpatient, Physician - 06/12/2009 9:53 EDT Physician Inpatient MD LAB INFO SERVICE AND SUPP ORT & PHONE RESULT Final Result * ORDERS - SCANNED (06/12/2009 9:52 EDT) 06/12/2009 9:52 EDT Narrative Procedure Note Inpatient, Physician - 06/12/2009 9:52 EDT Physician Inpatient MD ADMISSION ORDERABLES Sarah l Result documented in this encounter Visit Diagnoses Not on filedocumented in this encounter Care Teams System Administrator Relationship Specialty Start Date End Date Rubi Fernandez MD [address] [place], [place] [address] [place] [address] PCP - General 04/16/09 06/06/20 documented as of this encounter
--- OUTSIDE RECORDS SUMMARY | 2024-09-01 11:45 | XMS_ITS | Encounter Summary ---
Author Organization [facility] Address [address] [place] [address] Care Team Providers Care Real Estate Rental Agent Name Role Phone Rubi Fernandez MD Primary Care Provider [phone] Erin Velez NP Primary Care Provider [phone] Encounter Details Date Type Department Care Team (Late st Contact Info) Description 04/17/2010 Documentation Visit [facility] Bariatric Surgery [facility] [address] [place], [place] [address] Adrienne Yi, FACING GRINDER [address] [address] Social History Tobacco Use Types Packs/Day Years [...] on filedocumented in this encounter Care Teams Real Estate Rental Agent Relationship Specialty Start Date End Date Rubi Fernandez MD [address] [place] [address] [address] [place] [phone] PCP - General 04/16/09 06/06/20 Erin Velez NP [address] [place] [address] [address] [place] [phone] PCP - General 06/07/20 documented as of this encounter
--- OUTSIDE RECORDS SUMMARY | 2024-09-01 11:45 | XMS_ITS | Encounter Summary ---
Author Organization [facility] Address [address] [place] [address] Care Team Providers Care Demolitionist Name Role Phone Rubi Fernandez MD Primary Care Provider [phone] Reason for Visit * Reason Comments New Patient Visit SVT- had a recent EK G Encounter Details Date Type Department Care Team (Late st Contact Info) Description 08/07/2011 15:00 EST Office Visit [facility] Cardiology - [place] [address] Lloyd Hernandes MD [address] [facility], Level [address] [place] [address] SVT (supraventricular tachycardia) ([facility]) (Primary Dx) Social History Tobacco Use Types Packs/Day Years Used Date Smoking Tobacco: Never Assessed Comments Unknown Sex and Gender Information Value Date Recorded Sex Assigned at Not on file Legal Sex Female 18:12 EST Gender Identity Not on file Sexual Orientation Not on file documented as of this encounter Last Filed Vital Signs Vital Sign Reading Time Taken Comments Blood Pressure 126/80 08/07/2011 1446 EST Pulse 72 08/07/2011 1446 EST Temperature - - Respiratory Rate - - Oxygen Saturation - - Inhaled Oxygen Concentration - - Weight 88 kg (194 lb) 08/07/2011 1446 EST Height - - Body Mass Index - - documented in this encounter Ordered Prescriptions Prescription Sig Dispense Quantity Refills Last Filled Start Date End Date DILTiazem (CARDIZEM CD) 180 mg ER capsule Take 1 Cap by mouth daily. 30 Cap 5 08/07/2011 09/28/2011 documented in this encounter Progress Notes * Lloyd Hernandes MD - 08/07/2011 1618 EST Subjective: Patient ID: Silvia Shirley is an 41 y.o. female. Chief Complaint Patient presents with ??? New Patient Visit SVT- had a recent EKG Asked to evaluate for SVT by Dr. Fernandez [facility] Silvia Shirley is a pleasant 41-year-old woman with a long history of supraventricular tachycardia. She underwent attempted catheter ablation at [facility] in 2003. Unfortunately, the procedure resulted in [...] not have any of the records from [facility] to know if the aortic perforation [...] echo. PMH: SVT S/p attempted ablation at [facility], S/p cardiac / aortic perforation and open chest repair gerd Soc: no cigs, occ etoh, lives in [place] All: nkda Social History Substance Use Topics ??? Smoking status: Not on file ??? Smokeless tobacco: Not on file ??? Alcohol Use: Not on file Current Outpatient Prescriptions on File Prior to Visit Medication Sig Dispense Refill ??? furosemide (LASIX) 40 mg tablet Take 40 mg by mouth daily. No Known Allergies ROS - See HPI Pertinent positives listed in HPI, all other systems reviewed and are negative Objective: BP 126/80 Pulse 72 Wt 87.998 kg (194 lb) Physical Exam Gen: a/o x 3 HEENT: PERRL, EOMI NECK: NO JVD, No adenopathy Lungs: Clear bilaterally CV: RRR with normal S1s2, pmi non displaced ABD: Soft, NT, Bs + EXT: no edema PULSES: 2+ bilat, DP/PT Neuro: NO focal deficits Musc: Normal tone Assessment: Symptomatic SVT. She would be a good candidate for repeat ablation. I will try to obtain the records from [facility] to ascertain the nature of the complication. We spent some time discussing sVT ablation and the potential complications of left sided approach. With intracardiac ultrasound, trans-septal approach has become more safe, with regards to the perforation risk. She can try long acting dilt at 180/day to see if this helps We would otherwise try to get her scheduled after the holidays. Plan: Silvia was seen today for new patient visit. Diagnoses and associated orders for this visit: Svt (supraventricular tachycardia) - CARDIAC ABLATION PROCEDURE Other Orders - POTASSIUM ORAL; Take 20 mg by mouth daily. - DILTiazem (CARDIZEM CD) 180 mg ER capsule; Take 1 Cap by mouth daily. as above documented in this encounter Plan of Treatment Not on file documented as of this encounter Procedures Procedure Name Priority Date/Time Associated Diagnosis Comments CARDIAC ABLATION PROCEDURE Routine 09/28/2011 13:46 EST SVT (supraventricular tachycardia) (CMS-HCC) documented in this encounter Results * CARDIAC ABLATION PROCEDURE (09/28/2011 13:46 EST) Anatomical Region Laterality Modality Other 09/28/2011 13:4 6 EST Narrative 09/28/2011 13:46 EST See Notes Tab. Procedure Note 10/14/2011 See Notes Tab. us Lloyd Hernandes MD CARDIAC EP ORDERABLES Fi nal Result documented in this encounter Visit Diagnoses Diagnosis SVT (supraventricular tachycardia) ([facility])- Primary Other specified cardiac dysrhythmias documented in this encounter Discontinued Medications Medication Sig Discontinue Reason Start Date End Da te spironolactone (ALDACTONE) 50 mg tablet Take 50 mg by mouth daily. Discontinued by another clinician 08/07/2011 diltiazem (CARDIZEM) 60 mg tablet Take 60 mg by mouth as needed. 08/07/2011 documented as of this encounter Historical Medications * This list may reflect changes made after this encounter. POTASSIUM ORAL Take 20 mg by mouth daily. added in this encounter Care Teams Demolitionist Relationship Specialty Start Date End Date Rubi Fernandez MD [address] [place] [address] PCP - General 04/16/09 06/06/20 documented as of this encounter
--- OUTSIDE RECORDS SUMMARY | 2024-09-01 11:45 | XMS_ITS | Encounter Summary ---
Author Organization [facility] Address [address] [place] [address] Care Team Providers Care Coremaker Supervisor Name Role Phone Rubi Fernnadez MD Primary Care Provider [phone] Encounter Details Date Type Department Care Team (Late st Contact Info) Description 10/22/2009 Abstract [facility] Bariatric Surgery [facility] [address] [place] [address] Rubi Fernandez MD [address] [place] [address] Social History Tobacco Use Types [...] on filedocumented in this encounter Care Teams Coremaker Supervisor Relationship Specialty Start Date End Date Rubi Fernandez MD [address] [place] [phone] PCP - General 04/16/09 06/06/20 documented as of this encounter
--- OUTSIDE RECORDS SUMMARY | 2024-09-01 11:45 | XMS_ITS | Encounter Summary ---
Author Organization [facility] Address [address] [place] [address] Care Team Providers Care Front Sight Attacher Name Role Phone Rubi Fernandez MD Primary Care Provider [phone] Encounter Details Date Type Department Care Team (Late st Contact Info) Description 08/17/2011 Results Only [facility] Laboratory Services - [facility] [address] [place], [place] [address] Rupinder Leach, [facility] [address] [place] [address] [place] [address] Social History Tobacco Use Types [...] Diagnosis Comments PAP TEST- RESULT ONLY Routine 08/17/2011 0:00 EST documented in this encounter Results * PAP TEST- RESULT ONLY (08/17/2011 0:00 EST) Pathology Report: CYTOPATHOLOGY REPORT Reports generated via electronic interface contain original data; however they are lacking the format of the original report. Caution should be taken when reading/interpreti ng unformatted reports. Name: ? CALL, SILVIA Ramirez ? Accession #: ? [id number] ? : ? 1970 (Age: 41) ??F ?Collect Date: ? 08/17/2011 ? Location: ? [facility] ? Receive Date: ? 08/18/2011 ? Provider: RUPINDER LEACH PIGMENT SUPPLIER Copy to: RUBI FERNANDEZ MD ? Final Report SPECIMEN ADEQUACY ? Satisfactory for Evaluation - transformation zone component present GENERAL CATEGORIZATION ? Negative for Intraepithelial Lesion or Malignancy ?? Last Menstural Period: 07/31/2011 Specimen/Source: ??Pap Test, Cervix/Endocervix, ThinPrep Imaging System with manual evaluation Document reviewed and electronically signed by: ? Florence Rand, [facility](ASCP) ? Report ??Date: 08/20/2011 13:46 HPV with Pap Test ? Date Ordered: ? 08/20/2011 ? Status: ?? Signed Out ?Date Complete: ? 08/24/2011 ? By: ??System Interface ? Date Reported: ? 08/24/2011 ? Interpretation RESULT: Negative for HPV types 16, 18, 31, 33, 35, 39, 45, 51, 52, 56, 58, 59, and 68. Comments Document reviewed and electronically signed by: ? System Interface ? Report date: 08/24/2011 By the signature above, the attending physician certifies that he/she has personally conducted a gross and/or microscopic examination of the described specimens and rendered or confirmed the above diagnosis. End of Report [facility] 08/17/2011 08/18/2011 us Rupinder Leach PIGMENT SUPPLIER PATHOLOGY ORDERABLES Final R esult Performing Organization Address City/State/[place] Co de Phone Number [facility] [address] [place] [address] documented in this encounter Visit Diagnoses Not on filedocumented in this encounter Care Teams Front Sight Attacher Relationship Specialty Start Date End Date Rubi Fernandez MD [address] [place] [address] PCP - General 04/16/09 06/06/20 documented as of this encounter
--- OUTSIDE RECORDS SUMMARY | 2024-09-01 11:45 | XMS_ITS | Encounter Summary ---
Author Organization [facility] Address [address] [place] [address] Care Team Providers Care Flexographic Printing Machinist Name Role Phone Rubi Fernandez MD Primary Care Provider [phone] Encounter Details Date Type Department Care Team (Late st Contact Info) Description 03/10/2017 Results Only [facility] [phone] Heide De La Cruz MD [facility] [place], [place] [address] Social History Tobacco Use Types Packs/Day Years [...] Date/Time Associated Diagnosis Comments SURGICAL PATHOLOGY Routine 03/10/2017 18 :43 EDT documented in this encounter Results * SURGICAL PATHOLOGY (03/10/2017 18:43 EDT) Pathology Report: SURGICAL PATHOLOGY REPORT Reports generated via electronic interface contain original data; however they are lacking the format of the original report. Caution should be taken when reading/interpret ing unformatted reports. Name: ? CALL, SILVIA Ramirez ? Accession #: ? [id number] ? : ? 1970 (Age: 46) ??F ? Collect Date: ? 03/10/2017 ? Location: ? [facility] ? Receive Date: ? 03/10/2017 ? Provider: HEIDE DE LA CRUZ MD Copy to: RUBI FERNANDEZ MD ? Final Pathologic Diagnosis: UTERUS, CERVIX, BILATERAL FALLOPIAN TUBES, HYSTERECTOMY AND BILATERAL SALPINGECTOMY: - ??Cervix: ? - Benign papillary endocervicitis. - ??Endometrium: ? - Secretory endometrium. - ??Myometrium: ? - Adenomyosis. ? - Intramural and subserosal leiomyomata (3.5 cm in greatest dimension). - ??Serosa: ? - No specific pathologic features. - ??Left fallopian tube: ? - No specific pathologic features. - ??Right fallopian tube: ? - No specific pathologic features. Document reviewed and electronically signed by: Quang Norwood MD Report ??Date: 03/12/2017 16:56 By the signature above, the attending physician certifies that he/she has personally conducted a gross and/or microscopic examination of the described specimens and rendered or confirmed the above diagnosis. Specimen(s) Received: Uterus, L tube, R tube (separate) Clinical History: Abnormal uterine bleeding Gross Description: ? Received in formalin labelled with proper patient identification (initials C, L) and uterus, left tube, right tube (separate) is a partially opened uterus and cervix (230 g, 13.2 cm cervix to fundus x 8.5 cm cornu to cornu x 7.2 cm anterior to posterior) with attached left fimbriated fallopian tube (7.5 cm in length x 0.5 cm in diameter) and detached right fimbriated fallopian tube (4.2 cm in length x 0.6 cm in diameter). ? The uterine serosa is moeller-pink, smooth, and dull. The ectocervix is moeller-purple with petechial hemorrhage and a patent slit-like os. The ectocervix is pink-purple, rubbery, and granular, with a slightly distorted herringbone pattern. The endometrium is moeller-brown and shaggy, with an average thickness of 0.3-0.4 cm. The myometrium is moeller-pink and trabeculated with multiple subserosal and intramural whorled nodules, ranging from 0.3-3.5 cm in greatest dimension. No areas of hemorrhage or necrosis are identified. The fallopian tubes are regalado-purple and hyperemic, each with a pinpoint lumen. Talent Acquisition Assistant sections are submitted as follows: BLOCK HAMMONDS 1- ??anterior cervix 2- ??anterior lower uterine segment 3- ??anterior endomyometrium 4- ??posterior cervix 5- ??posterior lower uterine segment 6- ??posterior endomyometrium 7-9- ??whorled nodules 10- ??right fimbria, bisected 11- ??right fallopian tube 12- ??left fimbria, bisected 13- ??left fallopian tube YOMAIRA Arvizu (ASCP) 03/11/2017 2:37 PM End of Report [facility] 03/10/2017 18:4 3 EDT 03/10/2017 18:43 EDT us Heide De La Cruz MD PATHOLOGY ORDERABLES Final Res ult [facility] [address] [place] [address] documented in this encounter Visit Diagnoses Not on filedocumented in this encounter Care Teams Flexographic Printing Machinist Relationship Specialty Start Date End Date Rubi Fernandez MD [address] [place] [address] [address] [place] [address] PCP - General 04/16/09 06/06/20 documented as of this encounter
--- OUTSIDE RECORDS SUMMARY | 2024-09-01 11:45 | XMS_ITS | Encounter Summary ---
Author Organization [facility] Address [address] [place] [address] Care Team Providers Care Livestock Exhibitor Name Role Phone Rubi Fernandez MD Primary Care Provider [phone] Encounter Details Date Type Department Care Team (Late st Contact Info) Description 06/30/2004 Results Only [facility] conversion [address] [place] [address] Quinten Howard MD [address] [place] [address] Social History Tobacco Use Types Packs/Day Years [...] Date/Time Associated Diagnosis Comments SURGICAL PATHOLOGY Routine 06/30/2004 0:00 EDT documented in this encounter Results * SURGICAL PATHOLOGY (06/30/2004 0:00 EDT) Pathology Report: SURGICAL PATHOLOGY REPORT Reports generated via electronic interface contain original data; however they are lacking the format of the original report. Caution should be taken when reading/interpreti ng unformatted reports. Name: ? FAUSTINOSILVIA ? Accession #: ? [id number] ? : ? 1970 (Age: 34) ??F ? Collect Date: ? 06/30/2004 ? Location: ? [facility] ? Receive Date: ? 06/30/2004 ? Provider: QUINTEN HOWARD MD Copy to: SAIMA COLÓN MD ? Final Pathologic Diagnosis: ? Appendix, appendectomy: - Acute appendicitis and periappendicitis. Document reviewed and electronically signed by: LAUREL MERA MD Report ??Date: 07/01/2004 16:19 By the signature above, the attending physician certifies that he/she has personally conducted a gross and/or microscopic examination of the described specimens and rendered or confirmed the above diagnosis. Specimen(s) Received: ? Appendix Clinical History: ? Appendicitis Gross Description: ? Received in formalin labelled Call and #1 ??appendix is a vermiform appendix measuring 9.5 cm in length and has a varying diameter of 1.1 to 1.5 cm. The external surface is moeller-dangelo, smooth and glistening, and has a focus of hyperemia located at the dilated portion near the distal tip of the appendix. Sectioning demonstrates a moeller-pink to white 0.4 to 0.5 cm thick appendiceal wall with a centrally located, slightly dilated lumen filled with fecal material. ??No perforation is identified grossly. ??There is a moderate amount of attached mesoappendix. ??A perpendicular section of the distal third, a central cross section, and the resection margin adjacent to the staple line (black inked) are submitted in one cassette. ??(Dr. Dean)/[facility] End of Report [facility] 06/30/2004 06/30/2004 14: 55 EDT us Quinten Howard MD PATHOLOGY ORDERABLES Final Result Performing Organization Address City/State/[facility] Co de Phone Number [facility] [address] [place] [address] documented in this encounter Visit Diagnoses Not on filedocumented in this encounter Care Teams Livestock Exhibitor Relationship Specialty Start Date End Date Rubi Fernandez MD [address] [place] [address] PCP - General 04/16/09 06/06/20 documented as of this encounter
--- OUTSIDE RECORDS SUMMARY | 2024-09-01 11:45 | XMS_ITS | Clinical Summary ---
Author Organization [facility] Address [address] [place] [address] Care Team Providers Care Lead Developer Name Role Phone Erin Velez JESICA Primary Care Provider [phone] Allergies Active Allergy Reactions Criticality Noted Date Comments Diltiazem Other (See Comments) 09/28/2011 Josephine weak-pulse very slow No Known Drug Allergies 09/28/2011 Medications furosemide (LASIX) 40 mg tablet Take 40 mg by mouth daily. Active POTASSIUM ORAL Take 20 mg by mouth daily. Active Active Problems Problem Noted Date Diagnosed Date Supraventricular tachycardia ([facility]) 2 Encounters Date Type Department Care Team Description 08/11/[address] [facility] Pathology & Laboratory [address] [address] Outr Resulting Lab, Provider 08/11/[address] [facility] Pathology & Laboratory [address] [address] Outr Resulting Lab, Provider from Last 3 Months Surgical History Surgery Date Site/Laterality Comments CHOLECYSTECTOMY APPENDECTOMY AORTA SURGERY 2003 repair post ablation tear in [place] Medical History Medical History Date Comments SVT (supraventricular tachycardia) ([facility]) Hypertension Blood transfusion 2003 CHF (congestive heart failure) ([facility]) 2006 was told CHF Social History Tobacco Use Types Packs/Day Years [...] on file Sexual Orientation Not on file Obstetrics History Last Filed Vital Signs Vital Sign Reading [...] 29.76 10/12/2011 1254 EST Plan of Treatment Health Maintenance Due Date Last Done Comments Hepatitis B Vaccine (1 of 3 - 19+ 3-dose series) 03/25 COVID-19 Vaccine (2023- season) 2024 Hepatitis C Screen Completed 08/11/2024 Procedures Procedure Name Priority Date/Time Associated Diagnosis [...] C Antibody Negative Negative 08/11/2024 22:44 EST [facility] Blood VENOUS BLOOD / Unknown 08/11/2024 13:22 EST 08/11/2024 21:08 EST us Provider Outr Resulting Lab CHEMISTRY & BLOOD GA S ORDERABLES Final Result Performing Organization Address [facility]/ZIP Co de Phone Number [facility] [address] [place], [place] [id number] * HEPATITIS B PROFILE (08/11/2024 13:22 EST) Hep B Surface Ag Negative Negative 08/11/20 22:47 [facility] Hep B Surface Ab, Quantitative <3.1 See Note mIU/mL 08/11/2024 22:47 [facility] Comment: Reference Range for Hep B Surface Ab, Quant: Positive: >= 10.0 mIU/mL Negative: ??< 10.0 mIU/mL Patient is presumed to not be immune to infection with Hepatitis B Virus. Hep B Surface Ab, Qualitative Negative See Note 08/11/2024 22:47 [facility] Comment: Reference Range for Hep B Surface Ab, Qual: Unvaccinated: ??Negative Vaccinated: ??Positive Hepatitis B Core Ab, Total Negative Negative 08/11/2024 22:47 [facility] Blood VENOUS BLOOD / Unknown 08/11/2024 13:22 EST 08/11/2024 21:08 EST us Provider Outr Resulting Lab CHEMISTRY & BLOOD GA S ORDERABLES Final Result Performing Organization Address [facility] Co de Phone Number [facility] [address] [place], [place] [address] * HIV 1/2 ANTIGEN AND ANTIBODY, 4TH GENERATION (08/11/2024 13:22 EST) HIV 1 and 2 Antibody/p24 Antigen, 4th Generation Negative Negative 08/11/2024 23:03 EST [facility] Comment:If acute HIV-1 infec tion is suspected in a high risk patient, submit plasma specimen for HIV-1 RNA quantitation test. Blood VENOUS BLOOD / Unknown 08/11/2024 13:22 EST 08/11/2024 21:08 EST Narrative [facility] - 08/11/2024 23:03 EST Fourth Generation assay performed on the Siemens Uni-Controlaur XPT. us Provider Outr Resulting Lab IMMUNOLOGY AND SEROL OGY ORDERABLES Final Result [facility] [address] [place] [address] from Last 3 Months Insurance [facility] Advance Directives For more information, please contact: [phone] * Full Code (Latest Code Status on File) Date Activated Date Inactivated Comments 09/28/2011 14:17 09/28/2011 19:10 Care Teams Lead Developer Relationship Specialty Start Date End Date Erin Velez NP [address] [place] [address] [address] [place] [address] PCP - General 06/07/20
--- OUTSIDE RECORDS SUMMARY | 2024-09-01 11:45 | XMS_ITS | Encounter Summary ---
Author Organization [facility] Address [address] [place] [address] Care Team Providers Care Mat Roller Name Role Phone Rubi Fernandez MD Primary Care Provider [phone] Encounter Details Date Type Department Care Team (Latest Contact Info) Description 01/13/2017 14:39 EDT - 01/13/2017 23:59 EDT Hospital Encounter [address] [address] Unknown, Provider, Discharge Disposition: Home or Self [...] Code Departure Means Destination Home or Self Fpc documented in this encounter Plan of Treatment Not on file documented as of this encounter Visit Diagnoses Not on filedocumented in this encounter Care Teams Mat Roller Relationship Specialty Start Date End Date Rubi Fernandez MD [address] [place] [address] [address] [place] [address] PCP - General 04/16/09 06/06/20 documented as of this encounter
--- OUTSIDE RECORDS SUMMARY | 2024-09-01 11:45 | XMS_ITS | Encounter Summary ---
Author Organization [facility] Address [address] [place] [address] Care Team Providers Care Textile Scrap Salvager Name Role Phone UriahErin alonzo JESICA Primary Care Provider [phone] Encounter Details Date Type Department Care Team (Late st Contact Info) Description 08/11/2024 Lab Requisition [facility] Pathology & Laboratory Medicine - [facility] [address] [place] [address] Outr Resulting Lab, Provider Social History Tobacco [...] B PROFILE Routine 08/11/2024 1 3:22 EST documented in this encounter Results * HEPATITIS C AB W REFLEX TO HCV RNA BY PCR (08/11/2024 13:22 EST) Hep C Antibody Negative Negative 08/11/2024 22:44 EST [facility] Blood VENOUS BLOOD / Unknown 08/11/2024 13:22 EST 08/11/2024 21:08 EST us Provider Outr Resulting Lab CHEMISTRY & BLOOD GA S ORDERABLES Final Result Performing Organization Address City/[facility]/ZIP Co de Phone Number [facility] [address] [place] [address] * HEPATITIS B PROFILE (08/11/2024 13:22 EST) Hep B Surface Ag Negative Negative 08/11/20 22:47 [facility] Hep B Surface Ab, Quantitative <3.1 See Note mIU/mL 08/11/2024 22:47 [facility] Comment: Reference Range for Hep B Surface Ab, Quant: Positive: >= 10.0 mIU/mL Negative: ??< 10.0 mIU/mL Patient is presumed to not be immune to infection with Hepatitis B Virus. Hep B Surface Ab, Qualitative Negative See Note 08/11/2024 22:47 [facility] Comment: Reference Range for Hep B Surface Ab, Qual: Unvaccinated: ??Negative Vaccinated: ??Positive Hepatitis B Core Ab, Total Negative Negative 08/11/2024 22:47 [facility] Blood VENOUS BLOOD / Unknown 08/11/2024 13:22 EST 08/11/2024 21:08 EST us Provider Outr Resulting Lab CHEMISTRY & BLOOD GA S ORDERABLES Final Result Performing Organization Address City/[facility]/ZIP Co de Phone Number [facility] [address] [place] [address] documented in this encounter Visit Diagnoses Not on filedocumented in this encounter Care Teams Textile Scrap Salvager Relationship Specialty Start Date End Date Erin Velez NP [address] [place] [address] [address] [place] [address] PCP - General 06/07/20 documented as of this encounter
--- OUTSIDE RECORDS SUMMARY | 2024-09-01 11:45 | XMS_ITS | Encounter Summary ---
Author Organization [facility] Address [address] [place] [address] Care Team Providers Care Plug Sorter Name Role Phone Rubi Fernandez MD Primary Care Provider [phone] Encounter Details Date Type Department Care Team (Late st Contact Info) Description 11/01/2005 Office Visit [facility] - [facility] conversion [address] [place] [address] Tonny Lo MD [address] [facility], [address] [place] [address] Social History Tobacco Use Types Packs/Day Years Used Date Smoking Tobacco: Never Assessed Comments Unknown Sex and Gender Information Value Date Recorded Sex Assigned at Not on file Legal Sex Female 18:12 EST Gender Identity Not on file Sexual Orientation Not on file documented as of this encounter Progress Notes * Tonny Lo MD - 11/20/2009 2017 EST Department - Physician Summary Registration Date/Time: 11/01/2005 0:07 Time Seen: 0011; upon arrival. HISTORY OF PRESENT ILLNESS Chief Complaint: PALPITATIONS. This started today 6 hours ago and is still present. Onset during rest. It is described as a fast heart beat. Modifying factors (did not resolve with valsalva maneuver). No chest pain or discomfort, difficulty breathing, sweating episodes or fainting episodes. No dizziness. The patient has had similar symptoms many times previously. Not recently seen/assessed. REVIEW OF SYSTEMS The patient has had a cough. No fever, chills, orthopnea, calf pain or enlarged lymph nodes. No headache, sore throat, blurred vision, nausea or abdominal pain. No black stools, difficulty with urination or skin rash. Recent URI. PAST HISTORY See nurses notes. Heart rhythm problems. 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 Medications: See nurses notes. Allergies: See nurses notes. SOCIAL HISTORY Residence: lives out of area; . Visiting locally. The patient lives with spouse. Has good social support. ADDITIONAL NOTES The nursing notes have been reviewed. PHYSICAL EXAM Appearance: Alert. No acute distress. Vital Signs: Have been reviewed(165 - P). Eyes: Pupils equal, round and reactive to light. Eyes normal inspection. ENT: Pharynx normal. Neck: Normal inspection. Neck supple. CVS: Tachycardia. Heart sounds normal. Pulses normal. Well healed sternotomy incision. Respiratory: No respiratory distress. Breath sounds normal. Chest nontender. Abdomen: Abdomen soft and nontender. No organomegaly. Back: Normal external inspection. Skin: Normal skin color. Skin warm and dry. No rash. Extremities: Extremities exhibit normal ROM. No lower extremity edema. Neuro: Oriented X 3. No motor deficit. LABS, X-RAYS, AND EKG Rhythm Strip #1: Paroxysmal supra-ventricular tachycardia narrow-complex . (or sinus tach). Regularrhythm. Narrow QRS complexes. No ectopy. Conduction normal. Non-specific ST segment / T-wave abnormalities. The rhythm strip was interpreted by me. Rhythm Strip #2: Normal sinus rhythm. Regular rhythm. Narrow QRS complexes. No ectopy. Conduction normal. Normal ST segments and T waves. The rhythm strip was interpreted by me. PROGRESS AND PROCEDURES E.D. Course: Adenosine 6 mg IVP. Vital signs have been reviewed (165 - P). Evaluation after observation. The patient's symptoms are unchanged. Physical exam findings are unchanged. Adenosine 12 mg IVP. Evaluation after observation, IV fluids and IV medication. The patient's symptoms are unchanged. Physical exam findings are unchanged. Diltiazem 10 mg IVP. Evaluation after observation, IV fluids and IV medication. Symptoms better. No palpitations. Physical exam findings are improved. Alert. No acute distress. Normal heart rate and rhythm. . Patient/family counseled. Old medical records ordered. Old records unavailable. Above considerations are based on history, physical exam, past history, reassessment and EKG. Differential diagnosis wasdiscussed with patient and patient's spouse. Other considerations: palpitations unlikely due to ischemic heart disease. Disposition: Discharged home in improved condition. CLINICAL IMPRESSION Palpitations . INSTRUCTIONS Drink plenty of fluids. Warnings: GENERAL WARNINGS: Return or contact your physician immediately if your condition worsens or changesunexpectedly, if not improving as expected, or if other problems arise. Specifically return if pain, breathing difficulty or fever worsens. Follow-up: Follow up with your doctor as needed. Follow-up: RAYMOND PEACE MD, , [address], [address] [place] [address]. (Electronically signed by Tonny Lo M.D. 11/01/2005 5:57) Department - Nursing Summary Registration Date/Time: 11/01/2005 0:07 TRIAGE Initial Assessment Triage time 00:08 Nov 01 2005 . Acuity: LEVEL 2. BP: 117 / 84. HR: 164. RR: 16. Temp: 35.4 C (tympanic). Alert. No acute distress.--0011 Thompson Du R.N. Medications Lisinopril. Toprol. --0011 Thompson Du R.N. Allergies No known drug allergies. --0011 Thompson Du R.N. History Chief Complaint: PALPITATIONS. Onset- about 6 hours ago. Pain level now: 0/10. The patient has had mild difficulty breathing. No chest pain. Treatment PARKING ANALYST: None. PAST HX: Supraventricular tachycardia. OPEN HEART S/P ABLATION. SOCIAL HX: Occasional alcohol use. Nonsmoker. No drug use. No report of abuse. Arrived by private vehicle, arrived (FROM [place]). And accompanied by spouse. Historian: patient. --0011 Thompson Vogt, R.N. PAST HX. PHYSICAL ASSESSMENT Ambulatory to room. Alert. Appears in no acute distress. Oriented X 3. Respirations not labored. --0011 Thompson Du R.N. NURSING PROGRESS NOTES Progress Oxygen administered by nasal cannula at 2 liters. voice professor, pulse oximeter and NIBP monitor placed on patient; jet ski mechanic - Lead II; monitor alarms on. 12-lead EKG was ordered. Patient gowned. Head ofbed elevated. Call light placed in reach. Side rails up x 1. Bed placed in lowest position. Brakes of bed on. Spouse at bedside. Patient ready for evaluation -. ED physician at the patient's bedside (MD LO FOR EVAL). --0018 Thompson Du R.N. HR: 166. O2 saturation: 100% on O2 (nasal cannula at 2 liters/minute). Cardiac rhythm: narrow complex supraventricular tachycardia. --0018 Thompson Du R.N. 12-lead EKG was ordered, performed by a tech and shown to the ED physician (). --0026 Barrett Ga ( Dr Delcid at bedside). --0032 June Ga. Blood samples drawn by nurse and sent to lab. ( all tubes sent to lab for hold). --0033 June Ga. ADENOSINE 6 mg rapid IVP. IV patency established. IV site checked: no pain, redness, or swelling. IV flushed thoroughly pre- and post-medication administration. . --0043 Prisca Horan R.N. ( Adenosine given by Monica with Dr Delcid present). --0046 Prisca Horan R.N. BP: 121 / 86. HR: 165. RR: 22. O2 saturation: 98% (nasal cannula at 2 liters/minute). --0046 Prisca Horan R.N. ADENOSINE 6 mg rapid IVP. IV patency established. IV site checked: no pain, redness, or swelling. IV flushed thoroughly pre- and post-medication administration. . --004 Prisca Horan R.N. BP: 115 / 81. HR: 167. RR: 18. O2 saturation: 98% (nasal cannula at 2 liters/minute).--0051 Prisca Horan R.N. ( CORRECTION: 2nd dose of Adenosine 12mg given by Monica with Dr Delcid present. ). --0106Prisca Horan R.N. BP: 118 / 87. HR: 149. RR: 18. O2 saturation: 99% room air. --0116 Prisca Horan R.N. DILTIAZEM 10 mg diluted with 5 mL slow IVP over 5 minutes. IV patency established. IV site checked:no pain, redness, or swelling. IV flushed thoroughly pre- and post-medication administration. . --011 Prisca Horan R.N. BP: 120 / 82. HR: 77 regular. RR: 18. O2 saturation: 99% room air. --012 Prisca Horan R.N. ( Dr Lo at bedside. ). --012 Prisca Horan R.N. IV / I&O Flowsheet IV site #1: location left antecubital space. Started: 18g angiocath; aseptic technique used; good blood return noted. Saline lock in place. --003 Jose Ericka, E.M.T. IV fluid started - #1 bag NS. Rate - wide open. --003 Josejennifer Barnett, E.M.T. IV fluid bag #1 discontinued (500 mL absorbed). IV site discontinued: IV catheter intact, dressing applied. --207 Gloria Bañuelos R.N. DISPOSITION / DISCHARGE BP: 108 / 71. HR: 82 NSR. RR: 18. Patient reports pain level on departure as 0/10. Condition at departure: improved and stable. No learning barriers present. Discharge instructions reviewed withthe patient and spouse. Patient and spouse verbalized understanding. Written instructions provided in Upper Sorbian. The patient was discharged home and accompanied by spouse. The patient left the Emergency Department ambulatory and via private vehicle. Patient driving. --207 Kathi Sharma R.N. E.M.TJae Bañuelos R.N. Locked/Released at 11/01/2005 2:08 by Gloria Bañuelos R.N. documented in this encounter Plan of Treatment Not on file documented as of this encounter Visit Diagnoses Not on filedocumented in this encounter Care Teams Plug Sorter Relationship Specialty Start Date End Date Rubi Fernandez MD [address] [place] [address] [address] [place] [address] PCP - General 04/16/09 06/06/20 documented as of this encounter
--- OUTSIDE RECORDS SUMMARY | 2024-09-01 11:45 | XMS_ITS | Encounter Summary ---
Author Organization [facility] Address [address] [place] [address] Care Team Providers Care Lumber Stacker Name Role Phone Rubi Fernandez MD Primary Care Provider [phone] Encounter Details Date Type Department Care Team (Late st Contact Info) Description 01/31/[address] [facility] - Maple conversion [address] [place] [address] Rupinder Leach, [facility] [address] [place] [address] [place] [address] Social History Tobacco Use Types [...] Procedure Name Priority Date/Time Associated Diagnosis Comments CYTOPATHOLOGY Routine 01/31/2007 0:00 EDT documented in this encounter Results * CYTOPATHOLOGY (01/31/2007 0:00 EDT) Pathology Report: CYTOPATHOLOGY REPORT Reports generated via electronic interface contain original data; however they are lacking the format of the original report. Caution should be taken when reading/interpreti ng unformatted reports. Name: ? CALL, SILVIA Ramirez ? Accession #: ? [id number] : ? 1970 (Age: 36) ??F ?Collect Date: ? 01/31/2007 Location: ? [facility] ? Receive Date: ? 02/02/2007 Provider: ?RUPINDER HERRERAP Copy to: ? Specimen/Source: ?ThinPrep Pap Test, Cervix/Endocervix, processed on [employer] ThinPrep Imaging System, with manual evaluation Last Menstrual Period: ? 01/14/07 Previous Gynecologic Pathology: ? ASC-US: 1994 Other: ? Additional clinical information: Normal pap 05/15/05 HPVA - HPV testing requested if ASC-US on the current ThinPrep Pap test. ? SPECIMEN ADEQUACY ? Satisfactory for Evaluation - transformation zone component present GENERAL CATEGORIZATION ? Negative for Intraepithelial Lesion or Malignancy ? Document reviewed and electronically signed by: ? KERMIT Stubbs(ASCP) ? Report Date: ??02/04/2007 10:38 End of Report JUAN C TRINIDAD 01/31/2007 02/02/2007 us Rupinder Leach DOCUMENT CONTROLLER PATHOLOGY ORDERABLES Final R esult JUAN C [facility] [address] [place] [address] documented in this encounter Visit Diagnoses Not on filedocumented in this encounter Care Teams Lumber Stacker Relationship Specialty Start Date End Date Rubi Fernandez MD [address] [facility] [facility] [address] [place] [phone] PCP - General 04/16/09 06/06/20 documented as of this encounter
--- OUTSIDE RECORDS SUMMARY | 2024-09-01 11:45 | XMS_ITS | Encounter Summary ---
Author Organization [facility] Address [address] [place] [address] Care Team Providers Care Cuff Folder Name Role Phone Rubi Fernandez MD Primary Care Provider [phone] Encounter Details Date Type Department Care Team (Late st Contact Info) Description 05/15/2005 Results Only [facility] - [place] conversion [address] [place] [address] Rupinder Leach, [facility] [address] [place] [address] [place] [address] Social History Tobacco Use Types [...] Priority Date/Time Associated Diagnosis Comments CYTOPATHOLOGY Routine 05/15/2005 0:00 EDT documented in this encounter Results * CYTOPATHOLOGY (05/15/2005 0:00 EDT) Pathology Report: CYTOPATHOLOGY REPORT Reports generated via electronic interface contain original data; however they are lacking the format of the original report. Caution should be taken when reading/interpreti ng unformatted reports. Name: ? CALL, SILVIA Ramirez ? Accession #: ? [id number] : ? 1970 (Age: 35) ??F ?Collect Date: ? 05/15/2005 Location: ? [facility] ? Receive Date: ? 05/19/2005 Provider: ?RUPINDER HERRERAP Copy to: ? Specimen/Source: ?ThinPrep Pap Test, Cervix/Endocervix, processed on [employer] MediaPrep Imaging System, with manual evaluation Last Menstrual Period: ? 5 Previous Gynecologic Pathology: ? ASC-US: 1994 Treatment History: ? Cryotherapy: paps negative since Other: ? HPVA - HPV testing requested if ASC-US on the current ThinPrep Pap test. ? SPECIMEN ADEQUACY ? Satisfactory for Evaluation - transformation zone component present GENERAL CATEGORIZATION ? Negative for Intraepithelial Lesion or Malignancy ? Document reviewed and electronically signed by: ? KERMIT Stubbs(ASCP) ? Report Date: ??05/27/2005 10:41 End of Report JUAN C TRINIDAD 05/15/2005 05/19/2005 us Rupinder Leach LURER PATHOLOGY ORDERABLES Final R esult JUAN C [facility] [address] [place] [address] documented in this encounter Visit Diagnoses Not on filedocumented in this encounter Care Teams Cuff Folder Relationship Specialty Start Date End Date Rubi Fernandez MD [address] [place] [phone] PCP - General 04/16/09 06/06/20 documented as of this encounter
--- OUTSIDE RECORDS SUMMARY | 2024-09-01 11:45 | XMS_ITS | Encounter Summary ---
Author Organization [facility] Address [address] [place] [address] Care Team Providers Care Online Marketer Name Role Phone Rubi Fernandez MD Primary Care Provider [phone] Encounter Details Date Type Department Care Team (Late st Contact Info) Description 04/26/2009 Orders Only [facility] General Surgery - [facility] [address] [place], [place] [address] Lawrence Irby MD [address] [place] [phone] Social History Tobacco Use Types Packs/Day [...] Procedure Name Priority Date/Time Associated Diagnosis Comments FL UPPER GI SERIES AIR CONTRAST W/KUB 04/26/2009 9:25 EDT documented in this encounter Results * FL UPPERGI SERIES AIR CONTRAST W/KUB (04/26/2009 9:25 EDT) Anatomical Region Laterality Modality Other 04/26/2009 9:25 EDT 04/26/2009 16:57 EDT Narrative 04/26/2009 16:57 EDT FL UPPERGI SERIES AIR CONTRAST ??Apr 26, 2009 9:25:00 AM Clinical History/Comments: Morbid obesity. Comparison: None. Technique: Single and double-contrast views of the thoracic esophagus, stomach, duodenal bulb and sweep were obtained. Findings: Order Entry KUB is non specific. Study shows a normally distensible thoracic esophagus ??with a normal appearing mucosa. Gastroesophageal Reflux was elicited. ?? A small hiatal hernia was demonstrated. The stomach is normally distensible ??and shows normal appearing mucosa. The duodenal bulb and sweep are within normal limits. Impression: 1. Small hiatal hernia with gastroesophageal reflux. I have personally reviewed the images and the above interpretation and agree with the findings. Procedure Note Elyssa Klein MD / Elyssa Klein MD / Elyssa Klein MD - 04/26/2009 FL UPPERGI SERIES AIR CONTRAST Apr 26, 2009 9:25:00 AM Clinical History/Comments: Morbid obesity. Comparison: None. Technique: Single and double-contrast views of the thoracic esophagus, stomach, duodenal bulb and sweep were obtained. Findings: Order Entry KUB is non specific. Study shows a normally distensible thoracic esophagus with a normal appearing mucosa. Gastroesophageal Reflux was elicited. A small hiatal hernia was demonstrated. The stomach is normally distensible and shows normal appearing mucosa. The duodenal bulb and sweep are within normal limits. Impression: 1. Small hiatal hernia with gastroesophageal reflux. I have personally reviewed the images and the above interpretation and agree with the findings. Lawrence Irby MD IMG FLUOROSCOPY NALLELY MARIANO Final Result documented in this encounter Visit Diagnoses Not on filedocumented in this encounter Care Teams Online Marketer Relationship Specialty Start Date End Date Rubi Fernandez MD [address] [place] [address] [address] [place] [phone] PCP - General 04/16/09 06/06/20 documented as of this encounter
--- OUTSIDE RECORDS SUMMARY | 2024-09-01 11:45 | XMS_ITS | Encounter Summary ---
Author Organization [facility] Address [address] [place] [address] Care Team Providers Care Vice Principal Name Role Phone Rubi Fernandez MD Primary Care Provider [phone] Encounter Details Date Type Department Care Team (Late st Contact Info) Description 04/30/2000 Results Only [facility] - Maple conversion [address] [place] [address] Rupinder Leach, [facility] [address] [place] [address] [place] [address] Social History Tobacco Use Types [...] Priority Date/Time Associated Diagnosis Comments CYTOPATHOLOGY Routine 04/30/2000 0:00 EDT documented in this encounter Results * CYTOPATHOLOGY (04/30/2000 0:00 EDT) Pathology Report: CYTOPATHOLOGY REPORT Reports generated via electronic interface contain original data; however they are lacking the format of the original report. Caution should be taken when reading/interpreti ng unformatted reports. Name: ? CALL, SILVIA Ramirez ? Accession #: ? [id number] : ? 1970 (Age: 30) ??F ?Collect Date: ? 04/30/2000 Location: ? [facility] ? Receive Date: ? 05/04/2000 Provider: ?RUPINDER LEACH TELECOMMUNICATIONS SUPPORT Copy to: ? Specimen/Source: ?ThinPrep Pap Test, Cervix/Endocervix Last Menstrual Period: ? 04/11/00 Previous Gynecologic Pathology: ? ASC-US: 1994 Treatment History: ? Cryotherapy: 1994 Other: ? Additional clinical information: Normal paps since ? SPECIMEN ADEQUACY ? Satisfactory for evaluation. GENERAL CATEGORIZATION ? Within Normal Limits ? Document reviewed and electronically signed by: ? KERMIT Saldivar(ASCP) ? Report Date: ??05/05/2000 10:53 End of Report JUAN C TRINIDAD 04/30/2000 05/04/2000 us Rupinder Leach TELECOMMUNICATIONS SUPPORT PATHOLOGY ORDERABLES Final R esult JUAN C [facility] [address] [place] [address] documented in this encounter Visit Diagnoses Not on filedocumented in this encounter Care Teams Vice Principal Relationship Specialty Start Date End Date Rubi Fernandez MD [address] [facility] [facility] [address] [address] [place] [address] PCP - General 04/16/09 06/06/20 documented as of this encounter
--- OUTSIDE RECORDS SUMMARY | 2024-09-01 11:45 | XMS_ITS | Encounter Summary ---
Author Organization [facility] Address [address] [place] [address] Care Team Providers Care Bag Sewer Name Role Phone Rubi Fernandez MD Primary Care Provider [phone] Encounter Details Date Type Department Care Team (Late st Contact Info) Description 08/14/2003 Results Only [facility] - Maple conversion [address] [place] [address] Rupinder Leach, [facility] [address] [place] [address] [place] [address] Social History Tobacco Use Types [...] Priority Date/Time Associated Diagnosis Comments CYTOPATHOLOGY Routine 08/14/2003 0:00 EST documented in this encounter Results * CYTOPATHOLOGY (08/14/2003 0:00 EST) Pathology Report: CYTOPATHOLOGY REPORT Reports generated via electronic interface contain original data; however they are lacking the format of the original report. Caution should be taken when reading/interpreti ng unformatted reports. Name: ? CALL, SILVIA Ramirez ? Accession #: ? [id number] : ? 1970 (Age: 33) ??F ?Collect Date: ? 08/14/2003 Location: ? [facility] ? Receive Date: ? 08/17/2003 Provider: ?RUPINDER LEACH DOCUMENTATION CLERK Copy to: ? Specimen/Source: ?ThinPrep Pap Test, Cervix/Endocervix Last Menstrual Period: ? 07/30/03 Previous Gynecologic Pathology: ? ASC-US: 1993 Treatment History: ? Cryotherapy: paps neg since Other: ? Additional clinical information: last pap 1999 neg. ? SPECIMEN ADEQUACY ? Satisfactory for Evaluation - transformation zone component present GENERAL CATEGORIZATION ? Negative for Intraepithelial Lesion or Malignancy ? Document reviewed and electronically signed by: ? Rhona Aguilar, KERMIT(ASCP)(IAC) ? Report Date: ??08/21/2003 15:55 End of Report JUAN C TRINIDAD 08/14/2003 08/17/2003 us Rupinder Leach DOCUMENTATION CLERK PATHOLOGY ORDERABLES Final R esult JUAN C TRINIDAD [address] [place] [address] documented in this encounter Visit Diagnoses Not on filedocumented in this encounter Care Teams Bag Sewer Relationship Specialty Start Date End Date Rubi Fernandez MD [address] [place] [address] [address] [place] [phone] PCP - General 04/16/09 06/06/20 documented as of this encounter
[2024-09-01 12:04] LABS: ALT 34 U/L (14-59); AST 21 U/L (15-37); Albumin 4.2 g/dL (3.4-5.0); Alkaline Phosphatase 142 U/L (46-116); Anion Gap 6.4 mmol/L (3-11); BUN 16 mg/dL (7-18); Bilirubin, Total 0.56 mg/dL (0.2-1.0); CO2 31.6 mmol/L (21.0-32.0); CREATININE 0.9 mg/dL (0.55-1.02); Calcium 9.6 mg/dL (8.5-10.1); Chloride 106 mmol/L (98-107); Estimated GFR 75.97 (mL/min/1.73m2); GGT 128 U/L; Glucose 107 mg/dL (74-106); Potassium 3.7 mmol/L (3.5-5.1); Sodium 144 mmol/L (136-145); Total Protein 7.3 g/dL (6.4-8.2)
== END 2024-09-01 11:26 | disposition home or self-care (01) ==
LOC: LBO 11:30
PROVIDERS: PCP Nurse Practitioner Family; Visit Provider Nurse Practitioner Family
DX: R74.8 Abnormal levels of other serum enzymes (principal)
CPT/HCPCS: 36415; 80053; 82977

== ENCOUNTER 2024-09-12 02:51 | Outpatient (CLI) | payer OTHER, SELFPAY ==
--- NOTE | 2024-09-12 08:34 | DI.MAMMO_ITS ---
Exam(s) MAMMO SCREENING EXAM: MAMMO SCREENING CLINICAL HISTORY: screening,z12.39 TECHNIQUE: Mammograms were interpreted according to the usual protocol including computer analysis w Pradama CAD system, tomosynthesis and C-view imaging. COMPARISON: 2014 through 2022 FINDINGS: The breasts are composed of mainly fatty density , Breast Density category A. No suspicious masses or suspicious microcalcifications are seen. No skin thickening or abnormal axillary lymph nodes are seen. There has been no significant change from prior exams. IMPRESSION: BI-RADS Category 1, Negative mammogram Yearly screening mammography is recommended. Breast Density - Category A, fatty density. A negative radiographic report should not delay biopsy if a dominant or clinically suspicious mass is present. Up to ten percent of cancers are not identified on mammography. A negative report may reinforce clinical impression. Adenosis and dense breasts may obscure an underlying neoplasm. False positive reports average 6 to 10%. Patient will receive a letter notifying them of these results.
== END 2024-09-12 03:11 ==
LOC: DI 02:51
PROVIDERS: PCP Nurse Practitioner Family; Visit Provider Nurse Practitioner Family
DX: Z12.31 Encounter for screening mammogram for malignant neoplasm of breast (principal); R92.313 Mammographic fatty tissue density, bilateral breasts
CPT/HCPCS: 77063; 77067

== ENCOUNTER 2024-09-14 17:51 | Emergency (ER) | payer OTHER, SELFPAY ==
[2024-09-14 17:56] VITALS: BP 153/96; PULSE 98; RESP 14; TEMP 36.1; O2SAT 98
--- NOTE | 2024-09-14 18:13 | W.ED.GENAD ---
Discharge Plan Disposition Patient Disposition: Home Condition: Stable Discharge Details Clinical Impression: Joint pain Primary Care Provider: Erin Velez ED Provider: Serina Keith Home Meds and New Rx's Prescriptions: New colchicine 0.6 mg tablet 0.6 mg PO DAILY Qty: 3 0RF Rx Instructions: Take 2 tablets by mouth then one tablet one hour later. No Action omeprazole 20 mg capsule,delayed release(DR/EC) 20 mg PO DAILY chlorthalidone 25 mg tablet 25 mg PO DAILY Qty: 90 3RF Rx Instructions: Take 1 tablet daily cetirizine [Zyrtec] 10 mg tablet 10 mg PO DAILY Qty: 90 4RF atorvastatin 40 mg tablet 40 mg PO DAILY Qty: 90 3RF losartan 100 mg tablet 100 mg PO DAILY Qty: 90 3RF Rx Instructions: Take 1 tablet once a day trazodone 50 mg tablet 50 - 100 mg PO QHS Qty: 180 3RF potassium chloride 20 mEq tablet extended release 20 meq PO BID Qty: 180 3RF dextroamphetamine-amphetamine 20 mg tablet 20 mg PO DAILY MDD 1 tab Qty: 28 0RF Rx Instructions: 1 tablet daily in the afternoon dextroamphetamine-amphetamine 20 mg capsule,extended release 24hr 40 mg PO DAILY MDD 40 Qty: 56 0RF Discharge Instructions Instructions: Joint Pain Additional Instructions: Take the medication as prescribed. Observe for any worsening symptoms which includes but not limited to worsening pain, fever, redness, warmth to touch, etc. and should this happen return to the emergency department immediately otherwise follow-up with your primary care doctor. HPI General Date/Time Provider Initiated Documentation: 09/14/24 17:53. HPI Narrative: The patient is a 54-year-old female with history of depression who comes to the emergency department for right knuckle pain. The patient reports that she woke up on Wednesday morning with pain on the right knuckle. She initially thought that she may have slept on it wrong. She denies any trauma or injury to the area. Denies history of similar type problem in the past. Reports when she moves her right pinky and hurts a lot. Reports cold makes it feel worse so she is been using a hot pack which does not really do a lot. Reports she is right-hand dominant. Reports the very tip of her right ring finger and pinky is tingly. Denies any wrist pain. Denies any other hand pain. Denies any fever with this. Reports otherwise that she feels at baseline health. Related Data Home Medications ?Medication ?Instructions ?Recorded ?Confirmed omeprazole 20 mg capsule,delayed 20 mg PO DAILY 12/12/20 09/14/24 release cetirizine 10 mg tablet (Zyrtec) 10 mg PO DAILY #90 tab-caps 08/06/21 09/14/24 atorvastatin 40 mg tablet 40 mg PO DAILY #90 tabs 05/01/24 09/14/24 losartan 100 mg tablet 100 mg PO DAILY #90 tabs 05/01/24 09/14/24 trazodone 50 mg tablet 50 - 100 mg (1 - 2 x 50 mg) PO QHS 05/19/24 09/14/24 #180 tabs chlorthalidone 25 mg tablet 25 mg PO DAILY #90 tabs 08/10/24 09/14/24 potassium chloride 20 mEq 20 meq PO BID #180 tabs 08/18/24 09/14/24 tablet,extended release dextroamphetamine-amphetamine 20 20 mg PO DAILY #28 tabs 08/29/24 09/14/24 mg tablet dextroamphetamine-amphetamine ER 40 mg (2 x 20 mg) PO DAILY #56 caps 08/29/24 09/14/24 20 mg 24hr capsule,extend release colchicine 0.6 mg tablet 0.6 mg PO DAILY #3 tabs 09/14/24 Previous Rx's ?Medication ?Instructions ?Recorded cetirizine 10 mg tablet (Zyrtec) 10 mg PO DAILY #90 tab-caps 08/06/21 atorvastatin 40 mg tablet 40 mg PO DAILY #90 tabs 05/01/24 losartan 100 mg tablet 100 mg PO DAILY #90 tabs 05/01/24 trazodone 50 mg tablet 50 - 100 mg (1 - 2 x 50 mg) PO QHS 05/19/24 #180 tabs chlorthalidone 25 mg tablet 25 mg PO DAILY #90 tabs 08/10/24 potassium chloride 20 mEq 20 meq PO BID #180 tabs 08/18/24 tablet,extended release dextroamphetamine-amphetamine 20 20 mg PO DAILY #28 tabs 08/29/24 mg tablet dextroamphetamine-amphetamine ER 40 mg (2 x 20 mg) PO DAILY #56 caps 08/29/24 20 mg 24hr capsule,extend release colchicine 0.6 mg tablet 0.6 mg PO DAILY #3 tabs 09/14/24 Allergies Allergy/AdvReac Type Severity Reaction Status Date / Time No Known Allergies Allergy Verified 09/14/24 18:00 General Stated Complaint: Orthopedic DARSHAN: 4 Review of Systems Constitutional Constitutional: Denies fever(s) Musculoskeletal Comments: Pain to knuckle on her right pinky. Neurologic Comments: Reports the very tip of her right pinky and ring finger are tingly. Exam Narrative Exam Narrative: The patient has tenderness to palpation to the right fifth metacarpal phalangeal joint with swelling. There is no overlying erythema to the region however or increased warmth to the touch. She has tenderness to palpation to this joint. The right pinky is not tender to palpation throughout otherwise. She reports she has diminished station to light touch to the very tip of the right pinky and right ring finger. The right ring finger is nontender to palpation throughout. The rest of her right hand in fact is nontender to palpation throughout. She has strong right radial pulse and no right wrist tenderness to palpation and range of motion testing. Range of motion to the right pinky is deferred secondary to discomfort but the rest of the fingers of the right hand have intact range of motion testing throughout. Course Vital Signs Vital signs: Vital Signs Temperature 36.1 C L 09/14/24 17:56 Pulse 98 H 09/14/24 17:56 Respiratory Rate 14 09/14/24 17:56 Blood Pressure 153/96 H 09/14/24 17:56 Pulse Oximetry 98 09/14/24 17:56 Temperature 36.1 C L 09/14/24 17:56 Pulse 98 H 09/14/24 17:56 Respiratory Rate 14 09/14/24 17:56 Blood Pressure 153/96 H 09/14/24 17:56 Pulse Oximetry 98 09/14/24 17:56 Pain Level 8 09/14/24 17:56 Medical Decision Making Because there was no trauma or injury to the hand I have a lower suspicion for fracture or subluxation as the etiology for this and for this reason I did not order imaging studies which the patient agreed. There is no overlying erythema, increased warmth to touch and the patient arrives hemodynamically stable without any fever therefore lower suspicion also for joint infection. Although the patient has no history of this I have considered biliary pathology as the etiology of her symptom for this I told her I could try anti-inflammatory versus pain pill. The patient reports he does not want any narcotic medication for pain at all. Patient denies any history of kidney problems. I will therefore send a prescription for colchicine to her preferred pharmacy. She is asked to observe for any worsening symptoms such as increased warmth to the touch, increasing pain, fever, redness and should this happen to return to the emergency department immediately for reevaluation otherwise I encouraged her to follow-up with her primary care doctor. Quality:SDOH Health Related Social Needs: No Data to Display PFSH All Active Problems (Updated 09/14/24 @ 18:14 by Serina Keith DO) Joint pain (Acute) ADHD (attention deficit hyperactivity disorder) (Chronic) Essential hypertension (Chronic) Hyperlipidemia (Chronic) Prediabetes (Chronic) Tricuspid valve regurgitation (Chronic) GERD (gastroesophageal reflux disease) (Chronic) Hiatal hernia (Chronic) Small on 2023 barium swallow Class 3 severe obesity with body mass index (BMI) of 40.0 to 44.9 in adult (Acute) Gastritis (Chronic) Chronic cough (Chronic) Cxray 11/2020 benign Insomnia (Acute) Medical History Abnormal uterine bleeding Diastolic dysfunction Major depressive disorder Supraventricular tachycardia s/p ablation in 2003 (aortic perforation during procedure) and 2011 (successful) Tubular adenoma of colon On colonoscopy in 2019 Surgical History History of appendectomy History of cholecystectomy History of esophagogastroduodenoscopy (EGD) (06/07/20) History of incisional hernia repair (08/29/19) History of radiofrequency ablation procedure for cardiac arrhythmia (09/28/11) For SVT S/P colonoscopy (06/07/20) S/P laparoscopic assisted vaginal hysterectomy (LAVH) (03/11/17) For AUB S/P medial meniscus repair of left knee (03/09/23) S/P right knee arthroscopy (03/07/19) Partial medial meniscectomy, Medial chondroplasty S/P trigger finger release (08/12/16) Right thumb Family History Mother , 71 from colon cancer Diabetes Heart disease Hyperlipidemia Myocardial infarction Colon cancer Hypertension Father , 73 Diabetes Alcohol abuse Heart disease Hyperlipidemia Myocardial infarction COPD (chronic obstructive pulmonary disease) Lung cancer Throat cancer Hypertension Sister Depression Stroke Brother Diabetes Heart disease Myocardial infarction Hypertension Brother Heart disease Myocardial infarction Diabetes Brother Myocardial infarction Heart disease Brother , at 29 from snow machine accident Alcohol abuse Depression Son No problems noted. Son No problems noted. Maternal Grandfather No problems noted. Maternal Grandmother Uterine cancer Paternal Grandfather Heart disease Paternal Grandmother Myocardial infarction Heart disease Social History Smoking/Tobacco Use Status: Never Second Hand Exposure: Yes Smoking risk assessment performed?: Yes Alcohol Intake: current Alcohol Intake frequency: a few times a month Alcohol type: wine Drug use: Never Substance use type: does not use Household members: spouse and foster family Communication Needs: None Do you need help understanding health information?: Rarely current occupation: [employer] Pets and animals: Yes Pets and animals: cat(s) and dog(s) Sexually active: Yes Do you think of yourself as: straight/heterosexual Current gender identity: female What is your relationship status?: How often do you talk on the phone with friends or family?: twice per week How often do you get together with friends or relatives?: once per week Do you belong to any clubs or organized social groups?: no Panel score (0-1 are the most socially isolated patients): 2 What type of physical activity do you participate in: none Deepika/Pentecostal: Pentecostal Seatbelt use: always Drive intox or ride w/intox special client bus driver: No Do you feel safe at home: Yes Do you feel safe in your relationship?: Yes History History 2 Para 2 Hx # Term Pregnancies Multiple births Hx # Pregnancies Ectopic pregnancies AB induced Hx Number of Living Children 2 AB spontaneous
--- OUTSIDE RECORDS SUMMARY | 2024-09-14 18:31 | XMS_ITS | Encounter Summary ---
Author Organization [facility] Address [address] [place] [address] Care Team Providers Care Early Childhood Education Worker Name Role Phone Rubi Fernandez MD Primary Care Provider [phone] Encounter Details Date Type Department Care Team (Late st Contact Info) Description 09/28/2011 10:37 EST - 09/28/2011 17:00 EST Hospital Encounter [facility] Cardiovascular Unit [address] [place] [address] Lloyd Hernandes MD [address] [facility] [address] [place] [address] Discharge Disposition: Home or Self [...] Rachael Caba RN - 09/28/2011 15:58 EST [place] [facility] Discharge Instructions for Non Anesthesia Ablation Patients [...] hesitate to call [facility] [place] [phone], or dial direct and leave a message for Courtney Abdalla RN and she will return your call as soon as possible. * Attachments The following attachments cannot be sent through Care Everywhere. * ELECTROPHYSIOLOGY STUDY AND CATHETER ABLATION: WHAT TO EXPECT AT HOME (ICELANDIC) documented in this encounter Medications at Time [...] Cardiovascular Unit via ambulatory. Patient identified per [facility] policy and oriented to Unit. Reviewed [...] hx of ra and aortic perforation at [facility] in 2003. Here for repeat attempt atablation. Did not tolerate cardizem, felt poor. Silvia Shirley is a pleasant 41-year-old woman with a long history of supraventricular tachycardia. She underwent attempted catheter ablation at [facility] in 2003. Unfortunately, the procedure resulted in [...] not have any of the records from [facility] to know if the aortic perforation was [...] echo. PMH: SVT S/p attempted ablation at [facility], S/p cardiac / aortic perforation and open chest repair gerd Soc: no cigs, occ etoh, lives in [place] All: nkda Social History Substance Use Topics [...] surgery 2003 repair post ablation tear in [place] Prescriptions prior to admission Medication Sig Dispense Refill ??? POTASSIUM ORAL Take 20 mg by mouth daily. ??? DISCONTD: DILTiazem (CARDIZEM CD) 180 mg ER capsule Take 1 Cap by mouth daily. 30 Cap 5 ??? furosemide (LASIX) 40 mg tablet Take 40 mg by mouth daily. Allergies Allergen Reactions ??? Diltiazem Other (See Comments) [place] weak-pulse very slow ??? No Known Drug [...] documented in this encounter Procedure Notes * Supervisor Dials, Scan - 10/05/2011 0751 ESTAssociated Order(s): ECG REPORT - SCANNED * Supervisor Dials, Scan - 10/01/2011 1741 ESTAssociated Order(s): CARDIAC CATHERIZATION REPORT - SCANNED * Lloyd Hernandes MD - 09/28/2011 1532 EST Cardiac Arrhythmia Service Tonny Brody M.D. Kendell Castillo M.D. Nigel Lee M.D., Ph.D. Lloyd Hernandes M.D. Prisca Alonso N.P. EP Study and Ablation for Orthodromic Reentrant Tachycardia Name: Silvia Shirley Manager Of Hospital: Lloyd Hernandes MD : 1970 DOP: 09/28/2011 Assistants: [facility] #: Louis Gillette RN Referring Physician: Rubi Fernandez MD Primary Physician: same INDICATION: Symptomatic supraventricular tachycardia HPI: 41 year old female with highly symptomatic supra-ventricular tachycardia for many years. She had EPstudy at [facility] several years ago, demonstrating a Left sided AP and SVT. The procedure was complicated by tamponade, and no ablation was performed. She is now re-referred for EP study and possible catheter ablation. Anesthesia: Conscious sedation & topical anesthetic Procedure: The patient was brought to the Cardiac Electrophysiology Lab - [place] [address] in the fasting state. After informed consent [...] the mitral annulus as viewed in the [place]OT[place] projection. The retrograde activation sequences during SVT [...] encounter Miscellaneous Notes * Scanned Note-Null - Supervisor Dials, Scan - 10/01/2011 1741 EST * Scanned Note-Null - Supervisor Dials, Scan - 10/01/2011 1741 EST * Scanned Note-Null - Supervisor Dials, Scan - 10/01/2011 1741 EST * Scanned Note-Null - Supervisor Dials, Scan - 09/28/2011 1040 EST * Scanned Note-Null - Supervisor Dials, Scan - 09/28/2011 1040 EST documented in [...] 7:51 EST) 10/05/2011 7:51 EST Narrative Transcriptions Supervisor Dials, Scan - 10/05/2011 7:51 EST us Scan Supervisor Dials PROCEDURE/MINOR SURGICAL ORDE RABLES Final Result * CARDIAC CATHERIZATION REPORT - SCANNED (10/01/2011 17:41 EST) 10/01/2011 17:4 1 EST Narrative Transcriptions Supervisor Dials, Scan - 10/01/2011 17:41 EST us Scan Supervisor Dials PROCEDURE/MINOR SURGICAL ORDE RABLES Final Result * ACT, CELITE ISTAT (09/28/2011 13:47 EST) Activated Clotting Time [address] [facility] ice cream maker [place] [id number] [facility] Comment: Test performed by Cardiology. Baseline ref range for ACT = 84 to 139 seconds For non baseline ref ranges see procedure. 09/28/2011 13:4 7 EST 09/28/2011 14:14 EST us Lloyd Hernandes MD POINT OF CARE TEST ORDER UVALDO Final Result [facility] [address] [place] [address] * HCG (09/28/2011 11:30 EST) Quant Beta [...] OR DERABLES Final Result Performing Organization Address City/[facility] Co de Phone Number [facility] [address] [place] [address] * (ABNORMAL) HEMAGRAM (09/28/2011 11:30 EST) [facility] WBC 3.93(L) 4.0 - 12.4 K/cmm IRIZARRY [...] ORDERAB LES Final Result Performing Organization Address [facility] de Phone Number [facility] [address] [place] [address] * PTT (09/28/2011 11:30 EST) [facility] PTT 28 24 - 35 secs [facility] Comment:Therapeutic Heparin range: 60-90 seconds Blood specimen (specimen) 09/28/2011 11:30 EST 09/28/2011 11:38 EST us Lloyd Hernandes MD HEMATOLOGY & PF4 ORDERAB LES Final Result Performing Organization Address [facility] de Phone Number [facility] [address] [place] [address] * PROTIME (09/28/2011 11:30 EST) Pro Time [...] ORDERAB LES Final Result Performing Organization Address [facility] de Phone Number [facility] [address] [place] [address] * CREATININE (09/28/2011 11:30 EST) Creatinine 0.90 0.7 - 1.5 mg/dl [facility] GFR, Calculated >60 >60 ml/min/1.7 3m2 [facility] Blood specimen (specimen) 09/28/2011 11:30 EST 09/28/2011 11:38 EST us Lloyd Hernandes MD CHEMISTRY & BLOOD GAS OR DERABLES Final Result Performing Organization Address [facility] de Phone Number [facility] [address] [place] [address] * BUN (09/28/2011 11:30 EST) BUN 13 10 - 26 mg/dl [facility] Blood specimen (specimen) 09/28/2011 11:30 EST 09/28/2011 11:38 EST us Lloyd Hernandes MD CHEMISTRY & BLOOD GAS OR DERABLES Final Result Performing Organization Address [facility] Phone Number [facility] [address] [place] [address] * ELECTROLYTES (09/28/2011 11:30 EST) Pathologist [facility] [...] OR DERABLES Final Result Performing Organization Address [facility] Phone Number [facility] [address] [place] [address] * TEST, URINE (09/28/2011 11:05 EST) Pathologist [...] ORDERABLES Fi nal Result Performing Organization Address [facility] Phone Number [facility] [address] [address] documented in this encounter Visit Diagnoses Not [...] 09/28/2011 documented in this encounter Care Teams Early Childhood Education Worker Relationship Specialty Start Date End Date Rubi Fernandez MD [address] [place] [address] PCP - General 04/16/09 06/06/20 documented as of this encounter
--- OUTSIDE RECORDS SUMMARY | 2024-09-14 18:31 | XMS_ITS | Referral Summary ---
Author Organization [facility] Address [address] [place] [address] Care Team Providers Care Industrial Controls Technician Name Role Phone Erin Velez JESICA Primary Care Provider [phone] Encounters Date Type Department Care Team Description 08/11/2024 Lab Requisition [facility] Pathology & Laboratory [facility] [address] [place] [address] Outr Resulting Lab, Provider 08/11/2024 Lab Requisition [facility] Pathology Laboratory [facility] [address] [place] [address] Outr Resulting Lab, Provider from Last 3 Months Allergies Active Allergy Reactions Criticality Noted Date Comments Diltiazem Other (See Comments) 09/28/2011 [place] weak-pulse very slow No Known Drug Allergies 09/28/2011 Medications furosemide (LASIX) 40 mg tablet Take 40 mg by mouth daily. Active POTASSIUM ORAL Take 20 mg by mouth daily. Active Active Problems Problem Noted Date Diagnosed Date Supraventricular tachycardia ([facility]) 2 Social History Tobacco Use Types Packs/Day [...] C Antibody Negative Negative 08/11/2024 22:44 EST [facility] Blood VENOUS BLOOD / Unknown 08/11/2024 13:22 EST 08/11/2024 21:08 EST us Provider Outr Resulting Lab CHEMISTRY & BLOOD GA S ORDERABLES Final Result [facility] [address] [place] [address] * HEPATITIS B PROFILE (08/11/2024 13:22 EST) Hep B Surface Ag Negative Negative 08/11/20 22:47 EST [facility] Hep B Surface Ab, Quantitative <3.1 See Note mIU/mL 08/11/2024 22:47 [facility] Comment: Reference Range for Hep B Surface Ab, Quant: Positive: >= 10.0 mIU/mL Negative: ??< 10.0 mIU/mL Patient is presumed to not be immune to infection with Hepatitis B Virus. Hep B Surface Ab, Qualitative Negative See Note 08/11/2024 22:47 [facility] Comment: Reference Range for Hep B Surface Ab, Qual: Unvaccinated: ??Negative Vaccinated: ??Positive Hepatitis B Core Ab, Total Negative Negative 08/11/2024 22:47 [facility] Blood VENOUS BLOOD / Unknown 08/11/2024 13:22 EST 08/11/2024 21:08 EST Provider Outr Resulting Lab CHEMISTRY & BLOOD GA S ORDERABLES Final Result Performing Organization Address [facility] Co de Phone Number [facility] [address] [place] [phone] * HIV 1/2 ANTIGEN AND ANTIBODY, 4TH GENERATION (08/11/2024 13:22 EST) Pathologist [facility] HIV 1 and 2 Antibody/p24 Antigen, 4th Generation Negative Negative 08/11/2024 23:03 EST [facility] Comment:If acute HIV-1 infec tion is suspected in a high risk patient, submit plasma specimen for HIV-1 RNA quantitation test. Blood VENOUS BLOOD / Unknown 08/11/2024 13:22 EST 08/11/2024 21:08 EST Narrative [facility] - 08/11/2024 23:03 EST Fourth Generation assay performed on the Siemens Centaur XPT. us Provider Outr Resulting Lab IMMUNOLOGY AND SEROL OGY ORDERABLES Final Result Performing Organization Address City/[facility]/ZIP Co de Phone Number [facility] [address] [place] [phone] from Last 3 Months Insurance [facility] Advance Directives For more information, please contact: [phone] * Full Code (Latest Code Status on File) Date Activated Date Inactivated Comments 09/28/2011 14:17 09/28/2011 19:10 Care Teams Industrial Controls Technician Relationship Specialty Start Date End Date Erin Velez NP [address] [place] [address] [address] [place] [id number] PCP - General 06/07/20
--- OUTSIDE RECORDS SUMMARY | 2024-09-14 18:31 | XMS_ITS | Encounter Summary ---
Author Organization [facility] Address [address] [place] [address] Care Team Providers Care Head Insulation Board Saw Operator Name Role Phone UriahErin alonzo JESICA Primary Care Provider Encounter Details Date Type Department Care Team (Late st Contact Info) Description 06/07/2020 Lab Requisition [facility] Pathology & Laboratory Medicine - [facility] [address] [place] [address] Ena Regan MD [address] [place], [place] [id number] Unspecified chronic gastritis without bleeding; Polyp of [...] - Suggestive of hyperplastic polyp. 06/10/2020 11:09 [facility] Attestation By the signature below, the attending physician certifies that they have 1) personally conducted a gross and/or microscopic examination of the described specimen(s), and/or personally interpreted the results of laboratory testing of the described specimen(s), and 2) personally rendered or confirmed the above diagnosis. 06/10/2020 11:09 [facility] at 1109 Clinical History Diarrhea, dysphagia, minimal gastritis 06/10/2020 11:09 [facility] Gross Description A. Received in [...] 06/07/2020 16:12 06/10/2020 11:09 EDT [facility] Performing Lab [facility] 06/10/2020 11:09 EDT [facility] Scanned Images 06/10/2020 11:09 EDT [facility] Tissue SPECIMEN FROM [...] PATHOLOGY ORDERABLES Final Resul t [facility] [address] [place] [address] documented in this encounter Visit Diagnoses Diagnosis Unspecified chronic gastritis without bleeding Polyp of colon Benign neoplasm of colon documented in this encounter Care Teams Head Insulation Board Saw Operator Relationship Specialty Start Date End Date Erin Velez NP [address] [place] [address] PCP - General 06/07/20 documented as of this encounter
--- OUTSIDE RECORDS SUMMARY | 2024-09-14 18:31 | XMS_ITS | Encounter Summary ---
Author Organization Health system Address [address] [place] [address] Care Team Providers Care Upsetter Helper Name Role Phone Rubi Fernandez MD Primary Care Provider [phone] Encounter Details Date Type Department Care Team (Late st Contact Info) Description 02/18/2015 Results Only [facility]- PRISM [phone] Rupinder Leach, [address] [place] [address] Social History Tobacco Use Types [...] CALL, SILVIA Ramirez ? Accession #: ? [id number] ? : ? 1970 (Age: 44) ??F ?Collect Date: ? 02/18/2015 ? Location: ? [facility] ? Receive Date: ? 02/19/2015 ? Provider: RUPINDER LEACH [facility] Copy to: RUBI FERNANDEZ MD ? [...] types 16,18,31,33,35, 39,45,51,52,56,58, 59,66, and 68 by mutuel department manager mediated amplification. Comments Document reviewed and electronically signed by: ? System Interface ? Report date: 02/28/2015 By the signature above, the attending physician certifies that he/she has personally conducted a gross and/or microscopic examination of the described specimens and rendered or confirmed the above diagnosis. End of Report [facility] 02/18/2015 02/19/2015 us Rupinder Leach RETAIL MARKETING MANAGER PATHOLOGY ORDERABLES Final R esult [facility] [address] [place] [address] documented in this encounter Visit Diagnoses Not on filedocumented in this encounter Care Teams Upsetter Helper Relationship Specialty Start Date End Date Rubi Fernandez MD [address] [place] [address] PCP - General 04/16/09 06/06/20 documented as of this encounter
--- OUTSIDE RECORDS SUMMARY | 2024-09-14 18:31 | XMS_ITS | Encounter Summary ---
Author Organization [facility] Address [address] [place] [address] Care Team Providers Care Dog Food Dough Mixer Name Role Phone Rubi Fernandez MD Primary Care Provider [phone] Encounter Details Date Type Department Care Team (Late st Contact Info) Description 01/31/2007 Results Only [facility] - Maple conversion [address] [place] [address] Rupinder Laech, [facility] [address] [place] [address] [place] [address] Social History Tobacco Use Types [...] CALL, SILVIA Ramirez ? Accession #: ? [id number] : ? 1970 (Age: 36) ??F ?Collect Date: ? 01/31/2007 Location: ? [facility] ? Receive Date: ? 02/02/2007 Provider: ?RUPINDER HERRERAP Copy to: ? Specimen/Source: ?ThinPrep Pap Test, Cervix/Endocervix, processed on SensorTran ThinPrep Imaging System, with manual evaluation Last [...] C [facility] 01/31/2007 02/02/2007 us Rupinder Leach TISSUE SPECIALIST PATHOLOGY ORDERABLES Final R esult [facility] [address] [place] [address] documented in this encounter Visit Diagnoses Not on filedocumented in this encounter Care Teams Dog Food Dough Mixer Relationship Specialty Start Date End Date Rubi Fernandez MD [address] [facility] [facility] [address] [address] [place] [phone] PCP - General 04/16/09 06/06/20 documented as of this encounter
--- OUTSIDE RECORDS SUMMARY | 2024-09-14 18:31 | XMS_ITS | Encounter Summary ---
Author Organization [facility] Address [address] [place] [address] Care Team Providers Care Union Laborer Name Role Phone Rubi Fernandez MD Primary Care Provider [phone] Encounter Details Date Type Department Care Team (Late st Contact Info) Description 05/15/2005 Results Only [facility] - Maple conversion [address] [place] [address] Rupinder Leach, [facility] [address] [place] [address] [place] [address] Social History Tobacco Use Types [...] CALL, SILVIA Ramirez ? Accession #: ? [id number] : ? 1970 (Age: 35) ??F ?Collect Date: ? 05/15/2005 Location: ? [facility] ? Receive Date: ? 05/19/2005 Provider: ?RUPINDER HERRERAP Copy to: ? Specimen/Source: ?ThinPrep Pap Test, Cervix/Endocervix, processed on SolarPower IsraelPrep Imaging System, with manual evaluation Last Menstrual [...] C [place] 05/15/2005 05/19/2005 us Rupinder Leach INFORMATION TECHNOLOGY ACCOUNT MANAGER PATHOLOGY ORDERABLES Final R esult [facility] [address] [place] [address] documented in this encounter Visit Diagnoses Not on filedocumented in this encounter Care Teams Union Laborer Relationship Specialty Start Date End Date Rubi Fernandez MD [address] [place] [phone] PCP - General 04/16/09 06/06/20 documented as of this encounter
--- OUTSIDE RECORDS SUMMARY | 2024-09-14 18:31 | XMS_ITS | Encounter Summary ---
Author Organization [facility] Address [address] [place] [address] Care Team Providers Care Process Manager Name Role Phone Rubi Fernandez MD Primary Care Provider [phone] Erin Velez NP Primary Care Provider [phone] Encounter Details Date Type Department Care Team (Late st Contact Info) Description 06/04/2020 Lab Requisition [facility] Pathology & Laboratory Medicine - [facility] [address] [place], [place] [address] Outr Resulting Lab, Provider Social History Tobacco [...] rt-PCR Result NEGATIVE Negative 06/05/2020 10:45 EDT [facility] Comment: 2019-novel Coronavirus (2019-nCoV) not detected [...] in accordance with CLIA regulations, College of [place] Pathologists (CAP) guidelines (Dec 07, 2019), and FDA guidance (Nov 18, 2019). This test is only for use under the Food and Drug Administration's Emergency Use Authorization. Swab ENTIRE NASOPHARYNX / Unknown 06/04/2020 9:58 EDT 06/04/2020 16:32 EDT us Provider Outr Resulting Lab MICROBIOLOGY - GENER AL ORDERABLES Final Result [facility] [place] * COVID-19 TESTING (06/04/2020 9:58 EDT) COVID-19 rt-PCR Result NEGATIVE Negative 06/05/2020 12:49 EDT [facility] Comment: 2019-novel Coronavirus (2019-nCoV) not detected [...] in accordance with CLIA regulations, College of [place] Pathologists (CAP) guidelines (Dec 07, 2019), and FDA guidance (Nov 18, 2019). This test is only for use under the Food and Drug Administration's Emergency Use Authorization. Performing Lab [facility] [employer] [facility] [place] 06/05/2020 12:49 EDT [facility] Swab 06/04/2020 9:58 EDT 06/04/2020 16:32 EDT us Provider Outr Resulting Lab MICROBIOLOGY - GENER AL ORDERABLES Final Result [facility] [address] [place] [address] [facility] [place] documented in this encounter Visit Diagnoses Not on filedocumented in this encounter Care Teams Process Manager Relationship Specialty Start Date End Date Rubi Fernandez MD [address] [place] [address] PCP - General 04/16/09 06/06/20 Erin Velez NP [address] [place] [address] PCP - General 06/07/20 documented as of this encounter
--- OUTSIDE RECORDS SUMMARY | 2024-09-14 18:31 | XMS_ITS | Encounter Summary ---
Author Organization [facility] Address [address] [place] [address] Care Team Providers Care Pinmaker Name Role Phone Rubi Fernandez MD Primary Care Provider [phone] Encounter Details Date Type Department Care Team (Latest Contact Info) Description 01/13/2017 14:39 EDT - 01/13/2017 23:59 EDT Hospital Encounter [address] [address] Unknown, Provider, Discharge Disposition: Home or Self [...] Code Departure Means Destination Home or Self Group Home documented in this encounter Plan of Treatment Not on file documented as of this encounter Visit Diagnoses Not on filedocumented in this encounter Care Teams Pinmaker Relationship Specialty Start Date End Date Rubi Fernandez MD [address] [place] [address] [address] [place] [address] PCP - General 04/16/09 06/06/20 documented as of this encounter
--- OUTSIDE RECORDS SUMMARY | 2024-09-14 18:31 | XMS_ITS | Encounter Summary ---
Author Organization [facility] Address [address] [place] [address] Care Team Providers Care Tube Maker Name Role Phone Rubi Fernandez MD Primary Care Provider [phone] Encounter Details Date Type Department Care Team (Late st Contact Info) Description 04/30/2000 Results Only [facility] - Maple conversion [address] [place] [address] Rupinder Leach, [facility] [address] [place] [address] [place] [address] Social History Tobacco Use Types [...] CALL, SILVIA Ramirez ? Accession #: ? [id number] : ? 1970 (Age: 30) ??F ?Collect Date: ? 04/30/2000 Location: ? [facility] ? Receive Date: ? 05/04/2000 Provider: ?RUPINDER LEACH CURRICULUM AND ASSESSMENT COORDINATOR Copy to: ? Specimen/Source: ?ThinPrep Pap Test, [...] C [place] 04/30/2000 05/04/2000 us Rupinder Leach CURRICULUM AND ASSESSMENT COORDINATOR PATHOLOGY ORDERABLES Final R esult [facility] [address] [place] [address] documented in this encounter Visit Diagnoses Not on filedocumented in this encounter Care Teams Tube Maker Relationship Specialty Start Date End Date Rubi Fernandez MD [address] [place] [address] PCP - General 04/16/09 06/06/20 documented as of this encounter
--- OUTSIDE RECORDS SUMMARY | 2024-09-14 18:31 | XMS_ITS | Encounter Summary ---
Author Organization [facility] Address [address] [place] [address] Care Team Providers Care Medical Assistant Name Role Phone Rubi Fernandez MD Primary Care Provider [phone] Encounter Details Date Type Department Care Team (Late st Contact Info) Description 01/13/2017 Results Only [facility]- PRISM [phone] Heide De La Cruz MD [facility] [place], [place] [address] Social History Tobacco Use Types Packs/Day Years [...] CALL, SILVIA Ramirez ? Accession #: ? [id number] ? : ? 1970 (Age: 46) ??F [...] Nair 01/14/2017 11:59 AM End of Report [facility] 01/13/2017 11:1 3 EDT 01/14/2017 11:13 EDT us Heide De La Cruz MD PATHOLOGY ORDERABLES Final Res ult [facility] [address] [place] [address] documented in this encounter Visit Diagnoses Not on filedocumented in this encounter Care Teams Medical Assistant Relationship Specialty Start Date End Date Rubi Fernandez MD [address] [place] [address] PCP - General 04/16/09 06/06/20 documented as of this encounter
--- OUTSIDE RECORDS SUMMARY | 2024-09-14 18:31 | XMS_ITS | Encounter Summary ---
Author Organization [facility] Address [address] [place] [address] Care Team Providers Care Train Dispatcher Name Role Phone Unavailable Primary Care Provider Unavailabl e Encounter Details Date Type Department Care Team (Latest Contact Info) Description 11/01/2005 0:14 EST - 11/01/2005 11:59 EST Hospital Encounter [facility] Emergency Department - [facility] [address] [place] [address] Emergency, Default, MD Discharge Disposition: Home or [...] PHONE RESULT Final Result Performing Organization Address [facility] de Phone Number [facility] [address] [place] [address] * HOLD PURPLE TOP (11/01/2005 0:21 EST) Hold Purple Top EDTA for hematology will be discarded after 48 hours, differential not available after 12 hours. [facility] 11/01/2005 0:21 EST 11/01/2005 0:26 EST us Default Emergency MD LAB INFO SERVICE AND SUPPOR T & PHONE RESULT Final Result Performing Organization Address [facility] Phone Number [facility] [address] [place] [address] * HOLD GREEN TOP (11/01/2005 0:21 EST) Hold Green Top Hold for further testing. Specimen will be held for 30 days. [facility] 11/01/2005 0:21 EST 11/01/2005 0:26 EST us Default Emergency MD LAB INFO SERVICE AND SUPPOR T & PHONE RESULT Final Result Performing Organization Address [facility] de Phone Number [facility] [address] [place] [address] * HOLD BLUE TOP (11/01/2005 0:21 EST) Hold Blue Top Sample for coagulation will be discarded after 4 hours [facility] 11/01/2005 0:21 EST 11/01/2005 0:26 EST us Default Emergency MD LAB INFO SERVICE AND SUPPOR T & PHONE RESULT Final Result Performing Organization Address [facility] de Phone Number [facility] [address] [place] [address] documented in this encounter Visit Diagnoses Not on filedocumented in this encounter
--- OUTSIDE RECORDS SUMMARY | 2024-09-14 18:31 | XMS_ITS | Encounter Summary ---
Author Organization [facility] Address [address] [place] [address] Care Team Providers Care Websphere Commerce Consultant Name Role Phone UriahErin alonzo JESICA Primary Care Provider [phone] Encounter Details Date Type Department Care Team (Late st Contact Info) Description 08/11/2024 Lab Requisition [facility] Pathology & Laboratory Medicine - [facility] [address] [place] [address] Outr Resulting Lab, Provider Social History Tobacco [...] 4th Generation Negative Negative 08/11/2024 23:03 EST [facility] Comment:If acute HIV-1 infec tion is suspected in a high risk patient, submit plasma specimen for HIV-1 RNA quantitation test. Blood VENOUS BLOOD / Unknown 08/11/2024 13:22 EST 08/11/2024 21:08 EST Narrative [facility] - 08/11/2024 23:03 EST Fourth Generation assay performed on the Siemens SONIC BLUE AEROSPACEaur XPT. us Provider Outr Resulting Lab IMMUNOLOGY AND SEROL OGY ORDERABLES Final Result [facility] [address] [place] [address] documented in this encounter Visit Diagnoses Not on filedocumented in this encounter Care Teams Websphere Commerce Consultant Relationship Specialty Start Date End Date Erin Velez NP [address] [place] [address] [address] [place] [phone] PCP - General 06/07/20 documented as of this encounter
--- OUTSIDE RECORDS SUMMARY | 2024-09-14 18:31 | XMS_ITS | Encounter Summary ---
Author Organization [facility] Address [address] [place] [address] Care Team Providers Care Farmer And Grazier Name Role Phone Unavailable Primary Care Provider Unavailabl e Encounter Details Date Type Department Care Team (Late st Contact Info) Description 11/26/2008 8:57 EDT Hospital Encounter [facility] [place] conversion [address] [place] [address] Carolee Hampton, PhD [address] [place] [phone] Social History Tobacco Use Types Packs/Day [...]
--- OUTSIDE RECORDS SUMMARY | 2024-09-14 18:31 | XMS_ITS | Encounter Summary ---
Author Organization [facility] Address [address] [place] [address] Care Team Providers Care Auto Body Painter Name Role Phone Rubi Fernandez MD Primary Care Provider [phone] Encounter Details Date Type Department Care Team (Latest Contact Info) Description 06/11/2009 8:49 EDT - 06/11/2009 23:59 EDT Hospital Encounter [facility] [address] [place], [place] [address] Lawrence Irby MD [address] [place] [phone] Discharge Disposition: Home or Self Care [...] Code Departure Means Destination Home or Self Intermediate documented in this encounter Procedure Notes * [...] on filedocumented in this encounter Care Teams Auto Body Painter Relationship Specialty Start Date End Date Rubi Fernandez MD [address] [place], [place] [address]W[address] [place] [address] PCP - General 04/16/09 06/06/20 documented as of this encounter
--- OUTSIDE RECORDS SUMMARY | 2024-09-14 18:31 | XMS_ITS | Encounter Summary ---
Author Organization [facility] Address [address] [place] [address] Care Team Providers Care Research Engineer Marine Equipment Name Role Phone Rubi Fernandez MD Primary Care Provider [phone] Encounter Details Date Type Department Care Team (Late st Contact Info) Description 11/01/2005 Office Visit [facility] - Maple conversion [address] [place] [address] Tonny Lo MD [address] [facility] [place] [address] Social History Tobacco Use Types [...] RAYMOND PEACE MD, , [address] [place] [address]. (Electronically signed by Tonny Lo M.D. 11/01/2005 [...] mild difficulty breathing. No chest pain. Treatment LAYAWAY CLERK: None. PAST HX: Supraventricular tachycardia. OPEN HEART S/P ABLATION. SOCIAL HX: Occasional alcohol use. Nonsmoker. No drug use. No report of abuse. Arrived by private vehicle, arrived (FROM [employer]). And accompanied by spouse. Historian: patient. --0011 Thompson Vogt, R.N. PAST HX. PHYSICAL ASSESSMENT Ambulatory to room. Alert. Appears in no acute distress. Oriented X 3. Respirations not labored. --0011 Thompson Du R.N. NURSING PROGRESS NOTES Progress Oxygen administered by nasal cannula at 2 liters. telemetry monitor, pulse oximeter and NIBP monitor placed on patient; school bus monitor - Lead II; monitor alarms on. 12-lead [...] spouse verbalized understanding. Written instructions provided in Thai. The patient was discharged home and accompanied by spouse. The patient left the Emergency Department ambulatory and via private vehicle. Patient driving. --207 Kathi Sharma R.N. E.M.TJae Bañuelos R.N. Locked/Released at 11/01/2005 2:08 by Gloria Bañuelos R.N. documented in this encounter Plan of Treatment Not on file documented as of this encounter Visit Diagnoses Not on filedocumented in this encounter Care Teams Research Engineer Marine Equipment Relationship Specialty Start Date End Date Rubi Fernandez MD [address] [place] [address] [address] [place] [address] PCP - General 04/16/09 06/06/20 documented as of this encounter
--- OUTSIDE RECORDS SUMMARY | 2024-09-14 18:31 | XMS_ITS | Encounter Summary ---
Author Organization [facility] Address [address] [place] [address] Care Team Providers Care Auto Camp Attendant Name Role Phone Rubi Fernandez MD Primary Care Provider [phone] Reason for Visit * Reason Comments Other 2 weeks post SVT abl ation, doingawesome Encounter Details Date Type Department Care Team (Late st Contact Info) Description 10/12/2011 13:00 EST Office Visit [facility] Cardiology [place] [address] Lloyd Hernandes MD [address] [facility], [address] [place] [address] SVT (supraventricular tachycardia) ([facility]) (Primary Dx) Social History Tobacco [...] surgery 2003 repair post ablation tear in [place] No family history on file. Social History [...] Allergen Reactions ??? Diltiazem Other (See Comments) [place] weak-pulse very slow ??? No Known Drug [...] dysrhythmias documented in this encounter Care Teams Auto Camp Attendant Relationship Specialty Start Date End Date Rubi Fernandez MD [address] [place], [place] [address] [address] [place] [address] PCP - General 04/16/09 06/06/20 documented as of this encounter
--- OUTSIDE RECORDS SUMMARY | 2024-09-14 18:31 | XMS_ITS | Encounter Summary ---
Author Organization [facility] Address [address] [place] [address] Care Team Providers Care Printing Sales Representative Name Role Phone Rubi Fernandez MD Primary Care Provider [phone] Erin Velez NP Primary Care Provider [phone] Encounter Details Date Type Department Care Team (Late st Contact Info) Description 04/17/2010 Documentation Visit [facility] Bariatric Surgery [facility] [address] [place], [place] [address] Adrienne Yi, PICKING CREW SUPERVISOR [address] [phone] Social History Tobacco Use Types Packs/Day Years [...] on filedocumented in this encounter Care Teams Printing Sales Representative Relationship Specialty Start Date End Date Rubi Fernandez MD [address] [place] [address] [address] [place] [phone] PCP - General 04/16/09 06/06/20 Erin Velez NP [address] [place] [address] [address] [place] [phone] PCP - General 06/07/20 documented as of this encounter
--- OUTSIDE RECORDS SUMMARY | 2024-09-14 18:31 | XMS_ITS | Encounter Summary ---
Author Organization [facility] Address [address] [place] [address] Care Team Providers Care Stonemason Supervisor Name Role Phone Rubi Fernandez MD Primary Care Provider [phone] Encounter Details Date Type Department Care Team (Late st Contact Info) Description 08/17/2011 Results Only [facility] Laboratory Services - [facility] ([facility]) [address], [place] [address] Rupinder Leach, [facility] [address] [place] [address] [place] [address] Social History Tobacco Use Types [...] CALL, SILVIA Ramirez ? Accession #: ? [id number] ? : ? 1970 (Age: 41) ??F ?Collect Date: ? 08/17/2011 ? Location: ? [facility] ? Receive Date: ? 08/18/2011 ? Provider: RUPINDER LEACH FAMILY PRACTITIONER Copy to: RUBI FERNANDEZ MD ? Final Report SPECIMEN ADEQUACY ? Satisfactory for Evaluation - transformation zone component present GENERAL CATEGORIZATION ? Negative for Intraepithelial Lesion or Malignancy ?? Last Menstural Period: 07/31/2011 Specimen/Source: ??Pap Test, Cervix/Endocervix, ThinPrep Imaging System with manual evaluation Document reviewed and electronically signed by: ? Florence Rand, [facility](ASCP) ? Report ??Date: 08/20/2011 13:46 HPV [...] [facility] 08/17/2011 08/18/2011 us Rupinder Leach FAMILY PRACTITIONER PATHOLOGY ORDERABLES Final R esult Performing Organization Address City/State/[facility] Co de Phone Number [facility] [address] [place] [address] documented in this encounter Visit Diagnoses Not on filedocumented in this encounter Care Teams Stonemason Supervisor Relationship Specialty Start Date End Date Rubi Fernandez MD [address] [place] [address] PCP - General 04/16/09 06/06/20 documented as of this encounter
--- OUTSIDE RECORDS SUMMARY | 2024-09-14 18:31 | XMS_ITS | Encounter Summary ---
Author Organization [facility] Address [address] [place] [address] Care Team Providers Care Compensation Consulting Manager Name Role Phone Rubi Fernandez MD Primary Care Provider [phone] Encounter Details Date Type Department Care Team (Late st Contact Info) Description 04/26/2009 Orders Only [facility] General Surgery - [facility] [address] [place], [place] [address] Lawrence Irby MD [address] [place] [phone] Social History Tobacco Use Types Packs/Day [...] duodenal bulb and sweep were obtained. Findings: Soft Water Mechanic KUB is non specific. Study shows a [...] duodenal bulb and sweep were obtained. Findings: Soft Water Mechanic KUB is non specific. Study shows a [...] on filedocumented in this encounter Care Teams Compensation Consulting Manager Relationship Specialty Start Date End Date Rubi Fernandez MD [address] [place] [address] [address] [place] [phone] PCP - General 04/16/09 06/06/20 documented as of this encounter
--- OUTSIDE RECORDS SUMMARY | 2024-09-14 18:31 | XMS_ITS | Clinical Summary ---
Author Organization [facility] Address [address] [place] [address] Care Team Providers Care Home Planning Consultant Salesperson Name Role Phone Erin Velez JESICA Primary Care Provider Allergies Active Allergy Reactions Criticality Noted Date Comments Diltiazem Other (See Comments) 09/28/2011 [place] weak-pulse very slow No Known Drug Allergies 09/28/2011 Medications furosemide (LASIX) 40 mg tablet Take 40 mg by mouth daily. Active POTASSIUM ORAL Take 20 mg by mouth daily. Active Active Problems Problem Noted Date Diagnosed Date Supraventricular tachycardia ([facility]) 2 Encounters Date Type Department Care Team Description 08/11/2024 Lab Requisition [facility] Pathology & Laboratory [address] [address] Outr Resulting Lab, Provider 08/11/2024 Lab Requisition [facility] Pathology & Laboratory [address] [address] Outr Resulting Lab, Provider from Last 3 Months Surgical History Surgery Date Site/Laterality Comments CHOLECYSTECTOMY APPENDECTOMY AORTA SURGERY 2003 repair post ablation tear in [place] Medical History Medical History Date Comments SVT (supraventricular tachycardia) ([facility]) Hypertension Blood transfusion 2003 CHF (congestive heart failure) ([facility]) 2006 was told CHF Social History [...] C Antibody Negative Negative 08/11/2024 22:44 EST [facility] Blood VENOUS BLOOD / Unknown 08/11/2024 13:22 EST 08/11/2024 21:08 EST us Provider Outr Resulting Lab CHEMISTRY & BLOOD GA S ORDERABLES Final Result Performing Organization Address [facility]/ZIP Co de Phone Number [facility] [address] [place], [place] [id number] * HEPATITIS B PROFILE (08/11/2024 13:22 EST) Hep B Surface Ag Negative Negative 08/11/20 22:47 [facility] Hep B Surface Ab, Quantitative <3.1 See Note mIU/mL 08/11/2024 22:47 [facility] Comment: Reference Range for Hep B Surface Ab, Quant: Positive: >= 10.0 mIU/mL Negative: ??< 10.0 mIU/mL Patient is presumed to not be immune to infection with Hepatitis B Virus. Hep B Surface Ab, Qualitative Negative See Note 08/11/2024 22:47 [facility] Comment: Reference Range for Hep B Surface Ab, Qual: Unvaccinated: ??Negative Vaccinated: ??Positive Hepatitis B Core Ab, Total Negative Negative 08/11/2024 22:47 [facility] Blood VENOUS BLOOD / Unknown 08/11/2024 13:22 EST 08/11/2024 21:08 EST us Provider Outr Resulting Lab CHEMISTRY & BLOOD GA S ORDERABLES Final Result Performing Organization Address [facility] Co de Phone Number [facility] [address] [place], [place] [address] * HIV 1/2 ANTIGEN AND ANTIBODY, 4TH GENERATION (08/11/2024 13:22 EST) HIV 1 and 2 Antibody/p24 Antigen, 4th Generation Negative Negative 08/11/2024 23:03 EST [facility] Comment:If acute HIV-1 infec tion is suspected in a high risk patient, submit plasma specimen for HIV-1 RNA quantitation test. Blood VENOUS BLOOD / Unknown 08/11/2024 13:22 EST 08/11/2024 21:08 EST Narrative [facility] - 08/11/2024 23:03 EST Fourth Generation assay performed on the Siemens PastBookaur XPT. us Provider Outr Resulting Lab IMMUNOLOGY AND SEROL OGY ORDERABLES Final Result [facility] [address] [place] [address] from Last 3 Months Insurance [facility] Advance Directives For more information, please contact: [phone] * Full Code (Latest Code Status on File) Date Activated Date Inactivated Comments 09/28/2011 14:17 09/28/2011 19:10 Care Teams Home Planning Consultant Salesperson Relationship Specialty Start Date End Date Erin Velez NP [address] [place] [address] [address] [place] [address] PCP - General 06/07/20
--- OUTSIDE RECORDS SUMMARY | 2024-09-14 18:31 | XMS_ITS | Encounter Summary ---
Author Organization [facility] Address [address] [place] [address] Care Team Providers Care Watch Dial Printer Name Role Phone UriahErin alonzo JESICA Primary Care Provider [phone] Encounter Details Date Type Department Care Team (Late st Contact Info) Description 03/08/2021 Lab Requisition [facility] Pathology & Laboratory Medicine - [facility] [address] [place] [address] Outr Resulting Lab, Provider Social History Tobacco [...] MICROBIOLOGY - GENER AL ORDERABLES Final Result [facility] [address] [place] [address] * COVID-19 TESTING (03/08/2021 9:00 EDT) COVID-19 rt-PCR Result Negative Negative 03/09/2021 13:22 EDT [facility] Comment: This test has not [...] developed and its performance characteristics determined by [facility]. It has not been cleared or [...] testing. This test is based on the [facility][NOTE 3] COVID-19 Emergency Use Authorization (EUA) assay, with minor modification as defined by the FDA Performed on the Prepmatic 7 Pro RT-PCR System. Performing Lab [facility] Lab 03/09/2021 13:22 EDT [facility] Swab 03/08/2021 9:00 EDT 03/08/2021 21:39 EDT us Provider Outr Resulting Lab MICROBIOLOGY - GENER AL ORDERABLES Final Result [facility] [address] [place] [address] documented in this encounter Visit Diagnoses Not on filedocumented in this encounter Care Teams Watch Dial Printer Relationship Specialty Start Date End Date Erin Velez NP [address] [place] [address] PCP - General 06/07/20 documented as of this encounter
--- OUTSIDE RECORDS SUMMARY | 2024-09-14 18:31 | XMS_ITS | Encounter Summary ---
Author Organization [facility] Address [address] [place] [address] Care Team Providers Care Envelope Machine Operator Name Role Phone Rubi Fernandez MD Primary Care Provider [phone] Encounter Details Date Type Department Care Team (Late st Contact Info) Description 03/10/2017 Results Only [facility] [phone] Heide De La Cruz MD [facility] [facility] [address] [address] [place], [place] [address] Social History Tobacco Use Types Packs/Day Years [...] CALL, SILVIA Ramirez ? Accession #: ? [id number] ? : ? 1970 (Age: 46) ??F [...] and hyperemic, each with a pinpoint lumen. Business Systems Administrator sections are submitted as follows: BLOCK HAMMONDS 1- ??anterior cervix 2- ??anterior lower uterine segment 3- ??anterior endomyometrium 4- ??posterior cervix 5- ??posterior lower uterine segment 6- ??posterior endomyometrium 7-9- ??whorled nodules 10- ??right fimbria, bisected 11- ??right fallopian tube 12- ??left fimbria, bisected 13- ??left fallopian tube YOMAIRA Arvizu (ASCP) 03/11/2017 2:37 PM End of Report [facility] 03/10/2017 18:4 3 EDT 03/10/2017 18:43 EDT us Heide De La Cruz MD PATHOLOGY ORDERABLES Final Res ult [facility] [address] [place] [address] documented in this encounter Visit Diagnoses Not on filedocumented in this encounter Care Teams Envelope Machine Operator Relationship Specialty Start Date End Date Rubi Fernandez MD [address] [place] [address] [address] [place] [address] PCP - General 04/16/09 06/06/20 documented as of this encounter
--- OUTSIDE RECORDS SUMMARY | 2024-09-14 18:31 | XMS_ITS | Encounter Summary ---
Author Organization [facility] Address [address] [place] [address] Care Team Providers Care Exhaust Tender Name Role Phone UriahErin alonzo JESICA Primary Care Provider [phone] Encounter Details Date Type Department Care Team (Late st Contact Info) Description 08/11/2024 Lab Requisition [facility] Pathology & Laboratory Medicine - [facility] [address] [place] [address] Outr Resulting Lab, Provider Social History Tobacco [...] C Antibody Negative Negative 08/11/2024 22:44 EST [facility] Blood VENOUS BLOOD / Unknown 08/11/2024 13:22 EST 08/11/2024 21:08 EST us Provider Outr Resulting Lab CHEMISTRY & BLOOD GA S ORDERABLES Final Result Performing Organization Address City/[facility]/ZIP Co de Phone Number [facility] [address] [place] [address] * HEPATITIS B PROFILE (08/11/2024 13:22 EST) Hep B Surface Ag Negative Negative 08/11/20 22:47 [facility] Hep B Surface Ab, Quantitative <3.1 See Note mIU/mL 08/11/2024 22:47 [facility] Comment: Reference Range for Hep B Surface Ab, Quant: Positive: >= 10.0 mIU/mL Negative: ??< 10.0 mIU/mL Patient is presumed to not be immune to infection with Hepatitis B Virus. Hep B Surface Ab, Qualitative Negative See Note 08/11/2024 22:47 [facility] Comment: Reference Range for Hep B Surface Ab, Qual: Unvaccinated: ??Negative Vaccinated: ??Positive Hepatitis B Core Ab, Total Negative Negative 08/11/2024 22:47 [facility] Blood VENOUS BLOOD / Unknown 08/11/2024 13:22 EST 08/11/2024 21:08 EST us Provider Outr Resulting Lab CHEMISTRY & BLOOD GA S ORDERABLES Final Result Performing Organization Address City/[facility]/ZIP Co de Phone Number [facility] [address] [place] [address] documented in this encounter Visit Diagnoses Not on filedocumented in this encounter Care Teams Exhaust Tender Relationship Specialty Start Date End Date Erin Velez NP [address] [place] [address] [address] [place] [address] PCP - General 06/07/20 documented as of this encounter
--- OUTSIDE RECORDS SUMMARY | 2024-09-14 18:31 | XMS_ITS | Encounter Summary ---
Author Organization [facility] Address [address] [place] [address] Care Team Providers Care Rubber Goods Inspector Name Role Phone Rubi Fernandez MD Primary Care Provider [phone] Reason for Visit * Reason Comments New Patient Visit SVT- had a recent EK G Encounter Details Date Type Department Care Team (Late st Contact Info) Description 08/07/2011 15:00 EST Office Visit [facility] [place] [address] Lloyd Hernandes MD [address] [facility] [place] [address] SVT (supraventricular tachycardia) ([facility]) (Primary Dx) Social History [...] to evaluate for SVT by Dr. Fernandez [facility] Silvia Shirley is a pleasant 41-year-old woman with a long history of supraventricular tachycardia. She underwent attempted catheter ablation at [facility] in 2003. Unfortunately, the procedure resulted in [...] not have any of the records from [facility] to know if the aortic perforation [...] echo. PMH: SVT S/p attempted ablation at [facility], S/p cardiac / aortic perforation and open chest repair gerd Soc: no cigs, occ etoh, lives in [place] All: nkda Social History Substance Use Topics [...] will try to obtain the records from [facility] to ascertain the nature of the complication. [...] daily. added in this encounter Care Teams Rubber Goods Inspector Relationship Specialty Start Date End Date Rubi Fernandez MD [address] [facility] [address] [place] [address] PCP - General 04/16/09 06/06/20 documented as of this encounter
--- OUTSIDE RECORDS SUMMARY | 2024-09-14 18:31 | XMS_ITS | Encounter Summary ---
Author Organization [facility] Address [address] [place] [address] Care Team Providers Care Manager Validation Name Role Phone Rubi Fernandez MD Primary Care Provider [phone] Encounter Details Date Type Department Care Team (Latest Contact Info) Description 03/10/2017 8:09 EDT - 03/10/2017 23:59 EDT Hospital Encounter [address] [address] Unknown, Provider, Discharge Disposition: Home or Self [...] Code Departure Means Destination Home or Self [facility] documented in this encounter Plan of Treatment Not on file documented as of this encounter Visit Diagnoses Not on filedocumented in this encounter Care Teams Manager Validation Relationship Specialty Start Date End Date Rubi Fernandez MD [address] [place] [address] [address] [place] [address] PCP - General 04/16/09 06/06/20 documented as of this encounter
--- OUTSIDE RECORDS SUMMARY | 2024-09-14 18:31 | XMS_ITS | Encounter Summary ---
Author Organization [facility] Address [address] [place] [address] Care Team Providers Care Monotype Keyboard Operator Name Role Phone Rubi Fernandez MD Primary Care Provider [phone] Encounter Details Date Type Department Care Team (Late st Contact Info) Description 08/21/2009 Abstract [facility] Bariatric Surgery [facility] [address] [place] [address] Rubi Fernandez MD [address] [place] [address] [address] [place] [address] Social History Tobacco Use Types [...] 08/07/2011 added in this encounter Care Teams Monotype Keyboard Operator Relationship Specialty Start Date End Date Rubi Fernandez MD [address] [facility] [address] [place] [phone] PCP - General 04/16/09 06/06/20 documented as of this encounter
--- OUTSIDE RECORDS SUMMARY | 2024-09-14 18:31 | XMS_ITS | Encounter Summary ---
Author Organization [facility] Address [address] [place] [address] Care Team Providers Care Production Line Worker Name Role Phone Rubi Fernandez MD Primary Care Provider [phone] Encounter Details Date Type Department Care Team (Latest Contact Info) Description 04/26/2009 7:35 EDT - 04/26/2009 23:59 EDT Hospital Encounter [facility] [address] [place], [place] [address] Lawrence Irby MD [address] [place] [phone] Discharge Disposition: Home or Self Care [...] Code Departure Means Destination Home or Self Skilled Nursing documented in this encounter Plan of Treatment [...] CALL, SILVIA M ? Accession #: ? [id number] ? : ? 1970 (Age: 39) ??F [...] ??performance ? characteristics have been determined by [facility]. ??This ? laboratory is certified under [...] Final Result [facility] [address] [place] [address] * CYTOPATHOLOGY (05/30/2009 0:00 EDT) Pathology Report: CYTOPATHOLOGY REPORT ? Reports generated via electronic interface contain original data; ? however they are lacking the format of the original report. ? Caution should be taken when reading/interpreti ng unformatted reports. ? Name: ? CALL, SILVIA Ramirez ? Accession #: ? [id number] ? : ? 1970 (Age: 39) ??F ?Collect Date: ? 05/30/2009 ? Location: ? [facility] ? Receive Date: ? 05/31/2009 ? Provider: ?GREGORY SARAH SENIOR MAINTENANCE MECHANIC ? Copy to: ? Specimen/Source: ?Pap Test, [...] C TR[facility]AD 05/30/2009 05/31/2009 us Gregory Leach SENIOR MAINTENANCE MECHANIC PATHOLOGY ORDERABLES Final R esult [facility] [address] [place] [address] documented in this encounter Visit Diagnoses Not on filedocumented in this encounter Care Teams Production Line Worker Relationship Specialty Start Date End Date Rubi Fernandez MD [address] [facility] [address] [place] [phone] PCP - General 04/16/09 06/06/20 documented as of this encounter
--- OUTSIDE RECORDS SUMMARY | 2024-09-14 18:31 | XMS_ITS | Encounter Summary ---
Author Organization [facility] Address [address] [place] [address] Care Team Providers Care Collator Hand Name Role Phone Rubi Fernandez MD Primary Care Provider [phone] Encounter Details Date Type Department Care Team (Late st Contact Info) Description 06/30/2004 Results Only [facility] conversion [address] [place] [address] Quinten Howard MD [address] [place] [address] Social History Tobacco Use Types Packs/Day Years [...] Name: ? FAUSTINOSILVIA ? Accession #: ? [id number] ? : ? 1970 (Age: 34) ??F [...] inked) are submitted in one cassette. ??(Dr. Dean)/[facility] End of Report [facility] 06/30/2004 06/30/2004 14: 55 EDT us Quinten Howard MD PATHOLOGY ORDERABLES Final Result Performing Organization Address City/State/[facility] Co de Phone Number [facility] [address] [place] [address] documented in this encounter Visit Diagnoses Not on filedocumented in this encounter Care Teams Collator Hand Relationship Specialty Start Date End Date Rubi Fernandez MD [address] [place] [address] PCP - General 04/16/09 06/06/20 documented as of this encounter
--- OUTSIDE RECORDS SUMMARY | 2024-09-14 18:31 | XMS_ITS | Encounter Summary ---
Author Organization [facility] Address [address] [place] [address] Care Team Providers Care Cap Sewer Name Role Phone Rubi Fernandez MD Primary Care Provider [phone] Encounter Details Date Type Department Care Team (Late st Contact Info) Description 10/22/2009 Abstract [facility] Bariatric Surgery [facility] [address] [place] [address] Rubi Fernandez MD [address] [place] [address] Social History Tobacco Use Types [...] on filedocumented in this encounter Care Teams Cap Sewer Relationship Specialty Start Date End Date Rubi Fernandez MD [address] [place] [phone] PCP - General 04/16/09 06/06/20 documented as of this encounter
--- OUTSIDE RECORDS SUMMARY | 2024-09-14 18:31 | XMS_ITS | Encounter Summary ---
Author Organization [facility] Address [address] [place] [address] Care Team Providers Care Hand Quilter Name Role Phone Rubi Fernandez MD Primary Care Provider [phone] Encounter Details Date Type Department Care Team (Late st Contact Info) Description 08/14/2003 Results Only [facility] [address] [place] [address] Rupinder Leach, [facility] [address] [place] [address] [place] [address] Social History Tobacco Use Types [...] CALL, SILVIA Ramirez ? Accession #: ? [id number] : ? 1970 (Age: 33) ??F ?Collect Date: ? 08/14/2003 Location: ? [facility] ? Receive Date: ? 08/17/2003 Provider: ?RUPINDER LEACH MAKE UP EDITOR Copy to: ? Specimen/Source: ?ThinPrep Pap Test, [...] C TRINIDAD 08/14/2003 08/17/2003 us Rupinder Leach MAKE UP EDITOR PATHOLOGY ORDERABLES Final R esult [facility] [address] [place] [address] documented in this encounter Visit Diagnoses Not on filedocumented in this encounter Care Teams Hand Quilter Relationship Specialty Start Date End Date Rubi Fernandez MD [address] [place] [address] [address] [place] [phone] PCP - General 04/16/09 06/06/20 documented as of this encounter
== END 2024-09-14 18:22 | disposition home or self-care (01) ==
LOC: ER 18:29
PROVIDERS: Emergency Provider Emergency Medicine; PCP Nurse Practitioner Family
DX: M25.541 Pain in joints of right hand (principal); M25.542 Pain in joints of left hand
CPT/HCPCS: 99283